=== PATIENT | female | born 1970 | race Caucasian/White ===

== ENCOUNTER 2024-01-09 01:47 | Inpatient (IN) | payer BC, OTHER ==
[~2024-01-09] VITALS: Ht 167.6 cm; Wt 87.0 kg
[2024-01-09] VITALS (16 sets, daily range): BP systolic 128–177; BP diastolic 70–118
[~2024-01-09 01:47] MED LIST: ALEVE220 M1 PO; ALTACE5 MG OR; BUPROPION150 MG PO; BUSPIRONE10 MG PO; BUSPIRONE15 MG PO; BUSPIRONE30 MG PO; EFFEXOR100 MG OR; GLIPIZIDE5 M2 PO; GOLYTELY4000 ML OR; HYDROCHLOROT12.5 MG PO; KADIAN60 MG OR; LISINOP/HCTZ1 TA2 PO; LISINOP/HCTZ1 TAB PO; LISINOPRIL10 MG PO; LORTAB 7.5 OR; MELOXICAM7.5 MG OR; METFORMIN1000 MG PO; METHADONE10 M1 OR; NEURONTIN300 MG PO; NEURONTIN800 MG PO; ROPINIROLE0.25 MG PO; ROPINIROLE1 MG PO; ROPINIROLE2 MG PO; TRAZODONE HCL100 MG PO; TRAZODONE HCL50 MG PO; TRIAMCINOLON0.11 EX; ULTRAM50 MG OR; ZOFRAN4 MG/TAB PO; allo PO
--- NOTE | 2024-01-09 01:55 | NUR ---
PT AMBULATED TO RM 1 W/ STEADY GAIT.
[2024-01-09] MEDS ORDERED: SODIUM CHLORIDE 0.9% 1,000 ML IV STA (02:10)
[2024-01-09] MEDS ORDERED: VANCOMYCIN HCL 1 GM in SODIUM CHLORIDE 0.9% 250 ML IV ONE (02:15)
[2024-01-09] MEDS ORDERED: KETOROLAC TROMETHAMINE 30 MG/ML SDV IV ONE (02:15)
[2024-01-09] MEDS ORDERED: ACETAMINOPHEN 500 MG TAB PO ONE (02:15)
[2024-01-09] MEDS ORDERED: PIPERACILLIN Sodium-Tazobactam 3.375 GM in SODIUM CHLORIDE 0.9% 100 ML IV ONE (02:15)
[2024-01-09] MEDS ORDERED: GABAPENTIN 300 MG/CAP PO ONE (02:15)
[2024-01-09 02:51] LABS: BASO% 0.3 % (0-3); EOS% 3.7 % (0-8); HEMATOCRIT 39.3 % (37.0-47.0); HEMOGLOBIN 12.2 g/dl (12.0-16.0); IMMATURE GRANULOCYTES 0.5 % (0.0-5.0); LYMPH% 17.9 % (15-41); MEAN CORPUSCULAR HGB 31.4 pG CALC (26.0-32.0); MONO% 4.8 % (2-13); NEUT# 6.75 thou/uL (2.00-7.15); NEUT% 72.8 % (42-76); RED BLOOD COUNT 3.89 mill/uL (4.20-5.60); RED CELL DISTRI WIDTH 14.4 % (11.5-15.5)
[2024-01-09 02:55] LABS: ALBUMIN 4.1 g/dL (3.2-5.0); BILIRUBIN, TOTAL 0.7 mg/dL (0.02-1.3); CREATININE 0.8 mg/dL (0.5-1.0); POTASSIUM 3.4 mmol/l (3.5-5.1); TOTAL PROTEIN 8.3 g/dL (6.3-8.2)
[2024-01-09 03:15] LABS: C-REACTIVE PROTEIN 4.1 mg/dL (0-0.9)
--- NOTE | 2024-01-09 03:15 | NUR ---
PATIENT RESTING IN BED, SLEEPING, RISE AND FALL OF CHEST NOTED.
--- NOTE | 2024-01-09 04:50 | NUR ---
PATIENT RESTING IN BED, NO APPARENT DISTRESS NOTED. PATIENT ADVISED ON PLAN TO ADMIT PATIENT FOR FURTHER MANAGEMENT.
[2024-01-09] MEDS ORDERED: GABAPENTIN 300 MG/CAP PO SCH (06:24)
[2024-01-09] MEDS ORDERED: ONDANSETRON 4 MG/TAB ODT PO PRN (06:25)
[2024-01-09] MEDS ORDERED: NICOTINE TRANSDERMAL 21 MG/PATCH TD PRN (06:25)
[2024-01-09] MEDS ORDERED: ALUM & MAG HYDROX-SIMETHICONE 30 ML PO PRN (06:25)
[2024-01-09] MEDS ORDERED: ACETAMINOPHEN 325 MG/TAB PO PRN ×2 (06:25→06:30)
[2024-01-09] MEDS ORDERED: FAMOTIDINE 10MG/ML 2ML SDV IV PRN (06:25)
[2024-01-09] MEDS ORDERED: ONDANSETRON HCl 4 MG/2 ML SDV IV PRN (06:25)
[2024-01-09] MEDS ORDERED: MAGNESIUM HYDROXIDE 30 ML UDC PO PRN ×2 (06:25→06:30)
[2024-01-09] MEDS ORDERED: ENOXAPARIN SODIUM 40 MG/0.4 ML SYR SC ONE (06:25)
[2024-01-09] MEDS ORDERED: IBUPROFEN 800 MG/TAB PO PRN (06:25)
[2024-01-09] MEDS ORDERED: SODIUM CHLORIDE 0.9% 1,000 ML IV PRN ×2 (06:25→06:30)
--- NOTE | 2024-01-09 06:28 | NUR ---
REPORT GIVEN TO Masha FULLER RN
[2024-01-09] MEDS ORDERED: DEXTROSE 250 ML IV PRN ×2 (06:30→09:30)
[2024-01-09] MEDS ORDERED: KETOROLAC TROMETHAMINE 30 MG/ML SDV IV PRN (06:35)
--- NOTE | 2024-01-09 06:52 | NUR ---
REPORT GIVEN TO Kimberly MARTINEZ RN. PATIENT TO GO UP TO [facility] ON DAYHSIFT.
[2024-01-09] MEDS ORDERED: chlordiazePOXIDE HCL 25 MG CAP PO PRN (06:55)
[2024-01-09] MEDS ORDERED: LORazepam 2 MG/ML IV PRN (06:55)
[2024-01-09] MEDS ORDERED: INSULIN LISPRO 100 UNITS/ML ML SC SCH ×2 (07:00→11:00)
--- NOTE | 2024-01-09 07:22 | NUR ---
PT TRANSPORTED TO [facility] BED 272, PT TOLEREATED WELL
--- NOTE | 2024-01-09 08:15 | NUR ---
aSSESSMENT COMPLETED ON PT. pT FALLS ASLEEP while completing assessment, wakes easily. No complaints, no distress.
--- NOTE | 2024-01-09 08:44 | NUR ---
Pt denies alcohol or recreational drug use. Claims room mates do "those things' not her.
[2024-01-09] MEDS ORDERED: MULTIPLE VITAMIN 10 ML,THIAMINE HCL 100 MG in DEXTROSE 5% / 0.9% NACL 1,000 ML IV SCH (09:00)
[2024-01-09] MEDS ORDERED: PANTOPRAZOLE SODIUM Sesquihydr 40 MG/TAB PO SCH (09:00)
[2024-01-09] MEDS ORDERED: VANCOMYCIN HCL 1 GM in SODIUM CHLORIDE 0.9% 250 ML IV SCH (11:00)
--- NOTE | 2024-01-09 11:00 | NUR ---
S: SHARON YAP is a 53 F who presents with diabetic fult ucers with possible cellulitis/osteomyelitis. W 87 kg, HT 66 in, Scr= 0.8,CrCl= 92.5 ml/min A: Blood culture is pending P: Patient is on Zosyn 3,375g iv q6h. Vancomycin ordered for pharmacy to dose. Start Vancomycin 1 g IV Q8H. Vancomycin trough is drawn before the 4th dose on 01-10-24 @0230. Vancomycin goal trough is between 10-20 mcg/ml. Pharmacy will follow and or advise on antibiotics use as needed.
[2024-01-09] MEDS ORDERED: PIPERACILLIN Sodium-Tazobactam 3.375 GM in SODIUM CHLORIDE 0.9% 100 ML IV SCH (12:00)
--- NOTE | 2024-01-09 12:00 | NUR ---
pT RESTING IN BED EATING LUNCH. fINISHES LUNCH, ROLLS ON SIDE AND PROMTLY GOES TO SLEEP, SNORING SOFTLY. nO DISTRESS, NO COMPLAINTS.
--- NOTE | 2024-01-09 16:00 | NUR ---
Pt still sleeping, snoring softly. Pt wakes easily, knows where she is, oriented X 4. Pt now sitting up, completing ADLs. No distress, no complaints.
--- NOTE | 2024-01-09 19:34 | NUR ---
bedside report completed. patient laying in bed awake and alert. able to make needs known. assessment done. edema observed on both legs, +2 pitting, cool to touch. slight weaping to right lower extremity. patient denies any pain at this time. bed remains in low position. call lemus and belongings in reach.
--- NOTE | 2024-01-09 20:08 | NUR ---
01/09/2024 @1999 pt glucose was 160
[2024-01-09] MEDS ORDERED: ENOXAPARIN SODIUM 40 MG/0.4 ML SYR SC SCH (21:00)
--- NOTE | 2024-01-09 23:44 | NUR ---
patient in bed asleep, snoring noted. wakes to verbal stimuli. can make needs known. denies any needs at this moment. bed at lowest position, personal items and call light within reach.
[2024-01-10 04:00] VITALS: BP 140/98
--- NOTE | 2024-01-10 04:15 | NUR ---
patient in bed asleep on left side. wakes up to verbal stimuli. makes needs known, none needed at this time. bed at lowest position. call light within reach.
[2024-01-10 04:42] VITALS: BP 140/98
[2024-01-10 05:20] LABS: BASO% 0.3 % (0-3); EOS% 7.1 % (0-8); HEMATOCRIT 40.3 % (37.0-47.0); HEMOGLOBIN 12.5 g/dl (12.0-16.0); IMMATURE GRANULOCYTES 0.2 % (0.0-5.0); LYMPH% 25.6 % (15-41); MEAN CELL VOLUME 103.1 fL CALC (80.0-100.0); MONO% 7.6 % (2-13); NEUT# 5.3 thou/uL (2.00-7.15); NEUT% 59.2 % (42-76); RED BLOOD COUNT 3.91 mill/uL (4.20-5.60); RED CELL DISTRI WIDTH 14.5 % (11.5-15.5)
[2024-01-10 05:35] LABS: ALBUMIN 3.4 g/dL (3.2-5.0); BILIRUBIN, TOTAL 0.5 mg/dL (0.02-1.3); C-REACTIVE PROTEIN 3.9 mg/dL (0-0.9); CHOLESTEROL HDL RATIO 2.9 (<4.4 (CALC)); CREATININE 0.7 mg/dL (0.5-1.0); POTASSIUM 3.6 mmol/l (3.5-5.1); TOTAL PROTEIN 7.2 g/dL (6.3-8.2)
[2024-01-10 06:53] VITALS: BP 136/80
--- NOTE | 2024-01-10 07:00 | NUR ---
PT LAYING IN BED RESTING WITH EYES CLOSED, AROUSES EASILY TO VERBAL STIMULI, PUPILS PERRL, ABD DISTENDED AND SOFT, ACTIVE BOWEL SOUNDS, STRONG RADIAL PULSES, WEAK PEDAL PULSES, 2+ EDEMA BILAT LE, 20G RFA IV WITH FLUIDS INFUSING AT PRESCRIBED RATE, SAFETY MEASURES REINFORCED, CALL CARDONA WITHIN REACH
--- NOTE | 2024-01-10 07:35 | NUR ---
PT ASSISTED TO WC AND TAKEN TO RADIOLOGY BY NURSE
--- NOTE | 2024-01-10 08:15 | NUR ---
PT RETURNED FROM RADIOLOGY VIA WC WITH NURSE, STAND BY ASSISTANCE PROVIDED TO PT TO AMBULATE TO BED, SAFETY MEASURES REINFORCED CALL CARDONA WITHIN REACH
[2024-01-10] MEDS ORDERED: MULTIPLE VITAMIN TABLET PO SCH (09:00)
[2024-01-10] MEDS ORDERED: THIAMINE HCL 100 MG TAB PO SCH (09:00)
[2024-01-10] MEDS ORDERED: FOLIC ACID 1 MG/TAB PO SCH (09:00)
--- NOTE | 2024-01-10 09:04 | NUR ---
PT TO RADIOLOGY FOR MRI VIA
[2024-01-10 10:41] VITALS: BP 141/99
--- NOTE | 2024-01-10 11:28 | NUR ---
S: SHARON YAP is a 53 F who presents with diabetic fult ucers with possible cellulitis/osteomyelitis. W 87 kg, HT 66 in, Scr= 0.7,CrCl= 105.7 ml/min Vancomycin trough 01/10/24: 12 A: Blood culture is pending P: Patient is on Zosyn 3,375g iv q6h. Vancomycin ordered for pharmacy to dose. Continue vancomycin 1 g IV Q8H. Vancomycin trough is drawn before the dose on 01-11-24 @0230. Vancomycin goal trough is between 10-15 mcg/ml. Pharmacy will follow and or advise on antibiotics use as needed.
[2024-01-10] MEDS ORDERED: ALPRAZolam 0.5 MG/TAB PO SCH (11:30)
--- NOTE | 2024-01-10 11:45 | NUR ---
PT ASSISTED WITH GETTING SETUP FOR LUNCH, PT DENIES ANY OTHER NEEDS AT THIS TIME, CALL CARDONA WITHIN REACH
[2024-01-10] MEDS ORDERED: LEVOFLOXACIN750 MG PO (12:30)
[2024-01-10] MEDS ORDERED: XANAX0.25 MG PO (12:48)
--- NOTE | 2024-01-10 14:08 | NUR ---
PT LAYING IN BED RESTING WITH EYES CLOSED, AROUSES EASILY TO VERBAL STIMULI, CALL CARDONA WITHIN REACH
--- NOTE | 2024-01-10 15:09 | NUR ---
FAX DEMO SHEET TO [phone] RIOS WednesdayJANUARY 12 @ 11:15 DR RIOS'S OFFICE NUMBER [phone]
[2024-01-10 15:37] VITALS: BP 159/92
--- NOTE | 2024-01-10 16:00 | NUR ---
PT ATTEMPTING TO CONTACT SOMEONE TO COME PICK HER UP TO TAKE HER HOME, PT DENIES ANY NEEDS AT THIS TIME, CALL CARDONA WITHIN REACH
--- NOTE | 2024-01-10 17:00 | NUR ---
Discharge instructions given. Patient verbalizes understanding of same. Discharged in stable condition via Wheelchair to Home with family. All belongings sent with pt.
== END 2024-01-10 17:00 | disposition home or self-care (01) | DRG 638 ==
LOC: ED 01:47 → ED-I 05:09 → ED 06:27 → MS2 06:28
PROVIDERS: Family Medicine; ADMIT Student in an Organized Health Care Education/Training Program; ATTEND Student in an Organized Health Care Education/Training Program
DX: E11.69 Type 2 diabetes mellitus with other specified complication (principal); L97.516 Non-pressure chronic ulcer of other part of right foot with bone involvement without evidence of necrosis; M86.8X7 Other osteomyelitis, ankle and foot; L97.526 Non-pressure chronic ulcer of other part of left foot with bone involvement without evidence of necrosis; E11.621 Type 2 diabetes mellitus with foot ulcer; E11.65 Type 2 diabetes mellitus with hyperglycemia; L84 Corns and callosities; I10 Essential (primary) hypertension; F15.10 Other stimulant abuse, uncomplicated; F16.10 Hallucinogen abuse, uncomplicated; K74.60 Unspecified cirrhosis of liver; M10.9 Gout, unspecified; E66.9 Obesity, unspecified; F17.290 Nicotine dependence, other tobacco product, uncomplicated; T38.3X6A Underdosing of insulin and oral hypoglycemic [antidiabetic] drugs, initial encounter; Z91.128 Patient's intentional underdosing of medication regimen for other reason; Z68.30 Body mass index [BMI] 30.0-30.9, adult; Z98.84 Bariatric surgery status
CPT/HCPCS: J1650

== ENCOUNTER 2024-01-26 12:07 | Inpatient (IN) | payer BC, OTHER ==
[~2024-01-26] VITALS: Ht 167.6 cm; Wt 71.6 kg
[~2024-01-26 12:07] MED LIST changes: +LEVOFLOXACIN750 MG PO; +XANAX0.25 MG PO
--- NOTE | 2024-01-26 12:20 | NUR ---
PT ARRIVED ON UNIT @ 1220 DIRECT ADMIT TRANSPORTED VIA W/C AND SETTLED IN ROOM. ALER AND ORIENTED X 4, DENIES PAIN BUT STATED SHE IS VERY HUNGRY SHE HASNT EATEN SINCE THIS AM. FLOOR NURSE KEANU PLACED IV CATHETER, ORDERED LABS DRAWN. ORIENTED TO ROOM AND CALL CARDONA, EDUCATED ON FALL PREVENTIONS/PRECAUTIONS, HUNGER NEEDS ADDRESSED, WILL CONTINUE TO MONITOR.
[2024-01-26 12:23] VITALS: BP 161/104
[2024-01-26 13:30] LABS: BASO% 0.4 % (0-3); EOS% 6.8 % (0-8); HEMATOCRIT 38.5 % (37.0-47.0); HEMOGLOBIN 12.1 g/dl (12.0-16.0); IMMATURE GRANULOCYTES 0.1 % (0.0-5.0); LYMPH% 19.5 % (15-41); MEAN CELL VOLUME 99.2 fL CALC (80.0-100.0); MEAN CORPUSCULAR HGB 31.2 pG CALC (26.0-32.0); MEAN CORPUSCULAR HGB CONC 31.4 g/dL CAL (32.0-36.0); MONO% 5.4 % (2-13); NEUT# 4.8 thou/uL (2.00-7.15); NEUT% 67.8 % (42-76); RED BLOOD COUNT 3.88 mill/uL (4.20-5.60); RED CELL DISTRI WIDTH 14.3 % (11.5-15.5)
[2024-01-26 13:46] LABS: ALBUMIN 3.6 g/dL (3.2-5.0); BILIRUBIN, TOTAL 0.5 mg/dL (0.02-1.3); CREATININE 0.7 mg/dL (0.5-1.0); POTASSIUM 4.2 mmol/l (3.5-5.1); TOTAL PROTEIN 6.9 g/dL (6.3-8.2)
--- NOTE | 2024-01-26 13:56 | NUR ---
TRANSPORTED OF UNIT VIA W/C BY VOLUNTEER AT THIS TIME TO RADIOLOGY FOR PROCEDURE.
[2024-01-26] MEDS ORDERED: ALUM & MAG HYDROX-SIMETHICONE 30 ML PO PRN (14:10)
[2024-01-26] MEDS ORDERED: Polyethylene Glycol 3350 17 GM/PKT PO PRN (14:10)
[2024-01-26] MEDS ORDERED: LORazepam 0.5 MG/TAB PO PRN (14:10)
[2024-01-26] MEDS ORDERED: SODIUM CHLORIDE 0.9% 10 ML SYR IV PRN (14:10)
[2024-01-26] MEDS ORDERED: ACETAMINOPHEN 325 MG/TAB PO PRN (14:10)
[2024-01-26 15:24] VITALS: BP 142/95
[2024-01-26] MEDS ORDERED: CEFEPIME HYDROCHLORIDE 2 GM in SODIUM CHLORIDE 0.9% 100 ML IV SCH (15:30)
[2024-01-26] MEDS ORDERED: LISINOPRIL 20 MG/TAB PO SCH (15:30)
[2024-01-26 15:39] VITALS: BP 116/71
[2024-01-26] MEDS ORDERED: VANCOMYCIN HCL 1 GM in SODIUM CHLORIDE 0.9% 250 ML IV SCH (16:00)
[2024-01-26 18:30] VITALS: BP 141/93
[2024-01-26 19:23] VITALS: BP 141/93
--- NOTE | 2024-01-26 21:00 | NUR ---
PT RESTING NO DISTRESS NOTED ON ASSESSMENT. PT HAS BLE TOE WOUNDS PIC IN CHART. PT REPORTS NO PAIN AT THIS TIME. VS WNL ON RA. IV SITE FLUSHED WORKING PROPERLY. LUNGS CLEAR. PROVIDED PT WITH ATIVAN A SLEEPING AID SINCE PT STATED HAVING TROUBLE SLEEPING PRIOR NIGHT. SNACKS PROVIDED. CALL LIGHT WITHIN REACH.
[2024-01-26 23:54] VITALS: BP 109/67
[2024-01-27] VITALS (12 sets, daily range): BP systolic 109–149; BP diastolic 67–97
[2024-01-27 00:25] LABS: URINE BILIRUBIN - DIPSTICK Negative (NEGATIVE); URINE BLOOD DIPSTICK Negative (NEGATIVE); URINE GLUCOSE - DIPSTICK Negative (NEGATIVE); URINE KETONE Negative (NEGATIVE); URINE LEUK ESTERASE Negative (NEGATIVE); URINE NITRITE - DIPSTICK Negative (Negative); URINE PH 6.5 (4.5-8.0); URINE PROTEIN - DIPSTICK Negative (NEG-TRACE); URINE SPECIFIC GRAVITY 1.015; URINE UROBILINOGEN - DIPSTICK 0.2 E.U./dL (0.2)
--- NOTE | 2024-01-27 00:30 | NUR ---
PT RESTING NO DISTRESS NOTED. IV SITE FLUSHED WORKING PROPERLY. MRSA SWAB COLLECTED SINCE PT HAS A HISTORY OF MRSA. PT PLACED ON CONTACT PRECAUTIONS. CALL LIGHT WITHIN REACH. PLAN OF CARE ONGOING.
[2024-01-27 00:38] LABS: URINE COLOR Yellow
--- NOTE | 2024-01-27 04:09 | NUR ---
PT RESTING NO DISTRESS NOTED ON EXAM. IV SITE WORKING PROPERLY FLUSHED SL. CALL LIGHT WITHIN REACH. PLAN OF CARE ONGOING.
[2024-01-27 04:54] LABS: BASO% 0.4 % (0-3); EOS% 10.2 % (0-8); HEMATOCRIT 40.1 % (37.0-47.0); HEMOGLOBIN 12.5 g/dl (12.0-16.0); IMMATURE GRANULOCYTES 0.1 % (0.0-5.0); LYMPH% 31.7 % (15-41); MEAN CELL VOLUME 100.8 fL CALC (80.0-100.0); MEAN CORPUSCULAR HGB 31.4 pG CALC (26.0-32.0); MEAN CORPUSCULAR HGB CONC 31.2 g/dL CAL (32.0-36.0); MONO% 8.9 % (2-13); NEUT# 3.66 thou/uL (2.00-7.15); NEUT% 48.7 % (42-76); RED BLOOD COUNT 3.98 mill/uL (4.20-5.60); RED CELL DISTRI WIDTH 14.4 % (11.5-15.5)
[2024-01-27 05:17] LABS: ALBUMIN 3.5 g/dL (3.2-5.0); BILIRUBIN, TOTAL 0.6 mg/dL (0.02-1.3); CREATININE 0.8 mg/dL (0.5-1.0); MAGNESIUM 2.2 mg/dL (1.6-2.3); POTASSIUM 4.5 mmol/l (3.5-5.1); TOTAL PROTEIN 6.8 g/dL (6.3-8.2)
--- NOTE | 2024-01-27 09:07 | NUR ---
S: SHARON YAP is a 53 F who presents with acute osteomyelitis. She has a history of diabetes, hypertension, gout, neuropathy, gastritis, and cirrhosis of liver. All medications in patient's chart were reviewed. O: VS: BP= 127/79mmHg, P= 80 bpm, RR= 18 bpm,T= 96.7F W= 71.6 kg, HT= 167.64 cm, Scr=0.7mg/dL,CrCl= 96.0 ml/min A: MRSA Surveullance Culture is pending. P: Patient is on Cefepime 2GM IV Q12H. Vancomycin ordered for pharmacy to dose. Start Vancomycin 1GM IV Q8H. Vancomycin trough is drawn before the dose on 01/27/2024 at 15:30 Vancomycin goal trough is between 15-20 mcg/ml. Pharmacy will follow and or advise on antibiotics use as needed.
[2024-01-27] MEDS ORDERED: SODIUM CHLORIDE 0.9% 1,000 ML IV PRN (10:05)
--- NOTE | 2024-01-27 15:52 | NUR ---
S: SHARON YAP is a 53 F who presents with DM foot ulcers and osteomyelitis. She has a history of DM, HTN, gout, and cirrhosis. All medications in patient's chart were reviewed. O: VS: BP 134/81, P 86, RR 18, T 97 W 71.6 kg, HT 66 in, Scr=0.8, CrCl= 84.3 ml/min Vancomycin trough 01/26@1505 = 14; Predicted AUC = 479 A: MRSA nasal swab is pending. Vancomycin trough slightly below goal of 15-20, however AUC at goal between 400 - 600. No change in dose warranted. P: Patient is on cefepime 2 g IV q12h and vancomycin 1 g IV q8h Vancomycin ordered for pharmacy to dose. Continue Vancomycin 1 g IV Q8H. Vancomycin trough is drawn before the dose on 01/28/24@1530. Vancomycin goal trough is between 15-20 mcg/ml. Goal AUC 400-600. Pharmacy will follow and or advise on antibiotics use as needed.
--- NOTE | 2024-01-27 16:11 | NUR ---
RESTING IN BED AT THIS TIME AFTER SHOWERING, STABLE CONDITION, NO COMPLAINS
--- NOTE | 2024-01-27 20:00 | NUR ---
PT RESTING NO DISTRESS NOTED DURING ASSESSMENT. PT REMINDED OF PROCEDURE TOMORROW AND NPO STATUS STARTING AT MIDNIGHT. PT STATED UNDERSTANDING. IV SITE FLUSHED WORKING PROPERLY NS INFUSION @ 100ML/HR ONGOING. VS WNL ON RA NO PAIN REPORTED AT THIS TIME. CALL LIGHT WITHIN REACH. PLAN OF CARE ONGOING.
[2024-01-28] VITALS (13 sets, daily range): BP systolic 123–150; BP diastolic 84–107
--- NOTE | 2024-01-28 05:03 | NUR ---
PT RESTING NO DISTRESS NOTED DURING EXAM. IV SITE CHECKED WORKING PROPERLY. CALL LIGHT WITHIN REACH. PLAN OF CARE ONGOING.
[2024-01-28 05:19] LABS: BASO% 0.5 % (0-3); EOS% 10.7 % (0-8); HEMATOCRIT 37.3 % (37.0-47.0); HEMOGLOBIN 11.9 g/dl (12.0-16.0); IMMATURE GRANULOCYTES 0.2 % (0.0-5.0); LYMPH% 28.9 % (15-41); MEAN CELL VOLUME 100.3 fL CALC (80.0-100.0); MEAN CORPUSCULAR HGB CONC 31.9 g/dL CAL (32.0-36.0); MONO% 8.3 % (2-13); NEUT# 3.27 thou/uL (2.00-7.15); NEUT% 51.4 % (42-76); RED BLOOD COUNT 3.72 mill/uL (4.20-5.60); RED CELL DISTRI WIDTH 14.4 % (11.5-15.5)
[2024-01-28 05:29] LABS: ALBUMIN 3.4 g/dL (3.2-5.0); BILIRUBIN, TOTAL 0.4 mg/dL (0.02-1.3); CREATININE 0.6 mg/dL (0.5-1.0); MAGNESIUM 2.1 mg/dL (1.6-2.3); POTASSIUM 4.3 mmol/l (3.5-5.1); TOTAL PROTEIN 6.7 g/dL (6.3-8.2)
--- NOTE | 2024-01-28 07:05 | NUR ---
PATIENT LEFT TO OR.
[2024-01-28] MEDS ORDERED: STERILE WATER FOR IRRIGATION 1,000 ML BTL IR ONE (07:06)
[2024-01-28] MEDS ORDERED: SODIUM CHLORIDE 1,000 ML BTL IR ONE (07:06)
[2024-01-28] MEDS ORDERED: BUPIVACAINE HCL PF 0.5% 30 ML VIAL ONE (07:06)
[2024-01-28] MEDS ORDERED: SODIUM CHLORIDE 0.9% 1,000 ML IV ONE (07:15)
[2024-01-28] MEDS ORDERED: SODIUM CHLORIDE 0.9% 10 ML SYR ONE (07:17)
[2024-01-28] MEDS ORDERED: KETOROLAC TROMETHAMINE 30 MG/ML SDV ONE (08:46)
--- NOTE | 2024-01-28 09:48 | NUR ---
PT RETURNED FROM OR, ASSISTED PT TO BSC WITH NO WEIGHT ON RIGHT FOOT. RIGHT FOOT HAS DRESSING WITH SOME SHADOWING PRESENT ON END OF TOE AREA. RESPIRATIONS ARE EVEN AND UNLABORED, LUNGS ARE CLEAR, BOWEL SOUNDS ARE ACTIVE, PEDAL PULSES PALPABLE ON LEFT FOOT, LEFT GREAT TOE AND 2ND TOE TIP APPEAR TO HAVE AN OLD WOUND IN STAGES OF HEALING, RIGHT LOWER LEG WITH SOME REDNESS NOTED. PT DENIES PAIN AT THIS TIME BUT COMPLAINS OF BEING HUNGRY. ICE CHIPS PROVIDED, WILL ADVANCE DIET PER ORDER TOLERATED, RIGHT FOOT ELEVATED ON 2 PILLOWS AT THIS TIME.
--- NOTE | 2024-01-28 10:17 | NUR ---
VANCO WAS STARTED IN OR AT 0815 AND RESUMED IMMEDIATELY UPON ARRIVAL TO ROOM.
[2024-01-28] MEDS ORDERED: LIDOCAINE HCL 2% 2ML SDV IV ONE (12:06)
[2024-01-28] MEDS ORDERED: PROPOFOL 200 MG/20 ML VIAL IV ONE (12:06)
[2024-01-28] MEDS ORDERED: SUGAMMADEX SODIUM 200 MG/2 ML SDV IV ONE (12:06)
--- NOTE | 2024-01-28 12:07 | NUR ---
PT RESTING COMFORTABLY AT THIS TIME, PT SLEEPING.
--- NOTE | 2024-01-28 15:58 | NUR ---
PT IS SLEEPING COMFORTABLY IN BED AT THIS TIME. RIGHT FOOT IS ELEVATED ON 2 PILLOWS.
--- NOTE | 2024-01-28 16:20 | NUR ---
S: SHARON YAP is a 53 F who presents with OSTEOMYELITIS. All medications in patient's chart were reviewed. O: VS: BP 123/84, P 85, RR 18,T 96.4 W <71kg>, HT<66in>, Scr=<0.6>,CrCl= <99ml/min> TROUGH=21 A: WOUND CULTURE IS PENDING P: Patient is on CEFEPIME 2GM IV Q12H AND VANCOMYCIN 1GM IV Q8H. Vancomycin ordered for pharmacy to dose. CONTINUE Vancomycin 1 GM IV Q8H. Vancomycin trough is drawn before the 3RD dose on 01/29/24 @0730. CONTINUE SAME DOSEAGE DESPITE TROUGH OF 21 DUE TO ABX GIVEN LATER THAN NORMAL DUE TO SURGERY, PREVIOUS TROUGH =14 WITH SAME DOSAGE, AND PT KIDNEY FUNCTION IMPROVING. REASSESS ON 3RD DOSE TO DETERMINE THERAPY MODIFICATION. Vancomycin goal trough is between 15-20 mcg/ml. Pharmacy will follow and or advise on antibiotics use as needed.
--- NOTE | 2024-01-28 19:50 | NUR ---
PT RESTING NO DISTRESS NOTED ON EXAM. IV SITE FLUSHED WORKING PROPERLY. NO PAIN REPORTED AT THIS TIME VS WNL ON RA. DRESSING ON RIGHT FOOT INTACT DRAINAGE FROM THE BETADINE WITH BOOT ON. BLE REDNESS WITH +1 EDEMA GREATER ON THE RIGHT LEG. BSC SETUP. CALL LIGHT WITHIN REACH. PLAN OF CARE ONGOING.
--- NOTE | 2024-01-29 | NUR ---
PT RESTING NO DISTRESS NOTED ON EXAM. RIGHT LEG ELEVATED. IV SITE FLUSHED WORKING PROPERLY ABX GIVEN. CALL LIGHT WITHIN REACH. PLAN OF CARE ONGOING.
[2024-01-29 03:53] VITALS: BP 138/97
--- NOTE | 2024-01-29 04:00 | NUR ---
PT RESTING NO DISTRESS NOTED ON EXAM. WHEN PT AWAKEN SHE STATED THAT SHE WAS HAVING PAIN ON HER RIGHT FOOT. ABX IV GIVEN AND IV FLUIDS ONGOING. NURSE INFORMED PT THAT SHE WOULD CHECK COMPUTER TO SEE WHAT SHE HAD AVAILABLE TO GIVE HER. WHEN NURSE RETURNED TO TELL HER THAT SHE ONLY HAS TYLENOL AVAILABLE SHE WAS ASLEEP. CALL LIGHT WITHIN REACH. PLAN OF CARE ONGOING.
[2024-01-29 06:00] LABS: BASO% 0.4 % (0-3); EOS% 7.4 % (0-8); HEMATOCRIT 37.8 % (37.0-47.0); HEMOGLOBIN 11.8 g/dl (12.0-16.0); IMMATURE GRANULOCYTES 0.1 % (0.0-5.0); LYMPH% 26.1 % (15-41); MEAN CELL VOLUME 99.5 fL CALC (80.0-100.0); MEAN CORPUSCULAR HGB 31.1 pG CALC (26.0-32.0); MEAN CORPUSCULAR HGB CONC 31.2 g/dL CAL (32.0-36.0); MONO% 7.4 % (2-13); NEUT# 3.96 thou/uL (2.00-7.15); NEUT% 58.6 % (42-76); RED BLOOD COUNT 3.8 mill/uL (4.20-5.60); RED CELL DISTRI WIDTH 14.4 % (11.5-15.5)
[2024-01-29 06:25] VITALS: BP 150/102
[2024-01-29 06:35] LABS: ALBUMIN 3.5 g/dL (3.2-5.0); CREATININE 0.7 mg/dL (0.5-1.0); MAGNESIUM 2.1 mg/dL (1.6-2.3); POTASSIUM 4.6 mmol/l (3.5-5.1)
--- NOTE | 2024-01-29 06:37 | NUR ---
PT STATED SHE IS HAVING PAIN ON HER RIGHT FOOT 02/04. NURSE CONTACTED GAS APPLIANCE REPAIRER PROVIDER AND RECEIVED AN ORDER FOR LORTAB 5MG Q4H PRN. AT THIS TIME NURSE IS WAITING ON PHARMACY.
[2024-01-29 06:41] LABS: BILIRUBIN, TOTAL 0.7 mg/dL (0.02-1.3)
[2024-01-29] MEDS ORDERED: HYDROcodone 5 MG/Acetaminophen 325 MG/COMBO PO PRN (06:45)
--- NOTE | 2024-01-29 08:00 | NUR ---
RECEIVED REPORT FROM NIGHTSHIFT NURSE SELWYN NICOLE. PT NOTED SITTING UP SEMI FOWLERS IN BED, EATING BREAKFAST AT THIS TIME. RT FOOT ELEVATED WITH PILLOWS, BOOT NOTED AND DSG TO RT FOOT NOTED. BETADINE PRESENT ON DSG. PT IS A/OX3, RM AIR. DENIES ANY PAIN AT THIS TIME. ASSESSMENT COMPLETED (SEE NURSING INTERVENTIONS) AND IV SITE APPEARS HEALTHY AND INTACT WITH FLUIDS RUNNING PER EMAR. EDUCATED PT ON PLAN OF CARE, POST OP CARE, AND MED SCHEDULE. CALL LIGHT WITHIN REACH AND SAFETY PRECAUTIONS IN PLACE.
[2024-01-29] MEDS ORDERED: oxyCODONE 10MG/APAP 325 MG 1 COMBO TAB PO PRN (10:00)
[2024-01-29] MEDS ORDERED: MORPHINE SULFATE 4 MG/ML VIAL IV PRN (10:00)
[2024-01-29 11:29] VITALS: BP 138/91
--- NOTE | 2024-01-29 11:50 | NUR ---
ADMINSITERED MEDICATION PER EMAR FOR PAIN. PT NOTED LAYING IN BED SEMI FOWLERS, RT FOOT ELEVATED. LIGHTS TURNED OFF AND COMFORT MEASURES IN PLACE, ENCOURAGED RELAXTION TECHNIQUES. NO S/S OF DISTRESS. CALL LIGHT WITHIN REACH AND SAFETY PRECAUTIONS IN PLACE.
[2024-01-29] MEDS ORDERED: VANCOMYCIN HCL 1 GM in SODIUM CHLORIDE 0.9% 250 ML IV SCH (12:00)
--- NOTE | 2024-01-29 12:32 | NUR ---
S: SHARON YAP is a 53 F who presents with OSTEOMYELITIS. All medications in patient's chart were reviewed. O: VS: BP 138/91, P 96, RR 20,T 97f W 71kg, HT 66 in, Scr= 0.7,CrCl= 96ml/min TROUGH=25 INCREASE FROM 21 KIDNEY FUNCTION STABLE A: WOUND CULTURE IS PENDING P: Patient is on CEFEPIME 2GM IV Q12H AND VANCOMYCIN 1GM IV Q8H Vancomycin ordered for pharmacy to dose. DECREASE TO Vancomycin 1GM IV Q12H. Vancomycin trough is drawn before the 3RD dose on 01/30/24 @1130. Vancomycin goal trough is between 15-20 mcg/ml. CHNAGE TO Q12H PREDICTED TROUGH =13.8 AND AUC 1 =509. WILL DRAW ON THE 3RD DOSE TO MORE CLOSELY MONITOR THERAPY Pharmacy will follow and or advise on antibiotics use as needed.
[2024-01-29 15:18] VITALS: BP 146/96
--- NOTE | 2024-01-29 16:00 | NUR ---
PT RECEIVED MEDICATION PER EMAR FOR PAIN, TOLERATED WELL. PT LAYING IN BED SEMI FOWLERS, EYES CLOSED RESTING AT THIS TIME. NO S.S OF DISTRESS. RT FOOT REMAINS ELEVATED ON PILLOWS. CALL LIGHT WITHIN REACH AND SAFETY PRECAUTIONS IN PLACE.
[2024-01-29 18:24] VITALS: BP 146/98
--- NOTE | 2024-01-29 20:00 | NUR ---
PT ON BSC STATING SHE IS IN PAIN 7/10 ON HER RIGHT FOOT. NURSE PROVIDED IV PAIN MEDICATION. DRESSING INTACT WITH BETADINE STAIN AND BOOT ON. ASSESSMENT DONE VS WNL ON RA LUNGS CLEAR. CALL LIGHT WITHIN REACH. PLAN OF CARE ONGOING.
[2024-01-29 23:48] VITALS: BP 140/91
--- NOTE | 2024-01-30 | NUR ---
PT RESTING NO DISTRESS NOTED ON EXAM. BSC SETUP FOR PT. IV SITE CHECKED WORKING PROPERLY. CALL LIGHT WITHIN REACH. PLAN OF CARE ONGOING.
--- NOTE | 2024-01-30 04:00 | NUR ---
PT RESTING NO DISTRESS NOTED ON EXAM. RIGHT LEG ELEVATED WITH BOOT ON. IV SITE CHECKED WORKING PROPERLY. CALL LIGHT WITHIN REACH. PLAN OF CARE ONGOING.
[2024-01-30 05:07] VITALS: BP 142/90
[2024-01-30 05:29] LABS: HEMATOCRIT 38.2 % (37.0-47.0); HEMOGLOBIN 11.7 g/dl (12.0-16.0); MEAN CELL VOLUME 101.3 fL CALC (80.0-100.0); MEAN CORPUSCULAR HGB CONC 30.6 g/dL CAL (32.0-36.0); RED BLOOD COUNT 3.77 mill/uL (4.20-5.60); RED CELL DISTRI WIDTH 14.3 % (11.5-15.5)
[2024-01-30 05:41] LABS: ALBUMIN 3.4 g/dL (3.2-5.0); BILIRUBIN, TOTAL 0.5 mg/dL (0.02-1.3); CREATININE 0.7 mg/dL (0.5-1.0); POTASSIUM 4.2 mmol/l (3.5-5.1); TOTAL PROTEIN 6.9 g/dL (6.3-8.2)
[2024-01-30 07:22] VITALS: BP 156/102
--- NOTE | 2024-01-30 08:17 | NUR ---
RECEIVED REPORT FROM NIGHTSHIFT NURSE SELWYN NICOLE. PT NOTED LAYING IN BED SMEI FOWLERS, FINISHED BREAKFAST. PT A/OX3, PRESENTS DROWSY AND C/O PAIN IN RT FOOT 6 OUT OF 10. PT ADMINISTERED PAIN MEDICAITON PER EMAR. PT BOOT REAPPLIED TO RT FOOT, DSG CDI. RT FOOT ELEVATED WITH PILLOWS. NURSING ASSESSMENT COMPELTED, IV SITE APPEARS HEALTHY AND INTACT WITH FLUIDS RUNNING PER EMAR. EDUCATED PT ON PLAN OF CARE AND MED SCHEDULE. NO S/S OF DISTRESS. CALL LIGHT WITHIN REACH AND SAFETY PRECAUTIONS IN PLACE.
--- NOTE | 2024-01-30 12:36 | NUR ---
S: SHARON YAP is a 53 F who presents with osteomyelitis. All medications in patient's chart were reviewed. O: VS: BP 156/102, P 83, RR 18,T 96.6 f W 71kg, HT 66in, Scr=0.7,CrCl= 96ml/min trough =18 A: WOUND CULTURE SHOWS NO GROWTH P: Patient is on CEFEPIME 2GM IV Q12H AND VANCOMYCIN 1GM IV Q12H Vancomycin ordered for pharmacy to dose. Continue Vancomycin 1G IV Q12H. Vancomycin trough is drawn before the 4th dose on 01/31/24 @2330. Vancomycin goal trough is between 15-20 mcg/ml. Pharmacy will follow and or advise on antibiotics use as needed.
--- NOTE | 2024-01-30 12:36 | NUR ---
PT WAS C/O PAIN TO RT FOOT, SEVERE 9 OUT OF 10. PAIN MEDICATION ADMINSITERED PER EMAR. PT LAYING IN BED SUPINE WITH RT FOOT ELEVATED. ENCOURAGED PT TO REST AT THIS TIME. NO S/S OF DISTRESS. CALL LIGHT WITHIN REACH AND SAFETY PRECAUTIONS IN PLACE.
[2024-01-30 13:33] VITALS: BP 153/113
--- NOTE | 2024-01-30 17:02 | NUR ---
PT SITTING UP FOWLERS IN BED WITH RT FOOT ELEVATED, EATING DINNER. NO S/S OF DISTRESS AT THIS TIME. CALL LIGHT WITHIN REACH AND SAFETY PRECAUTIONS PLACE.
[2024-01-30 18:32] VITALS: BP 148/96
[2024-01-30] MEDS ORDERED: ENOXAPARIN SODIUM 40 MG/0.4 ML SYR SC SCH (21:00)
[2024-01-30 23:07] VITALS: BP 124/64
[2024-01-31 03:59] VITALS: BP 140/91
--- NOTE | 2024-01-31 04:02 | NUR ---
PT IN BED REPORTS PAIN TO R TOES. PT MEDICATED PER MAR. NO S/S OF DISTRESS NOTED. BREATHIG IS EVEN ADN UNLABORED. NO OTHER NEEDS OR CONCERNS VOICED, CALL LIGHT IN REACH AND BED IN LOWEST POSITION.
[2024-01-31 04:54] LABS: HEMATOCRIT 40.9 % (37.0-47.0); HEMOGLOBIN 12.5 g/dl (12.0-16.0); MEAN CELL VOLUME 100.5 fL CALC (80.0-100.0); MEAN CORPUSCULAR HGB 30.7 pG CALC (26.0-32.0); MEAN CORPUSCULAR HGB CONC 30.6 g/dL CAL (32.0-36.0); RED BLOOD COUNT 4.07 mill/uL (4.20-5.60)
[2024-01-31 05:17] LABS: ALBUMIN 3.4 g/dL (3.2-5.0); BILIRUBIN, TOTAL 0.5 mg/dL (0.02-1.3); CREATININE 0.6 mg/dL (0.5-1.0); POTASSIUM 4.2 mmol/l (3.5-5.1); TOTAL PROTEIN 6.7 g/dL (6.3-8.2)
[2024-01-31 07:07] VITALS: BP 108/75
--- NOTE | 2024-01-31 07:55 | NUR ---
PATIENT SITTING UP IN BED EATING BREAKFAST. PATIENT A&OX3. BREATHING EVEN AND UNLABORED ON ROOM AIR. LUNG SOUNDS CLEAR. BOWELS ACTIVE IN ALL 4 QUADS. IV IN RFA INFUSING 20 MLS TO KVO. IV SITE CLEAN AND INTACT. TELE INTACT. PT DENIES ANY N/D/V AT THIS TIME. STATES PAIN IS A 5 OUT OF 10. MEDICATION REVEIWED. BED IN LOWEST POSITION. CALL LIGHT WITHIN REACH; PT VERBALIZED UNDERSTANDING OF USE.
[2024-01-31 10:40] VITALS: BP 141/86
[2024-01-31] MEDS ORDERED: SODIUM CHLORIDE 0.9% 0 ML IV ONE (11:16)
--- NOTE | 2024-01-31 12:24 | NUR ---
PATIENT LYING SEMI-FOWLERS IN BED WATCHING TV. BREATHING EVEN AND UNLABORED ON ROOM AIR. IV IN RFA INFUSING VANCOMYCIN @125MLS PER EMAR; SITE CLEAN AND INTACT. DENIES ANY N/D/V. DENIES ANY PAIN. TELE INTACT. BC NEAR BED AND WITHIN REACH. BED IN LOWEST POSITION. CALL LIGHT WITHIN REACH; VERBALIZED UNDERSTANDING OF USE. NO NEEDS AT THIS TIME.
[2024-01-31 15:35] VITALS: BP 133/86
--- NOTE | 2024-01-31 16:00 | NUR ---
PATIENT LYING SEMI-FOWLERS IN BED WITH RIGHT FOOT ELEVATED, WATCHING TV. IV IN RFM INFUSING NS @20MLS. IV SITE CLEAN AND INTACT. TELE INTACT. PT DENIES ANY N/D/V AT THIS TIME. RATES PAIN A 3 OUT OF 10;POST ADMIN OF PAIN MED. BC NEAR BED AND WITHIN REACH, WELL PERSONAL ITEMS. BED IN LOWEST POSITION. CALL LIGHT WITHIN REACH. NO NEEDS AT THIS TIME.
--- NOTE | 2024-01-31 19:20 | NUR ---
awakens easily. no c/o pain voiced. monitor worker shows sinus rhythm ivcd. ivf infusing per rfa site. po fluids taken fair. voids per bsc. fall precautions cont.
[2024-01-31 19:48] VITALS: BP 132/84
--- NOTE | 2024-01-31 23:29 | NUR ---
lab here. blood drawn.
--- NOTE | 2024-02-01 00:01 | NUR ---
conveyor monitor shows sinus rhythm ivcd hr 97.
[2024-02-01 00:15] VITALS: BP 161/112
--- NOTE | 2024-02-01 00:15 | NUR ---
ativan 0.5mg po given per request for sleep.
[2024-02-01 00:41] VITALS: BP 151/99
--- NOTE | 2024-02-01 04:00 | NUR ---
eyes closed. no distress. ivf cont.
[2024-02-01 06:52] VITALS: BP 148/96
--- NOTE | 2024-02-01 07:48 | NUR ---
Patient resting in bed with eyes closed. Breathing even and unlabored on room air. Tele intact. IV in RFA infusing NS @20mls; site clean and intact. BC within reach. Rt foot elevated on 2 pillows. States pain is a 5 out of 10; medication reviewed. Denies any N/D/V at this time. Personal items within reach. Call light in reach; verbalized understanding of use.
[2024-02-01] MEDS ORDERED: CIPROFLOXACN500 MG PO (10:28)
[2024-02-01 10:29] VITALS: BP 139/91
[2024-02-01] MEDS ORDERED: PERCOCET 10/31 COMBO PO (10:29)
[2024-02-01] MEDS ORDERED: VIBRAMYCIN100 M2 PO (10:29)
[2024-02-01] MEDS ORDERED: LORAZEPAM0.5 MG PO (10:30)
--- NOTE | 2024-02-01 11:20 | NUR ---
S: SHARON YAP is a 53 F who presents with osteomyelitis, cellulitis. She has a history of diabetes, hypertension, gout, substance abuse. All medications in patient's chart were reviewed. O: VS: BP 139/91 mmHg, P 90bpm, RR 18 breaths/min, T 96.9 F W 71.6kg, HT 167.64cm, Scr=0.6mg/dL, CrCl= 125.4 ml/min A: Wound culture shows no growth after 48 hours. Nasal culture shows no growth. P: Patient is on Cefepime 2gm IV Q12H. Vancomycin ordered for pharmacy to dose. Current trough rakesh 01/31/24 is 15, within goal. Continue Vancomycin 1gm IV Q12H. Vancomycin trough is drawn before the dose on 02/02/2024 at 11:30. Vancomycin goal trough is between 15-20 mcg/ml. Pharmacy will follow and or advise on antibiotics use as needed.
[2024-02-01 11:26] VITALS: BP 139/91
--- NOTE | 2024-02-01 12:00 | NUR ---
Patient lying in bed watching tv. Breathing even and unlabored on room air. IV in RFA infusing NS @20mls. Rt foot elevated with 2 pillows. Denies any N/D/V at this time. Tele intact. BSC near bed. States she would like something for pain; medication reviewed with pt. Bed in lowest position. Personal items within reach. Call light within reach; verbalized understanding of use.
--- NOTE | 2024-02-01 13:30 | NUR ---
completed wound care on right foot and toe;patient tolerated woudn care with some pain;medicated patient prior to wound care
--- NOTE | 2024-02-01 13:54 | NUR ---
IV site discontinued, cath intact. No edema , no redness, voices no discomfort. Discharge instructions given. Patient verbalizes understanding of same. Discharged in stable condition via Wheelchair to Home with family. All belongings sent with pt.
== END 2024-02-01 13:56 | DRG 617 ==
LOC: MS2 12:07
PROVIDERS: Nurse Practitioner Family; ADMIT Internal Medicine; ATTEND Internal Medicine
PROC: 0Y6T0Z0 Detachment at Right 3rd Toe, Complete, Open Approach (ICD-10-PCS; principal; 2024-01-28)
PROC: 0Y6R0Z3 Detachment at Right 2nd Toe, Low, Open Approach (ICD-10-PCS; 2024-01-28)
PROC: 0QBQ0ZX Excision of Right Toe Phalanx, Open Approach, Diagnostic (ICD-10-PCS; 2024-01-28)
DX: E11.69 Type 2 diabetes mellitus with other specified complication (principal); L03.115 Cellulitis of right lower limb; M86.171 Other acute osteomyelitis, right ankle and foot; L03.116 Cellulitis of left lower limb; L97.518 Non-pressure chronic ulcer of other part of right foot with other specified severity; E11.628 Type 2 diabetes mellitus with other skin complications; E11.621 Type 2 diabetes mellitus with foot ulcer; I10 Essential (primary) hypertension; E11.40 Type 2 diabetes mellitus with diabetic neuropathy, unspecified; M10.9 Gout, unspecified; K75.81 Nonalcoholic steatohepatitis (NASH); K74.60 Unspecified cirrhosis of liver; E66.9 Obesity, unspecified; F41.9 Anxiety disorder, unspecified; R45.1 Restlessness and agitation; F17.290 Nicotine dependence, other tobacco product, uncomplicated; Z98.84 Bariatric surgery status; Z68.25 Body mass index [BMI] 25.0-25.9, adult; Z20.822 Contact with and (suspected) exposure to COVID-19
CPT/HCPCS: J0692; J1650

== ENCOUNTER 2024-02-09 02:38 | Emergency (ER) | payer BC, OTHER ==
[~2024-02-09] VITALS: Ht 167.6 cm; Wt 95.0 kg
[~2024-02-09 02:38] MED LIST changes: +CIPROFLOXACN500 MG PO; +LORAZEPAM0.5 MG PO; +PERCOCET 10/31 COMBO PO; +VIBRAMYCIN100 M2 PO
[2024-02-09] MEDS ORDERED: GABAPENTIN 300 MG/CAP PO ONE (03:10)
[2024-02-09] MEDS ORDERED: GABAPENTIN400 MG PO (03:11)
[2024-02-09 03:22] VITALS: BP 139/93
[2024-02-10] MEDS ORDERED: CLINDAMYCIN HY300 MG PO (18:19)
== END 2024-02-09 03:28 | disposition home or self-care (01) | DRG 74 ==
LOC: ED 02:38
DX: E11.42 Type 2 diabetes mellitus with diabetic polyneuropathy (principal); I10 Essential (primary) hypertension; K74.60 Unspecified cirrhosis of liver; M10.9 Gout, unspecified; Z98.84 Bariatric surgery status

== ENCOUNTER 2024-02-10 15:54 | Emergency (ER) | payer BC, OTHER ==
[~2024-02-10] VITALS: Ht 167.6 cm; Wt 97.5 kg
[2024-02-10] VITALS (11 sets, daily range): BP systolic 106–152; BP diastolic 53–122
[~2024-02-10 15:54] MED LIST changes: +GABAPENTIN400 MG PO
[2024-02-10] MEDS ORDERED: CLINDAMYCIN PHOSPHATE 50 ML IV ONE (16:30)
[2024-02-10 17:01] LABS: BASO% 0.7 % (0-3); EOS% 6.8 % (0-8); HEMATOCRIT 38.5 % (37.0-47.0); IMMATURE GRANULOCYTES 0.1 % (0.0-5.0); LYMPH% 17.1 % (15-41); MEAN CELL VOLUME 97.5 fL CALC (80.0-100.0); MEAN CORPUSCULAR HGB 30.4 pG CALC (26.0-32.0); MEAN CORPUSCULAR HGB CONC 31.2 g/dL CAL (32.0-36.0); MONO% 7.5 % (2-13); NEUT# 5.89 thou/uL (2.00-7.15); NEUT% 67.8 % (42-76); RED BLOOD COUNT 3.95 mill/uL (4.20-5.60); RED CELL DISTRI WIDTH 13.8 % (11.5-15.5)
[2024-02-10 17:13] LABS: CREATININE 0.7 mg/dL (0.5-1.0)
[2024-02-10 17:20] LABS: ALBUMIN 4.4 g/dL (3.2-5.0); POTASSIUM 3.2 mmol/l (3.5-5.1); TOTAL PROTEIN 8.5 g/dL (6.3-8.2)
[2024-02-10] MEDS ORDERED: CLINDAMYCIN HY300 MG PO (18:19)
== END 2024-02-10 18:57 | disposition home or self-care (01) | DRG 638 ==
LOC: ED 15:54
PROVIDERS: Family Medicine
DX: E11.621 Type 2 diabetes mellitus with foot ulcer (principal); Z59.02 Unsheltered homelessness; L97.529 Non-pressure chronic ulcer of other part of left foot with unspecified severity; L03.032 Cellulitis of left toe; L03.031 Cellulitis of right toe; I10 Essential (primary) hypertension; E11.40 Type 2 diabetes mellitus with diabetic neuropathy, unspecified; K74.60 Unspecified cirrhosis of liver; M10.9 Gout, unspecified; Z72.0 Tobacco use; Z89.422 Acquired absence of other left toe(s); T38.3X6A Underdosing of insulin and oral hypoglycemic [antidiabetic] drugs, initial encounter; Z91.120 Patient's intentional underdosing of medication regimen due to financial hardship; Z89.421 Acquired absence of other right toe(s)
CPT/HCPCS: J0736

== ENCOUNTER 2024-02-22 19:34 | Emergency (ER) | payer OTHER ==
[~2024-02-22] VITALS: Ht 167.6 cm; Wt 102.0 kg
[~2024-02-22 19:34] MED LIST changes: +CLINDAMYCIN HY300 MG PO
[2024-02-22] MEDS ORDERED: LORazepam 2 MG/ML IV ONE (19:45)
[2024-02-22 20:26] LABS: BASO% 1.4 % (0-3); EOS% 4.5 % (0-8); HEMATOCRIT 37.2 % (37.0-47.0); HEMOGLOBIN 11.9 g/dl (12.0-16.0); IMMATURE GRANULOCYTES 0.1 % (0.0-5.0); LYMPH% 29.8 % (15-41); MEAN CELL VOLUME 95.1 fL CALC (80.0-100.0); MEAN CORPUSCULAR HGB 30.4 pG CALC (26.0-32.0); MONO% 7.8 % (2-13); NEUT# 5.82 thou/uL (2.00-7.15); NEUT% 56.4 % (42-76); RED BLOOD COUNT 3.91 mill/uL (4.20-5.60); RED CELL DISTRI WIDTH 14.3 % (11.5-15.5)
[2024-02-22 20:45] LABS: ALBUMIN 4.6 g/dL (3.2-5.0); ALKALINE PHOSPHATASE 85 u/l (38-126); ANION GAP 16 (6-22 (CALC)); BILIRUBIN, TOTAL 1.4 mg/dL (0.02-1.3); BUN 17 mg/dL (7-17); BUN/CREATININE RATIO 22 (12-20 (CALC)); CARBON DIOXIDE 18 mmol/l (22-30); CHLORIDE 110 mmol/l (95-108); CREATININE 0.8 mg/dL (0.5-1.0); ESTIMATED GFR 89 ML/MIN (>=90 (CALC)); LIPASE 170 u/l (23-300); SGOT/AST 37 u/l (14-36); SODIUM 140 mmol/l (137-146); TOTAL PROTEIN 9.1 g/dL (6.3-8.2)
[2024-02-22 20:52] LABS: INTERNATIONAL NORMALIZED RATIO 1.6 RATIO (0.7-1.3)
[2024-02-22 21:00] LABS: D-DIMER 3.91 mg/L (0.19-0.60)
[2024-02-22 23:00] VITALS: BP 151/108
[2024-02-22 23:16] VITALS: BP 154/103
[2024-02-23 07:04] VITALS: BP 154/103
== END 2024-02-23 06:45 | disposition home or self-care (01) ==
LOC: ED 19:34
PROVIDERS: Family Medicine
DX: F10.10 Alcohol abuse, uncomplicated (principal); F41.9 Anxiety disorder, unspecified; K74.60 Unspecified cirrhosis of liver; R18.8 Other ascites; I10 Essential (primary) hypertension; E11.40 Type 2 diabetes mellitus with diabetic neuropathy, unspecified; I45.2 Bifascicular block; M10.9 Gout, unspecified; Z72.0 Tobacco use
CPT/HCPCS: J2060; Q9967

== ENCOUNTER 2024-03-01 03:25 | Emergency (ER) | payer BC, OTHER ==
[~2024-03-01] VITALS: Ht 167.6 cm; Wt 95.0 kg
[2024-03-01] VITALS (8 sets, daily range): BP systolic 115–156; BP diastolic 94–123
[2024-03-01] MEDS ORDERED: ACETAMINOPHEN 500 MG TAB PO ONE (03:35)
[2024-03-01] MEDS ORDERED: KETOROLAC TROMETHAMINE 30 MG/ML SDV IV ONE (03:35)
[2024-03-01] MEDS ORDERED: ASPIRIN 81 MG/TAB PO ONE (03:35)
[2024-03-01] MEDS ORDERED: NITROGLYCERIN 2% OINT UD 1 GM/PAK TD ONE (03:35)
[2024-03-01 03:44] LABS: BASO% 0.6 % (0-3); EOS% 6.9 % (0-8); HEMOGLOBIN 12.2 g/dl (12.0-16.0); IMMATURE GRANULOCYTES 0.1 % (0.0-5.0); LYMPH% 22.7 % (15-41); MEAN CELL VOLUME 98.3 fL CALC (80.0-100.0); MEAN CORPUSCULAR HGB CONC 30.5 g/dL CAL (32.0-36.0); MONO% 6.6 % (2-13); NEUT# 5.38 thou/uL (2.00-7.15); NEUT% 63.1 % (42-76); RED BLOOD COUNT 4.07 mill/uL (4.20-5.60)
[2024-03-01 03:54] LABS: ALBUMIN 4.2 g/dL (3.2-5.0); BILIRUBIN, TOTAL 1.3 mg/dL (0.02-1.3); BUN 18 mg/dL (7-17); BUN/CREATININE RATIO 24 (12-20 (CALC)); CHLORIDE 111 mmol/l (95-108); CREATININE 0.8 mg/dL (0.5-1.0); ESTIMATED GFR 89 ML/MIN (>=90 (CALC)); ETHYL ALCOHOL 0 mg/dl (0-30); LIPASE 200 u/l (23-300); MAGNESIUM 1.8 mg/dL (1.6-2.3); POTASSIUM 3.3 mmol/l (3.5-5.1); SGOT/AST 57 u/l (14-36); SODIUM 141 mmol/l (137-146); TOTAL PROTEIN 8.4 g/dL (6.3-8.2)
[2024-03-01] MEDS ORDERED: GABAPENTIN 300 MG/CAP PO ONE (03:55)
[2024-03-01 03:57] LABS: INTERNATIONAL NORMALIZED RATIO 1.4 RATIO (0.7-1.3)
[2024-03-01 03:58] LABS: ALKALINE PHOSPHATASE 129 u/l (38-126); ANION GAP 11 (6-22 (CALC)); CARBON DIOXIDE 22 mmol/l (22-30); PROTHROMBIN TIME 13.2 SECONDS (9.0-12.5)
[2024-03-01 04:06] LABS: D-DIMER 4.26 mg/L (0.19-0.60)
[2024-03-01 04:58] LABS: URINE BILIRUBIN - DIPSTICK Negative (NEGATIVE); URINE BLOOD DIPSTICK Negative (NEGATIVE); URINE COLOR Yellow; URINE GLUCOSE - DIPSTICK Negative (NEGATIVE); URINE KETONE Negative (NEGATIVE); URINE LEUK ESTERASE Negative (NEGATIVE); URINE NITRITE - DIPSTICK Negative (Negative); URINE PH 5.5 (4.5-8.0); URINE PROTEIN - DIPSTICK 100 mg/dL (NEG-TRACE); URINE SPECIFIC GRAVITY >=1.030
[2024-03-01 05:05] LABS: URINE BACTERIA FEW hpf; URINE EPITHELIAL CELLS FEW EPI/hpf (0-FEW); URINE FINE GRAN CAST FEW lpf; URINE HYALINE CAST FEW lpf (NONE-RARE); URINE MUCUS FEW hpf (NONE-FEW); URINE RBC 0-2 RBC/hpf (0-5)
[2024-03-01] MEDS ORDERED: rOPINIRole Hydrochloride 0.5 MG/TAB PO ONE (05:35)
[2024-03-01] MEDS ORDERED: NEOMYCIN-BACITRACIN-POLYMYXIN 0.5 GM/PAK PAK TOP ONE (05:35)
[2024-03-01] MEDS ORDERED: GABAPENTIN800 MG PO (05:36)
== END 2024-03-01 05:50 | disposition home or self-care (01) | DRG 313 ==
LOC: ED 03:25
PROVIDERS: Family Medicine
DX: R07.89 Other chest pain (principal); E11.42 Type 2 diabetes mellitus with diabetic polyneuropathy; F15.10 Other stimulant abuse, uncomplicated; F19.10 Other psychoactive substance abuse, uncomplicated; F41.9 Anxiety disorder, unspecified; I10 Essential (primary) hypertension; K74.60 Unspecified cirrhosis of liver; K75.81 Nonalcoholic steatohepatitis (NASH)

== ENCOUNTER 2024-03-05 09:19 | Inpatient (IN) | payer BC, OTHER ==
[~2024-03-05] VITALS: Ht 167.6 cm; Wt 100.1 kg
[2024-03-05] VITALS (12 sets, daily range): BP systolic 123–177; BP diastolic 82–122
[~2024-03-05 09:19] MED LIST changes: +GABAPENTIN800 MG PO
--- NOTE | 2024-03-05 09:22 | NUR ---
PT BROUGHT BACK TO ER ROOM 2 VIA WHEELCHAIR
[2024-03-05 10:05] LABS: BASO% 0.7 % (0-3); EOS% 6.8 % (0-8); HEMATOCRIT 42.7 % (37.0-47.0); HEMOGLOBIN 13.1 g/dl (12.0-16.0); IMMATURE GRANULOCYTES 0.5 % (0.0-5.0); LYMPH% 21.9 % (15-41); MEAN CELL VOLUME 96.8 fL CALC (80.0-100.0); MEAN CORPUSCULAR HGB 29.7 pG CALC (26.0-32.0); MEAN CORPUSCULAR HGB CONC 30.7 g/dL CAL (32.0-36.0); MONO% 7.4 % (2-13); NEUT# 5.75 thou/uL (2.00-7.15); NEUT% 62.7 % (42-76); RED BLOOD COUNT 4.41 mill/uL (4.20-5.60); RED CELL DISTRI WIDTH 15.1 % (11.5-15.5)
[2024-03-05 10:25] LABS: ALBUMIN 4.4 g/dL (3.2-5.0); ALKALINE PHOSPHATASE 136 u/l (38-126); ANION GAP 12 (6-22 (CALC)); BILIRUBIN, TOTAL 1.7 mg/dL (0.02-1.3); BUN 15 mg/dL (7-17); BUN/CREATININE RATIO 21 (12-20 (CALC)); CARBON DIOXIDE 21 mmol/l (22-30); CHLORIDE 107 mmol/l (95-108); CREATININE 0.7 mg/dL (0.5-1.0); ESTIMATED GFR 105 ML/MIN (>=90 (CALC)); SGOT/AST 40 u/l (14-36); SODIUM 136 mmol/l (137-146); TOTAL PROTEIN 8.8 g/dL (6.3-8.2)
[2024-03-05] MEDS ORDERED: ONDANSETRON HCl 4 MG/2 ML SDV IV ONE (10:35)
[2024-03-05 10:44] LABS: POTASSIUM 4.1 mmol/l (3.5-5.1)
[2024-03-05 10:56] LABS: MAGNESIUM 1.9 mg/dL (1.6-2.3); TSH, 3RD GENERATION 9.19 uIU/mL (0.47 - 4.68)
[2024-03-05 11:52] LABS: URINE BILIRUBIN - DIPSTICK Negative (NEGATIVE); URINE BLOOD DIPSTICK Negative (NEGATIVE); URINE GLUCOSE - DIPSTICK Negative (NEGATIVE); URINE KETONE Negative (NEGATIVE); URINE LEUK ESTERASE Negative (NEGATIVE); URINE NITRITE - DIPSTICK Negative (Negative); URINE PH 5.5 (4.5-8.0); URINE PROTEIN - DIPSTICK 100 mg/dL (NEG-TRACE); URINE SPECIFIC GRAVITY >=1.030
[2024-03-05 11:56] LABS: URINE COLOR Yellow
[2024-03-05 11:57] LABS: URINE EPITHELIAL CELLS MODERATE EPI/hpf (0-FEW)
[2024-03-05] MEDS ORDERED: PIPERACILLIN Sodium-Tazobactam 3.375 GM in SODIUM CHLORIDE 0.9% 100 ML IV ONE (12:15)
[2024-03-05] MEDS ORDERED: VANCOMYCIN HCL 1 GM in SODIUM CHLORIDE 0.9% 250 ML IV ONE (12:15)
[2024-03-05] MEDS ORDERED: hydrALAZINE HCL 20 MG/ML VIAL(1 ML) IV ONE (12:20)
[2024-03-05] MEDS ORDERED: ACETAMINOPHEN 325 MG/TAB PO PRN (12:20)
[2024-03-05] MEDS ORDERED: MAGNESIUM HYDROXIDE 30 ML UDC PO PRN (12:20)
[2024-03-05] MEDS ORDERED: VANCOMYCIN HCL 1 GM/VIAL IV ONE (12:22)
[2024-03-05] MEDS ORDERED: hydrALAZINE HCL 20 MG/ML VIAL(1 ML) IV PRN (12:25)
[2024-03-05] MEDS ORDERED: ONDANSETRON HCl 4 MG/2 ML SDV IV PRN (12:25)
[2024-03-05] MEDS ORDERED: FUROSEMIDE 40 MG/4 ML SDV IV ONE ×2 (12:35)
--- NOTE | 2024-03-05 13:28 | NUR ---
S: SHARON YAP is a 53 F who presents with cellulitis. All medications in patient's chart were reviewed. O: VS: BP 164/89 mmhg, P 88 bpm, RR 19 bpm,T 98.9 F W 117 kg, HT 66 in, Scr= 0.7 mg/dL, CrCl= 117 ml/min> A: Blood culture is pending. P: Patient is on ceftriaxone 2gm IV Q24H. Vancomycin ordered for pharmacy to dose. Start Vancomycin 1,000mg IV Q12H. Vancomycin trough is drawn before the 4th dose on 03/07/24 @0030. Vancomycin goal trough is between 10-15 mcg/ml. Pharmacy will follow and or advise on antibiotics use as needed.
--- NOTE | 2024-03-05 13:31 | NUR ---
PT WALKED TO THE BATHROOM, PT BACK IN BED, CALL LIGHT WITHIN REACH, PT DENIES ANY NEEDS
--- NOTE | 2024-03-05 13:51 | NUR ---
report given by er nurse
[2024-03-05] MEDS ORDERED: LOSARTAN Potassium 50 MG/TAB PO SCH (14:00)
--- NOTE | 2024-03-05 14:05 | NUR ---
PATIENT ARRIVED AT 1405. ORIENTED TO ROOM, CALL LIGHT, AND BED. FALL AND SAFTEY PRECAUTIONS IN PLACE. PLAN OF CARE DISCUSSED. PATIENT INFORMED TO CALL WITH ANY QUESTIONS OR CONCERNS
--- NOTE | 2024-03-05 14:10 | NUR ---
PT REPORT TO BONNIE MOORE. PT TRANSPORTED VIA WC TO ROOM 277. VSS. TRANSFERRED CARE OF PT.
[2024-03-05] MEDS ORDERED: LORazepam 0.5 MG/TAB PO PRN (14:55)
[2024-03-05] MEDS ORDERED: FUROSEMIDE 40 MG/4 ML SDV IV SCH (17:00)
[2024-03-05] MEDS ORDERED: cefTRIAXone SODIUM 2 GM in SODIUM CHLORIDE 0.9% 100 ML IV SCH (18:00)
[2024-03-05] MEDS ORDERED: GABAPENTIN 300 MG/CAP PO SCH (19:00)
[2024-03-05] MEDS ORDERED: GABAPENTIN 100 MG/CAP PO SCH (19:00)
--- NOTE | 2024-03-05 19:15 | NUR ---
PATIENT IN ROON RESTING IN BED WATCHING TV. PATIENT IS A&O. BED SIDE ASSESSMENT COMPLETE. PATIENT OBSERVED TO BE ANXIOUS AND HYPERVENTILATING . PATIENT IS COMPLAINING OF RESTLESS LEG SYNDROME. PATIENT HAS CLEAR LUNG SOUNDS. ABDOMEN IS SOFT AND DISTENDED. PATIENT OBSERVED TO HAVE BILATERAL LOWER LEG EDEMA. ULCER TO LEFT GREAT TOE, RIGHT FOOT HAS AMPUTATED 3RD AND 4TH TOE WITH SOME SUTURES IN PLACE. BED AT LOWEST POSITION. CALL LIGHT WITH IN REACH.
[2024-03-05] MEDS ORDERED: ENOXAPARIN SODIUM 40 MG/0.4 ML SYR SC SCH (21:00)
--- NOTE | 2024-03-05 21:46 | NUR ---
CLINICAL FIELD SPECIALIST PREOVIDER NOTIFIED. UPDATED ON PATIENT STATUS. PATIENT OBSERVED TO HAVE ANXIETY AND MENTIONED SHE HAS RESTLESS LEG SYNDROME AND TAKES ROPINIROLE WHEN FLARE UPS OCCUR. SEE EMAR FOR NEW ORDERS.
[2024-03-05] MEDS ORDERED: LORazepam 2 MG/ML IV ONE (21:55)
[2024-03-05] MEDS ORDERED: LORazepam 2 MG/ML IV PRN (22:00)
[2024-03-05] MEDS ORDERED: rOPINIRole Hydrochloride 0.5 MG/TAB PO SCH (22:00)
[2024-03-06] VITALS (8 sets, daily range): BP systolic 123–157; BP diastolic 77–128
--- NOTE | 2024-03-06 00:26 | NUR ---
PATIENT IN BED RESTING WITH EYES CLOSED ON RIGHT SIDE. EQUAL UNLABORED BREATHING OBSERVED. NO VISUAL SIGNS OF DISTRESS. BED AT LOWEST POSITION. CALL LIGHT WITH IN REACH.
[2024-03-06] MEDS ORDERED: VANCOMYCIN HCL 1 GM in SODIUM CHLORIDE 0.9% 250 ML IV SCH (01:00)
--- NOTE | 2024-03-06 04:28 | NUR ---
PATIENT IN BED RESTING ON RIGHT SIDE WITH EYES CLOSED. PATIENT HAS EQUAL UNLABORD BREATHING. NO VISUAL SIGNS OF DISTRESS. BED AT LOWEST POSITION. CALL LIGHT WITH IN REACH.
[2024-03-06 05:13] LABS: BASO% 0.6 % (0-3); EOS% 9.1 % (0-8); HEMATOCRIT 43.4 % (37.0-47.0); HEMOGLOBIN 13.2 g/dl (12.0-16.0); IMMATURE GRANULOCYTES 0.1 % (0.0-5.0); LYMPH% 16.6 % (15-41); MEAN CELL VOLUME 99.3 fL CALC (80.0-100.0); MEAN CORPUSCULAR HGB 30.2 pG CALC (26.0-32.0); MEAN CORPUSCULAR HGB CONC 30.4 g/dL CAL (32.0-36.0); MONO% 9.6 % (2-13); NEUT# 6.22 thou/uL (2.00-7.15); RED BLOOD COUNT 4.37 mill/uL (4.20-5.60); RED CELL DISTRI WIDTH 15.1 % (11.5-15.5)
[2024-03-06 05:46] LABS: ALBUMIN 3.8 g/dL (3.2-5.0); BILIRUBIN, TOTAL 1.1 mg/dL (0.02-1.3); CHOLESTEROL HDL RATIO 3.9 (<4.4 (CALC)); CREATININE 0.7 mg/dL (0.5-1.0); MAGNESIUM 1.9 mg/dL (1.6-2.3); POTASSIUM 3.8 mmol/l (3.5-5.1); TOTAL PROTEIN 7.9 g/dL (6.3-8.2)
[2024-03-06] MEDS ORDERED: LEVOTHYROXINE SODIUM 50 MCG/TAB PO SCH (06:00)
[2024-03-06] MEDS ORDERED: ROPINIROLE2 MG PO (07:36)
--- NOTE | 2024-03-06 08:02 | NUR ---
NURSE TO NURSE REPORT. PT IS RESTING WITH EYES CLOSE. PLAN OF CARE IS ONGOING.
[2024-03-06] MEDS ORDERED: SPIRONOLACTONE 25 MG/TAB PO SCH (09:00)
[2024-03-06] MEDS ORDERED: DEXTROSE 250 ML IV PRN (10:40)
[2024-03-06] MEDS ORDERED: INSULIN LISPRO 100 UNITS/ML ML SC SCH (11:00)
[2024-03-06] MEDS ORDERED: CEFEPIME HYDROCHLORIDE 2 GM in SODIUM CHLORIDE 0.9% 100 ML IV SCH (12:00)
--- NOTE | 2024-03-06 16:00 | NUR ---
Pt is a&ox4 able to make her needs known. pt denies pain and show no sign of distress. meds was given per mar order. educated pt on the plan of care. call light and personal item with in reach. safety measure are in place. plan of care is ongoing.
--- NOTE | 2024-03-06 20:00 | NUR ---
RECEIVED REPORT FROM KOBE, PATIENT ALERT ORIENTED, ABLE TO MAKE NEEDS KNOWN, AMBULATORY, SALINE LOCK NOTED ON LAC PATENT FLUSHES WELL, ON TELEMETRY PATIENT DISTENDED ABDOMEN ACTIVE BOWEL SOUNDS, LBM 03/05, WOUND ON RT FOOT 2ND TOE AND 3RD TOE AMPUATION STILL WITH SUTURE, SCAB NOTED ON LEFT FOOT BIG TOE AND 2ND TOE, PATINET NOT IN DISTRESS, CALL LIGHT IN REACHED.
[2024-03-07] VITALS (9 sets, daily range): BP systolic 118–155; BP diastolic 70–106
--- NOTE | 2024-03-07 | NUR ---
PATIENT NOT IN DISTRESS, BREATHING UNLABORED, NO DISCOMFORTS NOTED AT THIS TIME. CALL LIGHT WITHIN REACHED.
--- NOTE | 2024-03-07 04:54 | NUR ---
PATIENT AWAKE, NOT IN DSITRESS, ASK CRACKERS, MARVIN CRACKERS PROVIDED, PATINET NOT IN DISTRESS, CALL LIGHT IN REACHED.
[2024-03-07 06:25] LABS: BASO% 0.5 % (0-3); EOS% 10.2 % (0-8); HEMATOCRIT 38.8 % (37.0-47.0); HEMOGLOBIN 11.9 g/dl (12.0-16.0); IMMATURE GRANULOCYTES 0.7 % (0.0-5.0); LYMPH% 24.3 % (15-41); MEAN CELL VOLUME 97.5 fL CALC (80.0-100.0); MEAN CORPUSCULAR HGB 29.9 pG CALC (26.0-32.0); MEAN CORPUSCULAR HGB CONC 30.7 g/dL CAL (32.0-36.0); MONO% 10.5 % (2-13); NEUT# 4.06 thou/uL (2.00-7.15); NEUT% 53.8 % (42-76); RED BLOOD COUNT 3.98 mill/uL (4.20-5.60); RED CELL DISTRI WIDTH 15.2 % (11.5-15.5)
[2024-03-07 06:44] LABS: ALBUMIN 3.5 g/dL (3.2-5.0); BILIRUBIN, TOTAL 0.9 mg/dL (0.02-1.3); CREATININE 0.7 mg/dL (0.5-1.0); MAGNESIUM 1.7 mg/dL (1.6-2.3); POTASSIUM 3.6 mmol/l (3.5-5.1); TOTAL PROTEIN 7.2 g/dL (6.3-8.2)
--- NOTE | 2024-03-07 08:40 | NUR ---
Patient resting in bed; iv site clean and intact saline locked; when talked to denied any pain; denied any n/d/v at this time; tele intact; no s/s of distress at this time; denied needing anything at this time; call light within reach,verablized understanding on how to use, glucose was 100, no coverage needed; personal items within reach,bed in lowest postion; no complaints
--- NOTE | 2024-03-07 10:52 | NUR ---
S: SHARON YAP is a 53 F who presents with cellulitis. She has a history of diabetes, hypertension, CAD, gout, neuropathy cirrhosis stage IV, substance abuse. All medications in patient's chart were reviewed. O: VS: BP134/84 mmHg , P 90 bpm, RR 19 breaths/min, T 97.3 F. W 116.6 kg HT 66in, SCr= 0.7 mg/dL, CrCl= 123.7 ml/min. Vancomycin trough 03/07@0030 = 8 A: Blood culture shows no growth within 48 hours. Body fluid culture is pending. Vancomycin trough level is subtherapeutic. Increase in dose is warranted. P: Patient is on Cefepime HCl 2gm IV q8h and vancomyin 1 g IV q12h. Vancomycin ordered for pharmacy to dose. Increase Vancomycin to 1,250mg IV Q12H. Vancomycin trough is drawn before the dose on 0030 on 03/09. Vancomycin goal trough is between 10-15 mcg/ml. Pharmacy will follow and or advise on antibiotics use as needed.
[2024-03-07] MEDS ORDERED: CEFEPIME HYDROCHLORIDE 2 GM in SODIUM CHLORIDE 0.9% 100 ML IV SCH (12:00)
--- NOTE | 2024-03-07 12:29 | NUR ---
patient resting in bed; room air; breathing unlabored and even; iv site clean and intact saline locked; no s/s of distress at this time; declined lunch at ths time; call light within reach,verbalized understanding on how to use, personal items within reach,bed in lowest postion,no complaints
[2024-03-07] MEDS ORDERED: VANCOMYCIN HCL 1,250 MG in SODIUM CHLORIDE 0.9% 225 ML IV SCH (13:00)
[2024-03-07] MEDS ORDERED: GABAPENTIN 300 MG/CAP PO SCH (15:00)
[2024-03-07] MEDS ORDERED: GABAPENTIN 100 MG/CAP PO SCH (15:00)
--- NOTE | 2024-03-07 16:45 | NUR ---
patient a/o x3; room air; watching tv semi goodwin in bed; denied any pain; denied any n/d/v at this time; iv site clean and intact salin elocked with no issues; denied needing anything; no s/s of distress at this time; no complaints; call light within reach,verbalized understanding on how to use, personal items within reach, glucose was 118, no coverage needed; personal items within reach, bed in lowest postion
[2024-03-07] MEDS ORDERED: metFORMIN HYDROCHLORIDE 500 MG/TAB PO SCH (17:30)
--- NOTE | 2024-03-07 20:00 | NUR ---
BEDSIDE SHIFT REPORT COMPLETED. RESP EVEN AND UNLABORED. DENIES CURRENT NEEDS. CALL LIGHT IN REACH. ABLE TO MAKE NEEDS KNOWN.
[2024-03-08] VITALS (8 sets, daily range): BP systolic 109–133; BP diastolic 61–92
--- NOTE | 2024-03-08 | NUR ---
STATED IV IN LEFT FOREARM WAS PAINFUL. BURNED WHEN FLUSHED. IV SITE REMOVED. NO S/S OF INFECTION NOTED. SITE SLIGHTLY RED. INSERTED 20G INTO RIGHT FOREARM WITH ONE ATTEMPT. GOOD RESULTS FROM ATIVAN GIVEN AT BEDTIME FOR ANXIETY. RESTING IN BED, RELAXED. CALL LIGHT IN REACH.
--- NOTE | 2024-03-08 04:00 | NUR ---
RESTING IN BED, REQUESTED SNACK. GAVE SHERBET AND CRACKERS REQUESTED. CALL LIGHT IN REACH. TOLERATED IV ABTS WELL. NO C/O PAIN OR DISCOMFORT AT NEW IV SITE.
[2024-03-08 05:44] LABS: BASO% 0.7 % (0-3); EOS% 8.9 % (0-8); HEMATOCRIT 38.4 % (37.0-47.0); HEMOGLOBIN 11.7 g/dl (12.0-16.0); IMMATURE GRANULOCYTES 0.3 % (0.0-5.0); LYMPH% 26.4 % (15-41); MEAN CELL VOLUME 98.2 fL CALC (80.0-100.0); MEAN CORPUSCULAR HGB 29.9 pG CALC (26.0-32.0); MEAN CORPUSCULAR HGB CONC 30.5 g/dL CAL (32.0-36.0); MONO% 9.7 % (2-13); NEUT# 3.96 thou/uL (2.00-7.15); RED BLOOD COUNT 3.91 mill/uL (4.20-5.60); RED CELL DISTRI WIDTH 15.4 % (11.5-15.5)
[2024-03-08 06:13] LABS: ALBUMIN 3.4 g/dL (3.2-5.0); BILIRUBIN, TOTAL 1.1 mg/dL (0.02-1.3); CREATININE 0.7 mg/dL (0.5-1.0); MAGNESIUM 1.6 mg/dL (1.6-2.3); POTASSIUM 3.6 mmol/l (3.5-5.1)
--- NOTE | 2024-03-08 07:57 | NUR ---
PT RESTING IN BED WATCHING TV. ASSESSMENT COMPLETED. ABD DISTENDED SOFT/ NON TENDER. RESPIRATIONS ARE EVEN AND UNLABORED. IV INTACT/FLUSHED. LEFT FOOT +1 EDEMA WITH WOUND TO THE LEFT BIG TOE. RIGHT TOE +1 EDEMA WARM TO TOUCH REDNESS. SUTURES IN PLACE FROM PRIOR AMPUATION 02/04/24 ON THIRD TOE. PT ABLE TO RAISE4 LEGS BILATERALLY. PEDAL PULSES PALPABLE BILATERALLY. TELE BOX #[address] CONTINOUS MONITORING PER ED. FEET ELEVATED ON PILLOW. FALL/SAFTEY PRECAUTION IN [PLACE. CALL LIGHT WITHIN REACH.
--- NOTE | 2024-03-08 11:13 | NUR ---
PT VERBALIZED NAUSEA, MEDICATED SEE EMAR.
--- NOTE | 2024-03-08 12:41 | NUR ---
PT VERBALIZED NAUSEA MEDICATION EFFECTIVE. LEGS ELEVATED. IV INTACT/FLUSHED. FALL/SAFTEY PRECAUTION IN PLACE. CALL LIGHT WITHIN REACH
[2024-03-08] MEDS ORDERED: HYDROcodone 5 MG/Acetaminophen 325 MG/COMBO PO PRN (13:40)
--- NOTE | 2024-03-08 17:50 | NUR ---
PICTURES OBTAINED OF FEET BILATERALLY. SEE CHART. PT VERBALIZED PAIN CONTROLLED WITH PAIN MED GIVEN PRIOR. IV INTACT/FLUSHED. PT VOICED NAUSEA MEDICATED SEE EMAR. FALL/SAFTEY PRECAUTION IN PLACE. CALL LIGHT WITHIN REACH
--- NOTE | 2024-03-08 19:40 | NUR ---
BEDSIDE SHIFT REPORT COMPLETED. LAYING IN BED. WATCHING TV. DENIES NEEDS AT CURRENT TIME.
[2024-03-08] MEDS ORDERED: SODIUM CHLORIDE 0.9% 500 ML IV ONE (20:32)
--- NOTE | 2024-03-08 22:00 | NUR ---
SPOKE WITH PATIENT ABOUT THE PLAN FORM SURGERY IN AM. PATIENT STATED SHE HAS NOT SPOKEN TO THE FOOT SURGEON SINCE SHE HAS BEEN ADMITTED AND SHE DOES NOT WANT TO SIGN ANY CONSENTS UNTIL SHE HAS SPOKEN WITH HIM. PATIENT BECAME VERY UPSET AND BEGAN TO CRY STATING SHE IS NERVOUS BECAUSE HE IS WANTING TO DO SURGERY WHEN HE HASNT EVEN BEEN IN TO SEE HER FEET. ATIVAN GIVEN PER REQUEST FOR ANXIETY. LORTAB GIVEN FOR C/O PAIN IN BOTH FEET AND TOES.
[2024-03-09] VITALS (10 sets, daily range): BP systolic 113–127; BP diastolic 63–80
--- NOTE | 2024-03-09 00:56 | NUR ---
VANCO TROUGH COMPLETED. WITHIN NORMAL LIMITS, VANCO GIVEN ORDERED. EDUCATED ON NPO FOR POSSIBLE SURGICAL PROCEDURE IN AM. VOICED UNDERSTANDING.
[2024-03-09 05:11] LABS: BASO% 0.8 % (0-3); EOS% 12.3 % (0-8); HEMATOCRIT 36.1 % (37.0-47.0); HEMOGLOBIN 11.3 g/dl (12.0-16.0); IMMATURE GRANULOCYTES 0.2 % (0.0-5.0); LYMPH% 32.1 % (15-41); MEAN CELL VOLUME 98.6 fL CALC (80.0-100.0); MEAN CORPUSCULAR HGB 30.9 pG CALC (26.0-32.0); MEAN CORPUSCULAR HGB CONC 31.3 g/dL CAL (32.0-36.0); MONO% 10.2 % (2-13); NEUT# 2.75 thou/uL (2.00-7.15); NEUT% 44.4 % (42-76); RED BLOOD COUNT 3.66 mill/uL (4.20-5.60); RED CELL DISTRI WIDTH 15.3 % (11.5-15.5)
[2024-03-09 05:14] LABS: ALBUMIN 3.4 g/dL (3.2-5.0); BILIRUBIN, TOTAL 0.9 mg/dL (0.02-1.3); CREATININE 0.6 mg/dL (0.5-1.0); MAGNESIUM 1.6 mg/dL (1.6-2.3); POTASSIUM 3.8 mmol/l (3.5-5.1); TOTAL PROTEIN 6.9 g/dL (6.3-8.2)
--- NOTE | 2024-03-09 07:00 | NUR ---
DR. RIOS IN AND SAW PATIENT. GAVE VERBAL ORDERS TO CANCEL SURGERY, AND GAVE DRESSING ORDERS FOR THE RIGHT FOOT. DIETARY NOTIFIED OF DIET CHANGE ORDERS. TOLERATING IV ABTS.
--- NOTE | 2024-03-09 08:00 | NUR ---
PT IS LAYING IN BED WITH EYES CLOSED. NO APPARENT DISTRESS NOTED. WHEEL LOCKED AND BED LOW. WILL CONTINUE TO MONITOR FOR SAFETY.
--- NOTE | 2024-03-09 08:51 | NUR ---
S: SHARON YAP is a 53 F who presents with Cellulitis. She has a history of Diabetes with neuropathy, hypertension, gout, cirrhosis of the liver stage IV realted to ALVARADO. All medications in patient's chart were reviewed. O: VS: BP:113/76 mmHg, P: 83 bpm, RR:20 breaths/min, T: 97F W: 109.8 kg, HT: 66 inches, Scr=0.6 mg/dL, CrCl= 139.2 ml/min Vancomycin trough 03/09@0030 = 16 A: Blood culture is pending. Pts trough level is above therapeutic goal. Decrease in vancomycin dose is warranted. P: Patient is on Cefepime IV 2gm Q8H and vancomycin 1250 mg IV q12h. Vancomycin ordered for pharmacy to dose. Decrease Vancomycin to 1g IV Q12H. Vancomycin trough is drawn before the 4th dose on 03/11 at 0130. Vancomycin goal trough is between 10-15 mcg/ml. Pharmacy will follow and or advise on antibiotics use as needed.
--- NOTE | 2024-03-09 12:10 | NUR ---
PT IS LAYING IN BED WATCHING TV AND EATING ICE. SHE HAS HER RIGHT FOOT ELEVATED ABOVE THE LEVEL OF HER HEART FOR COMFORT. PT HAS BILATERAL EDEMA IN LOWER EXTREMITIES WELL PALPABLE PEDAL PULSES. PT IS COMPLIANT WITH MEDICATION DURING SHIFT. NO PAIN AT THIS MOMENT
[2024-03-09] MEDS ORDERED: DAPTOMYCIN/SODI1 IN2 IV (13:32)
[2024-03-09] MEDS ORDERED: METRONIDAZOLE500 MG PO (13:32)
[2024-03-09] MEDS ORDERED: CEFEPIME2 GM IV (13:32)
[2024-03-09] MEDS ORDERED: VANCOMYCIN HCL 1 GM in SODIUM CHLORIDE 0.9% 250 ML IV SCH (14:00)
--- NOTE | 2024-03-09 18:17 | NUR ---
PT IS SITTING IN BED WATCHING TV. NO COMPLAINTS AT THIS TIME AND SAFETY PRIORITY WITH BED IN LOW POSITION AND CALL LIGHT IN REACH
--- NOTE | 2024-03-09 19:40 | NUR ---
awake. medicated for pain as requested. saline lock in place. po fluids taken well. voids per bathroom.
--- NOTE | 2024-03-10 00:01 | NUR ---
telemtry report rec'd per er us sr icvd hr 95
--- NOTE | 2024-03-10 04:00 | NUR ---
telemetry report shows sinus rhythm ivcd hr 92.
[2024-03-10 04:54] VITALS: BP 100/59
[2024-03-10 05:40] LABS: EOS% 11.6 % (0-8); HEMATOCRIT 37.3 % (37.0-47.0); HEMOGLOBIN 11.5 g/dl (12.0-16.0); IMMATURE GRANULOCYTES 0.2 % (0.0-5.0); LYMPH% 34.6 % (15-41); MEAN CELL VOLUME 98.4 fL CALC (80.0-100.0); MEAN CORPUSCULAR HGB 30.3 pG CALC (26.0-32.0); MEAN CORPUSCULAR HGB CONC 30.8 g/dL CAL (32.0-36.0); MONO% 10.3 % (2-13); NEUT# 2.55 thou/uL (2.00-7.15); NEUT% 42.3 % (42-76); RED BLOOD COUNT 3.79 mill/uL (4.20-5.60); RED CELL DISTRI WIDTH 15.5 % (11.5-15.5)
[2024-03-10 05:52] LABS: ALBUMIN 3.5 g/dL (3.2-5.0); BILIRUBIN, TOTAL 0.6 mg/dL (0.02-1.3); CREATININE 0.6 mg/dL (0.5-1.0); MAGNESIUM 1.6 mg/dL (1.6-2.3); POTASSIUM 4.3 mmol/l (3.5-5.1); TOTAL PROTEIN 7.2 g/dL (6.3-8.2)
[2024-03-10 07:26] VITALS: BP 116/86
--- NOTE | 2024-03-10 08:00 | NUR ---
PT IS SITTING IN BED WITH NO DISTRESS AT THIS TIME. CALL LIGHT IS LAYING ON BED BESIDE PT FOR SAFETY. PT DENIES PAIN AT THIS TIME. BANDAGE IS OFF HER RIGHT FOOT AND PT STATES " I REMOVED IT LAST NIGHT BECAUSE I JUST COULDNT TAKE IT ANYMORE, WITH MY NEUROPATHY IF WAS DRIVING ME CRAZY." PT UPDATED ON PLAN OF CARE FOR TODAY AND VERBALIZES UNDERSTANDING.
[2024-03-10] MEDS ORDERED: VANCOMYCIN HYDRO1 GM IV (09:04)
[2024-03-10] MEDS ORDERED: CIPROFLOXACN500 MG PO (09:04)
[2024-03-10 10:55] VITALS: BP 144/94
[2024-03-10] MEDS ORDERED: SILVER SULFADIAZINE 400 GM JAR TOP SCH (12:00)
--- NOTE | 2024-03-10 12:00 | NUR ---
PT IS LAYING IN BED WATCHING TV, STATES " WHEN ITS AVAILABLE AGAIN I WOULD LIKE MEDICATION FOR PAIN." REASSURED PT THAT I WOULD BRING IT IN WHEN AVAILABLE. PT IS HAVING CRYING EPISODES STATING SHE IS JUST " SAD BECAUSE OF WHERE MY LIFE HAS GONE." SAT AND HAD THERAPEUTIC CONVERSATION WITH THE PATIENT AND REASSURED HER WE WOULD HAVE CASE MANAGEMENT TALK TO HER ABOUT LIVING ASSISTANCE OR GOVERNMENT SUPPORT.
[2024-03-10 14:59] VITALS: BP 150/72
--- NOTE | 2024-03-10 18:00 | NUR ---
PT IS SITTING IN BED WATCHING TV, SILVADENE WAS APPLIED TO PTS FOOT THIS AM AND IS STILL IN PLACE TO RIGHT FOOT
[2024-03-10 18:49] VITALS: BP 112/67
[2024-03-10 19:12] VITALS: BP 112/67
--- NOTE | 2024-03-10 19:55 | NUR ---
BEDSIDE SHIFT REPORT COMPLETED. RESP EVEN AND UNLABORED. STATES FEELIONG DEPRESSED, HOPELESS. WILL NOTIFY MD TO GET PSYCH CONSULT. CALL LIGHT IN REACH.
--- NOTE | 2024-03-11 | NUR ---
RESTING IN BED, ALERT ORIENTED X4. VERY TEARFUL DURING NIGHT. STATES SHE FEELS WORTHLESS. UPSET THAT SHE HAS TO GO TO REHAB FOR CUSTODIAL ABT THERAPY.
[2024-03-11] MEDS ORDERED: SODIUM CHLORIDE 0.9% 500 ML IV ONE (03:14)
--- NOTE | 2024-03-11 04:00 | NUR ---
RESTING IN BED WITH EYES CLOSED. RESP EVEN AND UNLABORED. MEDICATED FOR PAIN WITH GOOD RESULTS. IV INFUSING VIA PICC LINE. NO S/S OF ADVERSE EFFECTS NOTED.
[2024-03-11 04:54] VITALS: BP 128/80
[2024-03-11 04:56] LABS: EOS% 10.6 % (0-8); HEMATOCRIT 38.6 % (37.0-47.0); HEMOGLOBIN 11.8 g/dl (12.0-16.0); IMMATURE GRANULOCYTES 0.3 % (0.0-5.0); LYMPH% 33.4 % (15-41); MEAN CELL VOLUME 98.2 fL CALC (80.0-100.0); MEAN CORPUSCULAR HGB CONC 30.6 g/dL CAL (32.0-36.0); MONO% 9.4 % (2-13); NEUT# 2.63 thou/uL (2.00-7.15); NEUT% 45.3 % (42-76); RED BLOOD COUNT 3.93 mill/uL (4.20-5.60); RED CELL DISTRI WIDTH 15.2 % (11.5-15.5)
[2024-03-11 05:08] LABS: ALBUMIN 3.6 g/dL (3.2-5.0); BILIRUBIN, TOTAL 0.6 mg/dL (0.02-1.3); CREATININE 0.5 mg/dL (0.5-1.0); MAGNESIUM 1.7 mg/dL (1.6-2.3); POTASSIUM 4.1 mmol/l (3.5-5.1); TOTAL PROTEIN 7.5 g/dL (6.3-8.2)
[2024-03-11 07:00] VITALS: BP 133/85
--- NOTE | 2024-03-11 07:26 | NUR ---
PATIENT LAYING IN BED WITH EYES CLOSED BUT EASILY AROUSED. PATIENT A&OX4 AND ABLE TO MAKE NEEDS KNOWN. PATIENT ABDOMEN SOFT AND NONTENDER, RESPIRATIONS EVEN AND UNLABORED. PATIENT DENIES ANY NEEDS AT THIS TIME. WILL CONTINUE TO MONITOR.
--- NOTE | 2024-03-11 09:31 | NUR ---
S: SHARON YAP is a 53 F who presents with CELLULITIS OF BOTH LOWER EXTREMITIES, DIABETES, RESTLESS LEG SYNDROME, HYPOTHYROIDISM, ASCITES OF LIVER, CIRRHOSIS OF LIVER, AND DM FOOT ULCERS. All medications in patient's chart were reviewed. O: VS: BP 133/85, P 91, RR 20,T 97.7 F W 106kg, HT 66IN, Scr=0.5,CrCl= 136ml/min TROUGH=14 A: Blood culture shows NO GROWTH P: Patient is on VANCOMYCIN 1GM IV Q12H AND CEFEPIME 2GM IV Q8H. Vancomycin ordered for pharmacy to dose. CONTINUE Vancomycin 1GM IV Q12H. Vancomycin trough is drawn before the 4th dose on 03/13/24 @0130. Vancomycin goal trough is between 10-15 mcg/ml. Pharmacy will follow and or advise on antibiotics use as needed.
[2024-03-11 11:18] VITALS: BP 117/78
--- NOTE | 2024-03-11 12:00 | NUR ---
PATIENT SITTING UP IN BED, HAVING LUNCH. PATIENT DENIES ANY NEEDS AT THIS TIME. WILL CONTINUE TO MONITOR.
[2024-03-11] MEDS ORDERED: SILVER SULFADIAZINE 50 GM/TUBE EA TOP SCH (14:00)
[2024-03-11 15:22] VITALS: BP 136/89
--- NOTE | 2024-03-11 15:46 | NUR ---
PATIENT SITTING UP IN BED, WATCHING TV. PATIENT DENIES ANY NEEDS AT THIS TIME. WILL CONTINUE TO MONITOR.
[2024-03-11 18:36] VITALS: BP 137/84
[2024-03-11 19:04] VITALS: BP 137/84
--- NOTE | 2024-03-11 19:58 | NUR ---
BEDSIDE SHIFT REPORT COMPLETED. RESP EVEN AND UNLABORED. C/O PAIN AND ANXIETY. LESS TEARFULL TODAY. PICC LINE FLUSHES WELL. CALL LIGHT IN REACH.
--- NOTE | 2024-03-12 | NUR ---
GOOD RESULTS FROM IV ATIVAN AND PO PAIN MEDICATION. RESTING IN BED WITH EYES CLOSED. ABT INFUSING VIA PICC LINE IN RIGHT UPPER ARM WITH OUT ANY S/S OF ADVERSE REACTIONS. VANCO TROUGH NOT DUE WITH THIS DOSE. CALL LIGHT IN REACH
[2024-03-12 00:15] VITALS: BP 130/81
[2024-03-12 04:48] VITALS: BP 140/79
--- NOTE | 2024-03-12 05:00 | NUR ---
SLEPT WELL DURING NIGHT. NO C/O NOTED. TOLERATING ABT WITHOUT ANY S/S OF ADVERSE REACTIONS. CALL LIGHT IN REACH. USES BSC FOR ELIMINATION. REFUSES DRESSING TO WOUNDS ON FEET. STATES IT CAUSES HER TO MUCH PAIN DUE TO THE NEUROPATHY.
--- NOTE | 2024-03-12 07:00 | NUR ---
PATIENT LAYING IN BED WAITINT ON BREAKFAST. PATIENT A&OX4 AND ABLE TO MAKE NEEDS KNOWN. PATIENT DENIES ANY NEEDS AT THIS TIME. WILL CONTINUE TO MONITOR.
[2024-03-12 08:44] VITALS: BP 148/56
[2024-03-12] MEDS ORDERED: FUROSEMIDE 40 MG/TAB PO SCH (09:00)
[2024-03-12 11:41] VITALS: BP 136/74
--- NOTE | 2024-03-12 12:00 | NUR ---
PATIENT SITTING UP IN BED, HAVING LUNCH. PATIENT DENIES ANY NEEDS AT THIS TIME. WILL CONTINUE TO MONITOR.
[2024-03-12 15:42] VITALS: BP 121/78
--- NOTE | 2024-03-12 16:00 | NUR ---
PATIENT SITTING UP IN BED. FAMILY AT BEDSIDE. PATIENT DENIES ANY NEEDS AT THIS TIME. WILL CONTINUE TO MONITOR.
[2024-03-12 18:18] VITALS: BP 108/56
[2024-03-12] MEDS ORDERED: HYDROcodone 5 MG/Acetaminophen 325 MG/COMBO PO PRN (23:15)
[2024-03-12] MEDS ORDERED: HYDROcodone 5 MG/Acetaminophen 325 MG/COMBO PO SCH (23:15)
--- NOTE | 2024-03-13 01:00 | NUR ---
VANCO TROUGH 12. VANCO GIVEN ORDERED. CALL LIGHT IN REACH. RESTING WELL, STATED SECOND PILL OF LORTAB FINALLY HELPED WITH HER PAIN. PICC LINE IN RIGHT UPPER ARM REMAINS INTACT FLUSHES WELL.
--- NOTE | 2024-03-13 02:30 | NUR ---
CRYING C/O PAIN IN BILAT LOWER EXTREMITIES. STATED MEDICATIONS GIVEN DID NOT HELP WITH PAIN. CALLED MALINDA LEAL AND RECEIVED NEW ORDER FOR PAIN MEDICATION. GIVEN ORDERED.
[2024-03-13 02:44] VITALS: BP 102/72
--- NOTE | 2024-03-13 05:00 | NUR ---
NO C/O NOTED. DENIES PAIN AT CURRENT TIME. CALL LIGHT IN REACH.
[2024-03-13 06:00] LABS: HEMATOCRIT 36.1 % (37.0-47.0); HEMOGLOBIN 10.9 g/dl (12.0-16.0); MEAN CELL VOLUME 99.2 fL CALC (80.0-100.0); MEAN CORPUSCULAR HGB 29.9 pG CALC (26.0-32.0); MEAN CORPUSCULAR HGB CONC 30.2 g/dL CAL (32.0-36.0); RED BLOOD COUNT 3.64 mill/uL (4.20-5.60); RED CELL DISTRI WIDTH 15.2 % (11.5-15.5)
[2024-03-13 06:06] LABS: ALBUMIN 3.6 g/dL (3.2-5.0); BILIRUBIN, TOTAL 0.6 mg/dL (0.02-1.3); CREATININE 0.5 mg/dL (0.5-1.0); MAGNESIUM 1.7 mg/dL (1.6-2.3); POTASSIUM 4.3 mmol/l (3.5-5.1); TOTAL PROTEIN 7.2 g/dL (6.3-8.2)
[2024-03-13 07:13] VITALS: BP 124/70
[2024-03-13 10:34] VITALS: BP 130/78
--- NOTE | 2024-03-13 15:55 | NUR ---
SHARON YAP is a 53 F who presents with CELLULITIS OF BOTH LOWER EXTREMITIES, DIABETES, RESTLESS LEG SYNDROME, HYPOTHYROIDISM, ASCITES OF LIVER, CIRRHOSIS OF LIVER, AND DM FOOT ULCERS. All medications in patient's chart were reviewed. O: VS: BP 133/85, P 91, RR 20,T 97.7 F W 106kg, HT 66IN, Scr=0.5,CrCl= 136ml/min TROUGH=12 A: Blood culture shows NO GROWTH P: Patient is on VANCOMYCIN 1GM IV Q12H AND CEFEPIME 2GM IV Q8H. Vancomycin ordered for pharmacy to dose. CONTINUE Vancomycin 1GM IV Q12H. Vancomycin trough is drawn before the dose on 03/16/24 @0130. Vancomycin goal trough is between 10-15 mcg/ml. Pharmacy will follow and or advise on antibiotics use as needed.
[2024-03-13 16:22] VITALS: BP 105/70
[2024-03-13 19:09] VITALS: BP 125/86
--- NOTE | 2024-03-13 21:30 | NUR ---
PATIENT RESTING IN BED AT THIS TIME-AWAKE ALERT AND ORIENTEDX3. BLOOD SUGAR TONIGHT WAS 130-NO COVERAGE REQUIRED. HS SNACK PROVIDED. TELE MONITOR IN PLACE READING SR-90'S. IVF NS PATENT AND INFUSING VIA RIGHT UPPER ARM PICC AT KVO RATE. BLE WOUNDS COMMISSION FOR THE BLIND DIRECTOR-PATIENT REFUSING DRESSINGS AND ANY FURTHER SURGERY. FEET ARE COLD TO TOUCH WITH POOR CIRCULATION. LUNGS ARE CLEAR. ABD SOFT WITH ACTIVE BS. STATES THAT SHE DID HAVE BM TODAY AND UP TO THE BSC TO VOID YELLOW URINE,HAS BEEN MEDICATED FOR FOOT PAIN WITH SOME RELIEF BUT NOW C/O SEVERE HEADACHE. FEET ARE ELEVATED ON PILLOWS. SAFETY PRECAUTIONS REINFORCED. CALL LIGHT IN REACH. WILL CONT TO MONITOR.
[2024-03-13 23:57] VITALS: BP 125/56; BP 141/86
[2024-03-14] VITALS (7 sets, daily range): BP systolic 99–132; BP diastolic 62–90
--- NOTE | 2024-03-14 01:00 | NUR ---
PATIENT RESTING IN BED AT THIS TIME-EYES CLOSED AND RESPS ARE EVEN. TELE MONITOR IN PLACE. PICC TO RIGHT UPPER ARM INTACT. CALL LIGHT IN REACH. WILL CONT TO MONITOR.
[2024-03-14] MEDS ORDERED: SODIUM CHLORIDE 0.9% 10 ML SYR IV SCH (04:50)
[2024-03-14] MEDS ORDERED: SODIUM CHLORIDE 0.9% 10 ML SYR IV PRN (04:50)
--- NOTE | 2024-03-14 05:00 | NUR ---
PATIENT RESTING IN BED AT THIS TIME-LAB WORK DRAWN FROM RIGHT UPPER ARM PICC WITHOUT ANY DIFFICULTY-GOOD BLOOD RETURN WHEN FLUSHED. CALL LIGHT IN REACH. WILL CONT TO MONITOR.
[2024-03-14 05:44] LABS: BASO% 0.7 % (0-3); EOS% 7.9 % (0-8); HEMATOCRIT 37.5 % (37.0-47.0); HEMOGLOBIN 11.4 g/dl (12.0-16.0); IMMATURE GRANULOCYTES 0.2 % (0.0-5.0); LYMPH% 31.8 % (15-41); MEAN CELL VOLUME 99.2 fL CALC (80.0-100.0); MEAN CORPUSCULAR HGB 30.2 pG CALC (26.0-32.0); MEAN CORPUSCULAR HGB CONC 30.4 g/dL CAL (32.0-36.0); MONO% 7.9 % (2-13); NEUT# 2.98 thou/uL (2.00-7.15); NEUT% 51.5 % (42-76); RED BLOOD COUNT 3.78 mill/uL (4.20-5.60); RED CELL DISTRI WIDTH 15.1 % (11.5-15.5)
[2024-03-14 05:49] LABS: ALBUMIN 3.7 g/dL (3.2-5.0); BILIRUBIN, TOTAL 0.7 mg/dL (0.02-1.3); CREATININE 0.5 mg/dL (0.5-1.0); MAGNESIUM 1.8 mg/dL (1.6-2.3); POTASSIUM 4.3 mmol/l (3.5-5.1); TOTAL PROTEIN 7.6 g/dL (6.3-8.2)
--- NOTE | 2024-03-14 07:20 | NUR ---
PT LAYING IN BED RESTING WITH EYES CLOSED, AROUSES EASILY TO VERBAL STIMULI, PT IS A&O X3, PUPILS PERRL, RESP. EVEN AND UNLABORED, LUNG SOUNDS CLEAR, ABD SOFT AND DISTENDED WITH ACTIVE BOWEL SOUNDS, STRONG RADIAL PULSES, WEAK PEDAL PULSES, R UPPER ARM PICC IN PLACE FLUSHES EASILY WITH A BRISK BLOOD RETURN, STRONG RADIAL PULSES, WEAK PEDAL PULSES, SAFETY MEASURES REINFORCED, CALL CARDONA WITHIN REACH
--- NOTE | 2024-03-14 12:00 | NUR ---
PT SITTING ON THE SIDE OF THE BED EATING HER LUNCH, A&O X 3, DENIES ANY NEEDS AT THIS TIME, CALL CARDONA WITHIN REACH
--- NOTE | 2024-03-14 16:20 | NUR ---
PT SITTING UP IN THE BED WATCHING TV, A&O X 3, VERBALIZES NO COMPLAINTS AT THIS TIME, REMINDED TO CALL FOR ASSISTANCE, CALL CARDONA WITHIN REACH
--- NOTE | 2024-03-14 20:00 | NUR ---
PATIENT RESTING IN BED WATCHING TV. AWAKE ALERT AND ORIENTEDX3. PATIENT WITH PICC TO RIGHT UPPER ARM INTACT. MAXIPIME HUNG ORDERED VIA PICC. SITE IS HEALTHY AT THIS TIME. TELE MONITOR IN PLACE. PATIENT FOUND WITH TOOTHBRUSH PICKING AT [employer]-STATES THAT SHE WANTS TO CLEAN THEM UP. PATIENT HAS RECENTLY REFUSED ANY FURTHER SURGERY AND OR WOUND CARE CARE TO THESE FEET. ONLY CURRENTLY RECEIVING ANTIBIOTICS TREATMENT. ENCOURAGED PATIENT TO LEAVE THE WOUNDS ALONE TO NOT MAKING THE WOUNDS ANY WORSE. 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 SAFETY PRECAUTIONS REINFORCED. CALL LIGHT IN REACH. WILL CONT TO MONITOR.
--- NOTE | 2024-03-14 21:37 | NUR ---
PATIENT RESTING IN BED AT THIS TIME-MAXIPIME INFUSED ORDERED VIA RIGHT UPPER ARM PICC. BLOOD SUGAR TONIGHT IS 157-COVERED WITH HUMALOG 1UNIT PER COVERAGE PROTOCOL. PROVIDED WITH HS SNACK. C/O FOOT PAIN AND HEADACHE-6/10 ON PAIN SCALE-MEDICATED WITH LORTAB 5/325MG 2 TABLETS ORDERED FOR PAIN. TELE MONITOR IN PLACE. SAFETY PRECAUTIONS REINFORCED CALL LIGHT IN REACH. WILL CONT TO MONITOR.
[2024-03-15] VITALS (9 sets, daily range): BP systolic 99–128; BP diastolic 62–81
--- NOTE | 2024-03-15 00:44 | NUR ---
PATIENT RESTING IN BED AT THIS TIME WITH EYES CLOSED. RESPS ARE EVEN AND UNLABORED. TELE MONITOR IN PLACE. PICC TO RIGHT UPPER ARM INTACT. CALL LIGHT IN REACH. WILL CONT TO MONITOR.
--- NOTE | 2024-03-15 02:00 | NUR ---
PATIENT RESTING IN BED-C/O NAUSEA AND MEDICATED WITH ZOFRAN 4MG IVP. VANCO HUNG ORDERED AND INFUSING VIA RIGHT UPPER ARM PICC. TELE MONITOR IN PLACE. CALL LIGHT IN REACH. WILL CONT TO MONITOR.
--- NOTE | 2024-03-15 04:29 | NUR ---
RESTING IN BED-LAB WORK DRAWN FROM RIGHT UPPER ARM PICC-GOOD BLOOD RETURN. MAXIPIME HUNG ORDERED. TELE MONITOR IN PLACE. PATIENT UP TO THE BSC TO VOID LORIE URINE. CALL LIGHT IN REACH. WILL CONT TO MONITOR.
[2024-03-15 04:56] LABS: BASO% 1.3 % (0-3); EOS% 8.8 % (0-8); HEMATOCRIT 38.5 % (37.0-47.0); HEMOGLOBIN 11.8 g/dl (12.0-16.0); IMMATURE GRANULOCYTES 0.2 % (0.0-5.0); LYMPH% 33.2 % (15-41); MEAN CELL VOLUME 98.5 fL CALC (80.0-100.0); MEAN CORPUSCULAR HGB 30.2 pG CALC (26.0-32.0); MEAN CORPUSCULAR HGB CONC 30.6 g/dL CAL (32.0-36.0); MONO% 9.3 % (2-13); NEUT# 2.85 thou/uL (2.00-7.15); NEUT% 47.2 % (42-76); RED BLOOD COUNT 3.91 mill/uL (4.20-5.60); RED CELL DISTRI WIDTH 15.1 % (11.5-15.5)
[2024-03-15 05:12] LABS: BILIRUBIN, TOTAL 0.6 mg/dL (0.02-1.3); CREATININE 0.6 mg/dL (0.5-1.0); MAGNESIUM 1.8 mg/dL (1.6-2.3); POTASSIUM 4.7 mmol/l (3.5-5.1); TOTAL PROTEIN 8.1 g/dL (6.3-8.2)
--- NOTE | 2024-03-15 07:30 | NUR ---
PATIENT SITTING UP ON SIDE OF BED, A&OX4. BREATHING UNLABORED AND EVEN ON ROOM AIR. TELE INTACT. ASSESSMENT COMPLETED. PT DENIES ANY N/D/V AT THIS TIME. PT STATES PAIN IS A 6 OUT OF 10;MEDICATION REVIEWED. PT STATES SHE WOULD LIKE A SHOWER; PHARMACOGNOSY TEACHER INFORMED. BED IN LOWEST POSITION. PERSONAL ITEMS WITHIN REACH WELL CALL LIGHT; PT VERBALIZED UNDERSTANDING OF USE. NO NEEDS AT THIS TIME.
[2024-03-15] MEDS ORDERED: IBUPROFEN 600 MG/TAB PO PRN (09:20)
--- NOTE | 2024-03-15 12:35 | NUR ---
PATIENT SITTING UP IN BED WATCHING TV. BREATHING EVEN AND UNLABORED ON ROOM AIR. TELE INTACT. PT DENIES ANY N/D/V AT THIS TIME. DENIES ANY PAIN. PERSONAL ITEMS WITHIN REACH WELL CALL LIGHT. NO NEEDS AT THIS TIME.
--- NOTE | 2024-03-15 16:12 | NUR ---
PATIENT LYING SUPINE IN BED RESTING WITH EYES CLOSED. BREATHING UNLABORED ON ROOM AIR. NO SIGNS OF DISTRESS NOTED. PERSONAL ITEMS WITHIN REACH WELL CALL LIGHT. BED IN LOWEST POSITION. NO NEEDS AT THIS TIME.
--- NOTE | 2024-03-15 20:00 | NUR ---
PATIENT REPORTS HEADACHE WITH IV ANTIBIOTIC INFUSION. PATIENT STATES SHE SPOKE WITH DR. VAZQUEZ ABOUT IT DURING THE DAY. PATIENT STATES SHE DOES NOT USUALLY GET HEADACHES. BED LOCKED IN LOWEST POSITION, CALL LIGHT WITHIN REACH.
[2024-03-16] VITALS (9 sets, daily range): BP systolic 105–139; BP diastolic 69–89
--- NOTE | 2024-03-16 | NUR ---
PATIENT SITTING UP IN BED. NO CHANGE IN ASSESSMENT.
--- NOTE | 2024-03-16 04:00 | NUR ---
PATIENT RESTING IN BED WITH VANCOMYCIN INFUSING. PATIENT WAS MEDICATED PRIOR TO VANCOMYCIN INFUSION FOR PAIN AND NAUSEA. PATIENT STATES MEDICATION HELPED HEADACHE AND NAUSEA HAS SUBSIDED.
[2024-03-16 05:17] LABS: ALBUMIN 3.8 g/dL (3.2-5.0); BILIRUBIN, TOTAL 0.6 mg/dL (0.02-1.3); CREATININE 0.5 mg/dL (0.5-1.0); MAGNESIUM 1.7 mg/dL (1.6-2.3); POTASSIUM 4.6 mmol/l (3.5-5.1); TOTAL PROTEIN 7.5 g/dL (6.3-8.2)
[2024-03-16 05:22] LABS: EOS% 6.7 % (0-8); HEMATOCRIT 36.1 % (37.0-47.0); HEMOGLOBIN 11.1 g/dl (12.0-16.0); IMMATURE GRANULOCYTES 0.2 % (0.0-5.0); LYMPH% 28.8 % (15-41); MEAN CELL VOLUME 99.2 fL CALC (80.0-100.0); MEAN CORPUSCULAR HGB 30.5 pG CALC (26.0-32.0); MEAN CORPUSCULAR HGB CONC 30.7 g/dL CAL (32.0-36.0); MONO% 10.4 % (2-13); NEUT# 3.14 thou/uL (2.00-7.15); NEUT% 52.9 % (42-76); RED BLOOD COUNT 3.64 mill/uL (4.20-5.60); RED CELL DISTRI WIDTH 14.8 % (11.5-15.5)
--- NOTE | 2024-03-16 07:15 | NUR ---
PT SITTING ON THE SIDE OF THE BED WATCHING TV, PT IS A&O X3, PT COMPLAINS OF A HEADACHE BUT DID NOT WANT ANY MEDICATION AT THIS TIME, RESP. EVEN AND UNLABORED, LUNG SOUNDS ARE CLEAR, NORMAL S1 S2 HEART SOUNDS, ABD DISTENDED AND SOFT WITH ACTIVE BOWEL SOUNDS, STRONG RADIAL PULSES, WEAK PEDAL PULSES, PT'S BLE ARE DISCOLORED AND COOL TO THE TOUCH, PICC LINE IN PLACE SL, SAFETY MEASURES REINFORCED, CALL CARDONA WITHIN REACH
[2024-03-16] MEDS ORDERED: LORazepam 0.5 MG/TAB PO PRN (11:40)
[2024-03-16] MEDS ORDERED: FLUTICASONE PROPIONATE (Nasal) 50MCG/SPRAY INH SCH (12:00)
--- NOTE | 2024-03-16 12:00 | NUR ---
PT SITTING ON THE EDGE OF THE BED WATCHING TV AND EATING LUNCH, NO S/S OF DISTRESS, PT REMINDED TO CALL FOR ASSISTANCE, CALL CARDONA WITHIN REACH
--- NOTE | 2024-03-16 13:27 | NUR ---
S: SHARON YAP is a 53 F who presents with cellulitis and diabetic foot infection. She has a history of diabetes, stage IV cirrhosis secondary to ALVARADO, hypertension and hyperlipidemia. All medications in patient's chart were reviewed. O: VS: BP: 120/86 mmHg , P: 88 bpm, RR:20 breaths/min, T:97.8 F. W: 100 kg, HT: 66 in, Scr=0.5 mg/dL, CrCl= 136 ml/min Vancomycin trough 03/16 = 13 A: Blood culture shows no growth after 5 days incubation. Vancomycin trough within goal range of 10-15. P: Patient is on cefepime 2 g IV Q8H. Vancomycin ordered for pharmacy to dose. Continue Vancomycin 1 g IV Q12H. Vancomycin trough is drawn before the dose on 03/18/24 at 1330. Vancomycin goal trough is between 10-15 mcg/ml. Pharmacy will follow and or advise on antibiotics use as needed.
--- NOTE | 2024-03-16 16:00 | NUR ---
PT IS SITTING UP IN THE BED WATCHING TV, VISITORS ARE AT BEDSIDE, NO S/S OF DISTRESS, PT DENIES ANY NEEDS AT THIS TIME, CALL CARDONA WITHIN REACH
--- NOTE | 2024-03-16 20:00 | NUR ---
PATIENT SITTING UP IN BED WATCHING TELEVISION. DISCUSSED PLAN OF CARE FOR THE SHIFT, MEDICATIONS AND ADMINISTRATION TIMES. PATIENT STATES ALL NEEDS MET AT THIS TIME.
[2024-03-17] VITALS (7 sets, daily range): BP systolic 100–160; BP diastolic 50–77
--- NOTE | 2024-03-17 | NUR ---
PATIENT RESTING IN BED. ASSESSMENT UNCHANGED.
--- NOTE | 2024-03-17 04:10 | NUR ---
PATIENT SLEEPING AND WAS WOKEN UP TO GET LABS OFF PICC LINE WITHOUT INCIDENT. PATIENT STATES ALL OTHER NEEDS MET AT THIS TIME.
[2024-03-17 05:28] LABS: BASO% 1.1 % (0-3); EOS% 6.4 % (0-8); HEMATOCRIT 35.8 % (37.0-47.0); HEMOGLOBIN 10.8 g/dl (12.0-16.0); IMMATURE GRANULOCYTES 0.2 % (0.0-5.0); MEAN CORPUSCULAR HGB 30.2 pG CALC (26.0-32.0); MEAN CORPUSCULAR HGB CONC 30.2 g/dL CAL (32.0-36.0); MONO% 9.8 % (2-13); NEUT# 3.39 thou/uL (2.00-7.15); NEUT% 54.5 % (42-76); RED BLOOD COUNT 3.58 mill/uL (4.20-5.60); RED CELL DISTRI WIDTH 14.7 % (11.5-15.5)
[2024-03-17 05:47] LABS: ALBUMIN 3.9 g/dL (3.2-5.0); BILIRUBIN, TOTAL 0.5 mg/dL (0.02-1.3); CREATININE 0.6 mg/dL (0.5-1.0); MAGNESIUM 1.6 mg/dL (1.6-2.3); POTASSIUM 4.3 mmol/l (3.5-5.1); TOTAL PROTEIN 7.7 g/dL (6.3-8.2)
--- NOTE | 2024-03-17 07:24 | NUR ---
PATIENT LYING SUPINE IN BED. BREATHING UNLABORED ON ROOM AIR. PICC INTACT. ASSESSMENT COMPLETED. TELE INTACT. PT DENIES ANY N/D/V AT THIS TIME. REPORTS PAIN IN RIGHT FOOT;MEDICATION REVIEWED. PERSONAL ITEMS WITHIN REACH. BED IN LOWEST POSITION. CALL LIGHT NEAR;PT VERBALIZED UNDERSTANDING OF USE.
--- NOTE | 2024-03-17 12:35 | NUR ---
PATIENT SITITNG UP IN BED WATCHING TV. BREATHING UNLABORED ON ROOM AIR. TELE INTACT. DENIES ANY PAIN AT THE MOMENT. DENIES ANY N/D/V AT THIS TIME. PT STATES SHE WOULD LIKE A SHOWER;PBX TEACHER INFORMED. BED IN LOWEST POSITION. CALL LIGHT WITHIN REACH. NO NEEDS AT THIS TIME.
--- NOTE | 2024-03-17 16:30 | NUR ---
PATIENT LYING IN BED WATCHING TV. BREATHING UNLABORED ON ROOM AIR. TELE INTACT. PT DENIES ANY PAIN AT THIS TIME. DENIES ANY N/D/V AT THIS TIME. BED IN LOWEST POSITION. CALL LIGHT WITHIN REACH WELL PERSONAL ITEMS. NO NEEDS AT THIS TIME.
--- NOTE | 2024-03-17 20:00 | NUR ---
BEDSIDE SHIFT REPORT COMPLETED, RESP EVEN AND UNLABORED. NO C/O NOTED.
[2024-03-18] VITALS (8 sets, daily range): BP systolic 93–132; BP diastolic 56–89
--- NOTE | 2024-03-18 01:00 | NUR ---
PAIN MEDICATION AND ATIVAN GIVEN FOR C/O PAIN AND ANXIETY. CALL LIGHT IN REACH. IV PICC PATENT FLUSHES WELL.
--- NOTE | 2024-03-18 05:00 | NUR ---
LABS DRAWN FROM PICC LINE. IV ABT INFUSED WITH NO S/S OF ADVERSE REACTIONS. CALL LIGHT IN REACH.
[2024-03-18 05:23] LABS: BASO% 1.3 % (0-3); EOS% 7.8 % (0-8); HEMATOCRIT 37.1 % (37.0-47.0); HEMOGLOBIN 11.1 g/dl (12.0-16.0); IMMATURE GRANULOCYTES 0.3 % (0.0-5.0); LYMPH% 32.3 % (15-41); MEAN CELL VOLUME 98.7 fL CALC (80.0-100.0); MEAN CORPUSCULAR HGB 29.5 pG CALC (26.0-32.0); MEAN CORPUSCULAR HGB CONC 29.9 g/dL CAL (32.0-36.0); MONO% 9.4 % (2-13); NEUT# 3.36 thou/uL (2.00-7.15); NEUT% 48.9 % (42-76); RED BLOOD COUNT 3.76 mill/uL (4.20-5.60); RED CELL DISTRI WIDTH 14.8 % (11.5-15.5)
[2024-03-18 05:46] LABS: BILIRUBIN, TOTAL 0.6 mg/dL (0.02-1.3); CREATININE 0.6 mg/dL (0.5-1.0); POTASSIUM 4.4 mmol/l (3.5-5.1)
--- NOTE | 2024-03-18 07:30 | NUR ---
PATIENT LAYING IN BED. PATIENT A&OX4 AND ABLE TO MAKE NEEDS KNOWN. PATIENT RESPIRSTIONS EVEN AND UNLABORED. PATIENT DENIES ANY NEEDS AT THIS TIME. WILL CONTINUE TO MONITOR.
--- NOTE | 2024-03-18 12:03 | NUR ---
PATIENT SITTING UP IN BED, HAVING LUNCH. PATIENT DENIES ANY NEEDS AT THIS TIME. WILL CONTINUE TO MONITOR.
--- NOTE | 2024-03-18 16:02 | NUR ---
PATIENT LAYING IN BED, WATCHING TV. PATIENT DENIES ANY NEEDS AT THIS TIME. WILL CONTINUE TO MONITOR.
[2024-03-18] MEDS ORDERED: SODIUM CHLORIDE 0.9% 500 ML IV ONE (20:59)
[2024-03-19 00:11] VITALS: BP 131/80
[2024-03-19 04:15] VITALS: BP 130/86
[2024-03-19 05:12] LABS: EOS% 8.2 % (0-8); HEMATOCRIT 35.6 % (37.0-47.0); HEMOGLOBIN 11.2 g/dl (12.0-16.0); IMMATURE GRANULOCYTES 0.6 % (0.0-5.0); LYMPH% 27.2 % (15-41); MEAN CELL VOLUME 96.7 fL CALC (80.0-100.0); MEAN CORPUSCULAR HGB 30.4 pG CALC (26.0-32.0); MEAN CORPUSCULAR HGB CONC 31.5 g/dL CAL (32.0-36.0); MONO% 8.7 % (2-13); NEUT# 3.85 thou/uL (2.00-7.15); NEUT% 54.3 % (42-76); RED BLOOD COUNT 3.68 mill/uL (4.20-5.60); RED CELL DISTRI WIDTH 14.7 % (11.5-15.5)
[2024-03-19 05:30] LABS: CREATININE 0.5 mg/dL (0.5-1.0); POTASSIUM 4.4 mmol/l (3.5-5.1)
[2024-03-19 07:23] VITALS: BP 94/62
--- NOTE | 2024-03-19 07:35 | NUR ---
PATIENT SITTING UP IN BED FOR BREAKFAST. ASSESSMENT COMPLETED. PATIENT ALERT AND ORIENTED X 4. C/O BEAR PAIN, MEDICATED ACCORDING TO EMAR. LUNGS CLEAR TO ASCULTATION. BREATHING EVEN AND UNLABORED ON ROOM AIR. DRESSING TO BILATERAL FEET CLEAN, DRY AND INTACT. PATIENT REFUSES TO ALLOW NURSING STAFF TO PERFORM DRESSING CHANGES, BUT WILL HERSELF. LAST BM 03/18. DENIES ADDITIONAL CONCERNS AT THIS TIME. SAFETY MEASURES IN PLACE INCLUDING BED IN LOW POSITION AND CALL LIGHT RESTING NEXT TO R LEG. NO APPARENT DISTRESS NOTED. WILL CONTINUE WITH PLAN OF CARE.
[2024-03-19 09:07] VITALS: BP 126/82
[2024-03-19] MEDS ORDERED: LEVOTHYROXIN50 MC1 PO (11:22)
[2024-03-19] MEDS ORDERED: ROPINIROLE0.5 MG PO (11:22)
[2024-03-19] MEDS ORDERED: LOSARTAN POTASS50 MG PO (11:22)
[2024-03-19] MEDS ORDERED: LASIX 40 MG TAB40 MG PO (11:22)
[2024-03-19] MEDS ORDERED: ALDACTONE25 MG PO (11:22)
[2024-03-19] MEDS ORDERED: GABAPENTIN800 MG PO (11:22)
[2024-03-19] MEDS ORDERED: LORTAB 7.57.5 MG PO (11:25)
[2024-03-19] MEDS ORDERED: ATIVAN1 M1 PO (11:25)
--- NOTE | 2024-03-19 12:00 | NUR ---
PATIENT SITTING UP IN BED. DENIES DISCOMFORT OR CONCERNS. PATIENT ADVISED THAT INSTRUCTOR BRIDGE CAN REMOVE PICC LINE, NO NEED FOR RADIOLOGY. VERBALIZED UNDERSTANDING. WILL CONTINUE TO MONITOR
--- NOTE | 2024-03-19 16:00 | NUR ---
PATIENT UPSET ABOUT NOT BEING ABLE TO FIND A FAMILY MEMBER/FRINED TO PICK HER UP FOLLOWING DISCHARGE. WILL SPEAK WITH GEOTECHNICIAL PROPERTIES TECHNICIAN ABOUT PATIENT'S OPTIONS. NO ADDITIONAL CONCERNS AT THIS TIME. WILL CONTINUE TO FOLLOW PLAN OF CARE.
--- NOTE | 2024-03-19 16:44 | NUR ---
pt refused accu check
--- NOTE | 2024-03-19 17:45 | NUR ---
Discharge instructions given. Patient verbalizes understanding of same. Discharged in stable condition via Wheelchair to *Other with staff. All belongings sent with pt. THIS MEDICAL REIMBURSEMENT MANAGER ATTEMPTED TO CONTACT PATIENT'S SISTER AT [phone]. PHONE WENT STRAIGHT TO , PATIENT MADE AWARE. PATIENT REFUSED TAXI RIDE TO [facility] IN [place] BECAUSE SHE NEEDS TO "GO TO THE SOCIAL SECURITY OFFICE AND TO THE OFFICE IN [place]" TO OBTAIN PAPERWORK FOR A PLACE TO RENT. PATIENT ACCOMPAINED BY THIS STAFF MEMBER TO THE BENCHES OUTSIDE OF THE ER.
--- NOTE | 2024-03-19 18:13 | NUR ---
pt remains sitting out on front of hospital on bench after being discharged, i went out and asked her if she had someplace to go, she told me she had no place to go, i advised her that she could not stay on the property , she needed to leave or i would have to call the police and have her trespassed, she said she would just leave and go sit at [facility] then.
== END 2024-03-19 17:45 | disposition home or self-care (01) | DRG 433 ==
LOC: ED 09:19 → ED-I 12:00 → MS2 12:41 → ED 12:41 → MS2 12:41
PROVIDERS: Family Medicine; Internal Medicine; Nurse Practitioner Family; ADMIT Student in an Organized Health Care Education/Training Program; ATTEND Student in an Organized Health Care Education/Training Program
PROC: 02HV33Z Insertion of Infusion Device into Superior Vena Cava, Percutaneous Approach (ICD-10-PCS; principal; 2024-03-10)
PROC: B518ZZA Fluoroscopy of Superior Vena Cava, Guidance (ICD-10-PCS; 2024-03-10)
DX: K74.69 Other cirrhosis of liver (principal); L03.115 Cellulitis of right lower limb; R18.8 Other ascites; L03.116 Cellulitis of left lower limb; M86.672 Other chronic osteomyelitis, left ankle and foot; E11.69 Type 2 diabetes mellitus with other specified complication; T87.81 Dehiscence of amputation stump; Y83.5 Amputation of limb(s) as the cause of abnormal reaction of the patient, or of later complication, without mention of misadventure at the time of the procedure; K75.81 Nonalcoholic steatohepatitis (NASH); E11.621 Type 2 diabetes mellitus with foot ulcer; L97.529 Non-pressure chronic ulcer of other part of left foot with unspecified severity; L97.519 Non-pressure chronic ulcer of other part of right foot with unspecified severity; E11.628 Type 2 diabetes mellitus with other skin complications; I10 Essential (primary) hypertension; E78.5 Hyperlipidemia, unspecified; M10.9 Gout, unspecified; E11.65 Type 2 diabetes mellitus with hyperglycemia; E11.42 Type 2 diabetes mellitus with diabetic polyneuropathy; G25.81 Restless legs syndrome; I25.10 Atherosclerotic heart disease of native coronary artery without angina pectoris; E03.9 Hypothyroidism, unspecified; F15.10 Other stimulant abuse, uncomplicated; D73.2 Chronic congestive splenomegaly; R51.9 Headache, unspecified; Z98.84 Bariatric surgery status; Z72.0 Tobacco use; Z89.421 Acquired absence of other right toe(s); Z91.198 Patient's noncompliance with other medical treatment and regimen for other reason; Z91.148 Patient's other noncompliance with medication regimen for other reason; Z20.822 Contact with and (suspected) exposure to COVID-19
CPT/HCPCS: J0692; J1650; J2060; J3370; Q9967

== ENCOUNTER 2024-03-26 12:44 | Emergency (ER) | payer BC, OTHER ==
[2024-03-26] VITALS (9 sets, daily range): BP systolic 126–142; BP diastolic 78–99
[~2024-03-26] VITALS: Ht 167.6 cm; Wt 91.0 kg
[~2024-03-26 12:44] MED LIST changes: +ALDACTONE25 MG PO; +ATIVAN1 M1 PO; +CEFEPIME2 GM IV; +DAPTOMYCIN/SODI1 IN2 IV; +LASIX 40 MG TAB40 MG PO; +LEVOTHYROXIN50 MC1 PO; +LORTAB 7.57.5 MG PO; +LOSARTAN POTASS50 MG PO; +METRONIDAZOLE500 MG PO; +ROPINIROLE0.5 MG PO; +VANCOMYCIN HYDRO1 GM IV
[2024-03-26] MEDS ORDERED: KETOROLAC TROMETHAMINE 15 MG/ML SDV IV ONE (13:05)
[2024-03-26] MEDS ORDERED: HYDROcodone 5 MG/Acetaminophen 325 MG/COMBO PO ONE (13:05)
[2024-03-26 13:34] LABS: BASO% 1.2 % (0-3); EOS% 6.7 % (0-8); HEMATOCRIT 37.5 % (37.0-47.0); HEMOGLOBIN 11.8 g/dl (12.0-16.0); IMMATURE GRANULOCYTES 0.3 % (0.0-5.0); LYMPH% 20.7 % (15-41); MEAN CORPUSCULAR HGB 29.6 pG CALC (26.0-32.0); MEAN CORPUSCULAR HGB CONC 31.5 g/dL CAL (32.0-36.0); MONO% 7.2 % (2-13); NEUT# 4.96 thou/uL (2.00-7.15); NEUT% 63.9 % (42-76); RED BLOOD COUNT 3.99 mill/uL (4.20-5.60); RED CELL DISTRI WIDTH 14.6 % (11.5-15.5)
[2024-03-26 13:36] LABS: ALBUMIN 4.6 g/dL (3.2-5.0); BILIRUBIN, TOTAL 1.3 mg/dL (0.02-1.3); CREATININE 0.6 mg/dL (0.5-1.0); POTASSIUM 3.5 mmol/l (3.5-5.1); TOTAL PROTEIN 9.1 g/dL (6.3-8.2)
[2024-03-26] MEDS ORDERED: SODIUM CHLORIDE 0.9% 1,000 ML IV ONE (14:50)
[2024-03-26] MEDS ORDERED: TRAMADOL HYDROC50 M1 PO (15:14)
[2024-03-26] MEDS ORDERED: KEFLEX500 MG PO (15:14)
== END 2024-03-26 17:01 | disposition home or self-care (01) | DRG 603 ==
LOC: ED 12:44
PROVIDERS: Nurse Practitioner Family
DX: L03.115 Cellulitis of right lower limb (principal); L03.116 Cellulitis of left lower limb; E11.9 Type 2 diabetes mellitus without complications; I10 Essential (primary) hypertension; K74.60 Unspecified cirrhosis of liver; Z98.84 Bariatric surgery status; Z72.0 Tobacco use

== ENCOUNTER 2024-05-27 18:32 | Emergency (ER) | payer BC ==
[~2024-05-27] VITALS: Ht 167.6 cm; Wt 114.0 kg
[2024-05-27] VITALS (7 sets, daily range): BP systolic 148–185; BP diastolic 101–148
[~2024-05-27 18:32] MED LIST changes: +KEFLEX500 MG PO; +TRAMADOL HYDROC50 M1 PO
[2024-05-27] MEDS ORDERED: LASIX 40 MG TAB40 MG PO (19:35)
[2024-05-27] MEDS ORDERED: NEURONTIN400 MG PO (19:35)
[2024-05-27] MEDS ORDERED: METFORMIN HCL1000 MG PO (19:36)
[2024-05-27] MEDS ORDERED: LEVOTHYROXIN25 MC1 PO (19:36)
[2024-05-27] MEDS ORDERED: ROPINIROLE4 MG PO (19:36)
[2024-05-27] MEDS ORDERED: LOSARTAN POTASS50 MG PO (19:36)
[2024-05-27] MEDS ORDERED: SPIRONOLACT25 MG PO (19:37)
[2024-05-27] MEDS ORDERED: LISINOPRIL 20 MG/TAB PO ONE (20:15)
[2024-05-27 20:44] LABS: URINE BILIRUBIN - DIPSTICK Negative (NEGATIVE); URINE BLOOD DIPSTICK Negative (NEGATIVE); URINE GLUCOSE - DIPSTICK Negative (NEGATIVE); URINE KETONE Negative (NEGATIVE); URINE LEUK ESTERASE Negative (NEGATIVE); URINE NITRITE - DIPSTICK Negative (Negative); URINE PH 5.5 (4.5-8.0); URINE PROTEIN - DIPSTICK 100 mg/dL (NEG-TRACE); URINE SPECIFIC GRAVITY >=1.030
[2024-05-27 20:46] LABS: URINE COLOR Yellow
[2024-05-27 20:49] LABS: URINE AMORPH SEDIMENT MANY hpf (NONE-FEW); URINE SQUAMOUS EPITHELIAL CELL FEW EPI/hpf (0-FEW)
[2024-05-27] MEDS ORDERED: GABAPENTIN 300 MG/CAP PO ONE (21:10)
== END 2024-05-27 21:44 | disposition home or self-care (01) | DRG 761 ==
LOC: ED 18:32
PROVIDERS: Emergency Medicine
DX: N89.8 Other specified noninflammatory disorders of vagina (principal); I10 Essential (primary) hypertension; E11.42 Type 2 diabetes mellitus with diabetic polyneuropathy; K74.60 Unspecified cirrhosis of liver; F17.290 Nicotine dependence, other tobacco product, uncomplicated; T42.6X6A Underdosing of other antiepileptic and sedative-hypnotic drugs, initial encounter; Z91.128 Patient's intentional underdosing of medication regimen for other reason; Z98.84 Bariatric surgery status; Z79.84 Long term (current) use of oral hypoglycemic drugs

== ENCOUNTER 2024-06-01 14:02 | Inpatient (IN) | payer BC ==
[2024-06-01] VITALS (7 sets, daily range): BP systolic 96–149; BP diastolic 65–111
[~2024-06-01] VITALS: Ht 167.6 cm; Wt 90.7 kg
[~2024-06-01 14:02] MED LIST changes: +LEVOTHYROXIN25 MC1 PO; +METFORMIN HCL1000 MG PO; +NEURONTIN400 MG PO; +ROPINIROLE4 MG PO; +SPIRONOLACT25 MG PO
--- NOTE | 2024-06-01 14:20 | NUR ---
PT WALKED BACK TO ER ROOM 9 WITH A STEADY GAIT
[2024-06-01] MEDS ORDERED: BUMETANIDE 1 MG/4 ML VIAL IV ONE (14:45)
--- NOTE | 2024-06-01 15:00 | NUR ---
PATIENT TO BATHROOM WITH STEADY GAIT.
[2024-06-01 15:02] LABS: EOS% 5.9 % (0-8); HEMATOCRIT 37.4 % (37.0-47.0); HEMOGLOBIN 11.5 g/dl (12.0-16.0); IMMATURE GRANULOCYTES 0.1 % (0.0-5.0); LYMPH% 19.6 % (15-41); MEAN CELL VOLUME 96.9 fL CALC (80.0-100.0); MEAN CORPUSCULAR HGB 29.8 pG CALC (26.0-32.0); MEAN CORPUSCULAR HGB CONC 30.7 g/dL CAL (32.0-36.0); MONO% 7.2 % (2-13); NEUT# 5.13 thou/uL (2.00-7.15); NEUT% 66.2 % (42-76); RED BLOOD COUNT 3.86 mill/uL (4.20-5.60); RED CELL DISTRI WIDTH 14.6 % (11.5-15.5)
[2024-06-01 15:20] LABS: ALBUMIN 4.2 g/dL (3.2-5.0); ALKALINE PHOSPHATASE 110 u/l (38-126); ANION GAP 16 (6-22 (CALC)); BILIRUBIN, TOTAL 1.7 mg/dL (0.02-1.3); BUN 15 mg/dL (7-17); BUN/CREATININE RATIO 21 (12-20 (CALC)); C-REACTIVE PROTEIN 3.9 mg/dL (0-0.9); CHLORIDE 103 mmol/l (95-108); CREATININE 0.7 mg/dL (0.5-1.0); ESTIMATED GFR 105 ML/MIN (>=90 (CALC)); POTASSIUM 3.7 mmol/l (3.5-5.1); SGOT/AST 37 u/l (14-36); SODIUM 138 mmol/l (137-146); TOTAL PROTEIN 8.6 g/dL (6.3-8.2)
[2024-06-01 15:22] LABS: CARBON DIOXIDE 23 mmol/l (22-30)
[2024-06-01] MEDS ORDERED: traMADol HCL 50 MG/TAB PO PRN (15:40)
[2024-06-01] MEDS ORDERED: MAGNESIUM HYDROXIDE 30 ML UDC PO PRN (15:40)
[2024-06-01] MEDS ORDERED: IPRATROPIUM-Albuterol 0.5MG-2.5MG/3 ML NEB ONE (15:45)
[2024-06-01] MEDS ORDERED: methylPREDNISolone SODIUM SUCC 125 MG/2 ML SDV IV ONE (15:45)
[2024-06-01] MEDS ORDERED: VANCOMYCIN HCL 1 GM in SODIUM CHLORIDE 0.9% 250 ML IV ONE (15:45)
[2024-06-01] MEDS ORDERED: CEFEPIME HCL 1 GM/VIAL IV ONE (15:45)
[2024-06-01 15:50] LABS: INTERNATIONAL NORMALIZED RATIO 1.4 RATIO (0.7-1.3)
[2024-06-01] MEDS ORDERED: MORPHINE SULFATE 4 MG/ML VIAL IV ONE (15:50)
[2024-06-01 15:52] LABS: PROTHROMBIN TIME 14.4 SECONDS (9.0-12.5)
[2024-06-01] MEDS ORDERED: CEFEPIME HYDROCHLORIDE 1 GM in SODIUM CHLORIDE 0.9% 50 ML IV ONE (16:00)
--- NOTE | 2024-06-01 16:00 | NUR ---
PATIENT LYING IN BED WITH HOB ELEVATED. NO ACUTE DISTRESS NOTED AT THIS TIME.
[2024-06-01] MEDS ORDERED: CEFEPIME HYDROCHLORIDE 2 GM in SODIUM CHLORIDE 0.9% 100 ML IV SCH (16:30)
--- NOTE | 2024-06-01 16:31 | NUR ---
S: SHARON YAP is a 53 F who presents with left second toe infection, possible osteomyelitis. O: VS: BP 96/65, P 102, RR 20,T 98.0 W 122 kg, HT 66 in, Scr= 0.7,CrCl= 126 ml/min A: Blood culture is pending. P: Patient is on Vancomycin and Cefepime. Vancomycin ordered for pharmacy to dose. Start Vancomycin 1500 mg IV Q8H. Vancomycin trough is drawn before the 4th dose on 06/02 1630. Vancomycin goal trough is between <15-20 mcg/ml>. Pharmacy will follow and or advise on antibiotics use as needed.
[2024-06-01] MEDS ORDERED: VANCOMYCIN HCL 1,500 MG in SODIUM CHLORIDE 0.9% 470 ML IV SCH (17:00)
[2024-06-01] MEDS ORDERED: INSULIN LISPRO 100 UNITS/ML ML SC SCH (17:00)
--- NOTE | 2024-06-01 17:06 | NUR ---
PATIENT ARRIVED TO CO FROM THE ED TO ROOM 275 VIA WC. PATIENT A&OX3. BREATHING UNLABORED ON ROOM AIR. TELE INTACT. IV IN LEFT WRIST SL;SITE CLEAN AND INTACT PT DENIES ANY PAIN OR N/D/V AT THIS TIME. PERSONAL BELONGINGS WITH PT.PT EDUCATED ON SAFETY PRECAUTIONS AND CALL LIGHT USE;PT VERBALIZED UNDERSTANDING. BED IN LOWEST POSITION. CALL LIGHT WITHIN REACH. ASSESSMENT COMPLETED. POC ONGOING.
--- NOTE | 2024-06-01 17:20 | NUR ---
PATIENT TAKEN TO [facility] ROOM 275 WITH TELE # 16 VIA WHEELCHAIR.
[2024-06-01 17:31] LABS: URINE BILIRUBIN - DIPSTICK Negative (NEGATIVE); URINE BLOOD DIPSTICK Negative (NEGATIVE); URINE GLUCOSE - DIPSTICK Negative (NEGATIVE); URINE KETONE Negative (NEGATIVE); URINE LEUK ESTERASE Negative (NEGATIVE); URINE NITRITE - DIPSTICK Negative (Negative); URINE PH 5.5 (4.5-8.0); URINE PROTEIN - DIPSTICK 100 mg/dL (NEG-TRACE); URINE SPECIFIC GRAVITY 1.015; URINE UROBILINOGEN - DIPSTICK 0.2 E.U./dL (0.2)
[2024-06-01 17:32] LABS: URINE COLOR Yellow
[2024-06-01 17:41] LABS: URINE BACTERIA FEW hpf; URINE SQUAMOUS EPITHELIAL CELL FEW EPI/hpf (0-FEW); URINE WBC 0-2 WBC/hpf (0-5)
--- NOTE | 2024-06-01 19:20 | NUR ---
Pt is alert and orient. Pt is resting in bed laying on her back with her head elevated. Pt is able to make needs known. Edema and redness to bilateral feet. Open toe wound to be consulted with foot surgeon. Pt able to ambulate in room without assistance. Pt showing no s/s of distress at this time. Bed in low position with call light within reach.
[2024-06-01] MEDS ORDERED: FUROSEMIDE 40 MG/4 ML SDV IV SCH (21:00)
[2024-06-01] MEDS ORDERED: ENOXAPARIN SODIUM 40 MG/0.4 ML SYR SC SCH (21:00)
--- NOTE | 2024-06-01 21:06 | NUR ---
FOOT SURGEON CALLED AND SPOKE ABOUT PATIENT NPO STATUS AT MIDNIGHT. NO NEW ORDERS AT THIS TIME.
--- NOTE | 2024-06-01 21:19 | NUR ---
INFORMED HELP DESK COORDINATOR PROVIDER OF PATIENT ASKING ABOUT PRN MEDICATION FOR ANXIETY AND EXTREME PAIN. SEE EMAR FOR NEW ORDERS.
[2024-06-01] MEDS ORDERED: MORPHINE SULFATE 4 MG/ML VIAL IV PRN (21:30)
[2024-06-01] MEDS ORDERED: LORazepam 0.5 MG/TAB PO PRN (21:30)
--- NOTE | 2024-06-01 23:35 | NUR ---
Pt up in the room ambulating without distress. Pain medication administered for left toe pain. Pt to begin NPO status at midnight. Pt states that she is ok and that there is nothing that she needs at this time.
[2024-06-02] VITALS (7 sets, daily range): BP systolic 111–151; BP diastolic 63–96
--- NOTE | 2024-06-02 04:00 | NUR ---
Pt is laying in bed on her side with her eyes closed. No distress noted. No complaint of pain or discomfort at this time. Bed in low position with call light within reach.
[2024-06-02 05:30] LABS: BASO% 0.2 % (0-3); EOS% 0.2 % (0-8); HEMATOCRIT 37.1 % (37.0-47.0); HEMOGLOBIN 11.5 g/dl (12.0-16.0); IMMATURE GRANULOCYTES 0.4 % (0.0-5.0); LYMPH% 12.9 % (15-41); MEAN CELL VOLUME 95.9 fL CALC (80.0-100.0); MEAN CORPUSCULAR HGB 29.7 pG CALC (26.0-32.0); MONO% 2.3 % (2-13); NEUT# 4.69 thou/uL (2.00-7.15); RED BLOOD COUNT 3.87 mill/uL (4.20-5.60); RED CELL DISTRI WIDTH 14.6 % (11.5-15.5)
[2024-06-02 05:43] LABS: INTERNATIONAL NORMALIZED RATIO 1.3 RATIO (0.7-1.3)
[2024-06-02 05:54] LABS: ALBUMIN 3.5 g/dL (3.2-5.0); BILIRUBIN, TOTAL 1.2 mg/dL (0.02-1.3); CREATININE 0.6 mg/dL (0.5-1.0); MAGNESIUM 1.8 mg/dL (1.6-2.3); TOTAL PROTEIN 7.4 g/dL (6.3-8.2)
[2024-06-02 06:11] LABS: PROTHROMBIN TIME 14.2 SECONDS (9.0-12.5)
--- NOTE | 2024-06-02 07:24 | NUR ---
PATIENT LYING ON LEFT SIDE IN BED WITH EYES CLOSED. BREATHING UNLABORED ON ROOM AIR. TELE INTACT. IV IN LEFT WRIST SL;SITE CLEAN AND INTACT. PT DENIES ANY PAIN OR N/D/V AT THIS TIME. PT DOES STATE SHE WOULD LIKE SOMETHING TO EAT;INFORMED PT OF HER NPO STATUS OF NOW. ICE CHIPS OFFERED. NO OTHER NEEDS AT THIS TIME. BED IN LOWEST POSITION. PERSONAL ITEMS WELL CALL LIGHT WITHIN REACH. POC ONGOING.
[2024-06-02] MEDS ORDERED: GABAPENTIN 300 MG/CAP PO SCH ×2 (08:00→15:00)
[2024-06-02] MEDS ORDERED: GABAPENTIN 100 MG/CAP PO SCH ×2 (08:00→15:00)
--- NOTE | 2024-06-02 10:39 | NUR ---
Preliminary blood culture ID PCR results of Streptococcus species in 1 of 2 sets called to Kiana Rivas APRN. No new orders at this time.
[2024-06-02] MEDS ORDERED: CEFEPIME HYDROCHLORIDE 2 GM in SODIUM CHLORIDE 0.9% 100 ML IV SCH (12:00)
[2024-06-02] MEDS ORDERED: LOSARTAN Potassium 50 MG/TAB PO SCH (12:00)
--- NOTE | 2024-06-02 12:18 | NUR ---
PATIENT OFF UNIT TO ULTRASOUND.
--- NOTE | 2024-06-02 16:24 | NUR ---
PATIENT LYING IN BED WATCHING TV. BREATHING UNLABORED ON ROOM AIR. TELE INTACT. IV SL;SITE CLEAN AND INTACT. PT DENIES ANY PAIN OR N/D/V AT THIS TIME. PERSONAL ITEMS AND CALL LIGHT WITHIN REACH. NO OTHER NEEDS AT THIS TIME. POC ONGOING.
--- NOTE | 2024-06-02 19:01 | NUR ---
RECEIVED PT IN BED AAOX4 AND PUENTE WITHOUT ANY DIFFICULTY. PT HAS SWELLING TO LEFT FOOT 2ND DIGIT. PT DENIES ANY PAIN AT THIS TIME. PT AMBULATING TO BATHROOM WITHOUT ANY DIFFICULTY.
--- NOTE | 2024-06-02 23:15 | NUR ---
NO CHANGE IN PT STATUS FROM PREVIOUS ASSESSMENT. CONTINUE TO MONITOR PT FOR ANY PAIN OR DISCOMFORT.
[2024-06-03] VITALS (7 sets, daily range): BP systolic 119–143; BP diastolic 65–92
--- NOTE | 2024-06-03 02:02 | NUR ---
PT C/O LEFT FOOT 2ND DIGIT TOE PAIN. PT STATES PAIN IS A 5/10 ON P[AIN SCALE. SWELLING NOTED TO AFFECTED AREA. TRAMADOL 50 MG PO GIVEN. SEE PT AUG. CONTINUE TO MONITOR PT FOR PAIN.
[2024-06-03 05:30] LABS: BASO% 0.1 % (0-3); EOS% 0.1 % (0-8); HEMATOCRIT 38.9 % (37.0-47.0); IMMATURE GRANULOCYTES 0.3 % (0.0-5.0); LYMPH% 9.7 % (15-41); MEAN CELL VOLUME 98.5 fL CALC (80.0-100.0); MEAN CORPUSCULAR HGB 30.4 pG CALC (26.0-32.0); MEAN CORPUSCULAR HGB CONC 30.8 g/dL CAL (32.0-36.0); MONO% 6.5 % (2-13); NEUT# 11.58 thou/uL (2.00-7.15); NEUT% 83.3 % (42-76); RED BLOOD COUNT 3.95 mill/uL (4.20-5.60); RED CELL DISTRI WIDTH 14.7 % (11.5-15.5)
[2024-06-03 05:37] LABS: ALBUMIN 3.9 g/dL (3.2-5.0); BILIRUBIN, TOTAL 1.2 mg/dL (0.02-1.3); CREATININE 0.7 mg/dL (0.5-1.0); POTASSIUM 3.4 mmol/l (3.5-5.1); TOTAL PROTEIN 8.2 g/dL (6.3-8.2)
[2024-06-03] MEDS ORDERED: LEVOTHYROXINE SODIUM 50 MCG/TAB PO SCH (06:00)
--- NOTE | 2024-06-03 06:00 | NUR ---
PT ASLEEP AND EASILY AROUSABLE. NO ACUTE DISTRESS NOTED ON ASSESSMENT. PT PENDING MRI THIS AM.
[2024-06-03] MEDS ORDERED: metFORMIN HYDROCHLORIDE 500 MG/TAB PO SCH (08:00)
--- NOTE | 2024-06-03 08:45 | NUR ---
PATIENT SITTING UP IN BED EATING BREAKFAST. BREATHING UNLABORED ON ROOM AIR. TELE INTACT. IV IN LEFT WRIST SL;SITE CLEAN AND INTACT. PT DENIES ANY PAIN OR N/D/V AT THIS TIME. ASSESSMENT COMPLETED. BED IN LOWEST POSITION. CALL LIGHT AND PERSONAL ITEMS WITHIN. NO OTHER NEEDS AT THIS TIME. POC ONGOING.
[2024-06-03] MEDS ORDERED: VANCOMYCIN HCL 1 GM in SODIUM CHLORIDE 0.9% 250 ML IV SCH (10:00)
--- NOTE | 2024-06-03 12:19 | NUR ---
S: SHARON YAP is a 53 F who presents with POSIPLE OSTERMYELITIS OF LEFT TOE All medications in patient's chart were reviewed. O: VS: BP 121/65, P 66, RR 20,T 96.8 F W 115 kg, HT 66IN , Scr= 0.7,CrCl= 122 ml/min TROUGH = 26 A: Blood culture PRELIMINARY SHOWS G+ COCCI IN 08/01 P: Patient is on VANCOMYCIN 1500MG IV Q8H AND [id number] IV Q8H. Vancomycin ordered for pharmacy to dose. CHANGE TO Vancomycin 1GM IV Q8H. Vancomycin trough is drawn before the 4th dose on 04/24/24 @0930. Vancomycin goal trough is between 15-20 mcg/ml. Pharmacy will follow and or advise on antibiotics use as needed.
--- NOTE | 2024-06-03 12:45 | NUR ---
PATIENT LYING IN BED WITH EYES CLOSED. BREATHING UNLABORED ON ROOM AIR. TELE INTACT. IV IN RIGHT WRIST INFUSING FLUIDS PER EMAR;SITE CLEAN AND INTACT. NO SIGNS OF PAIN OR DISTRESS NOTED. BED IN LOWEST POSITION. POC ONGOING.
--- NOTE | 2024-06-03 16:16 | NUR ---
PATIENT LYING IN BED WATCHING TV. PT DENEIS ANY PAIN OR N/D/V AT THIS TIME. PERSONAL ITEMS WELL CALL LIGHT WITHIN REACH. NO OTHER NEEDS AT THIS TIME. POC ONGOING.
--- NOTE | 2024-06-03 19:30 | NUR ---
PATIENT RECEIVED IN NURSE TO NURSE REPORT. PATIENT REMAINS STABLE WITH NO SIGNS OF DISTRESS, EDUCATED DENTAL OFFICE MANAGER LIGHT AND DEMONSTRATED UNDERSTANDING
[2024-06-04] VITALS (7 sets, daily range): BP systolic 99–141; BP diastolic 50–90
--- NOTE | 2024-06-04 02:30 | NUR ---
REVIEW OF LAB/TROUGH FOR 2AM DOSE SHOWED DISCREPENCY REQUIRING CLARIFICATION BETWEEN DOSE NEEDING TO BE HELD AND WHETHER IT WAS GIVEN AT 10AM. AT APPROX 0830, TROUGH RESULTED AT 26. PHARMACY NOTIFIED AND DOSE WAS READJUSTED FOR 1800 WITH REFLEX TO NEXT DOSE TIME, 0900AM. STAT TROUGH DRAWN TO ENSURE SAFETY - TROUGH RESULT 21, CALLED TO PHARMACY AND REVIEWED MAR WITH VENANCIO (PHARM) FOR GUIDANCE ON ADMINISTRATION OF 0200AM DOSE. PHARMACY OK TO ADMINISTER, WILL RETIME THE NEXT DOSE TO ENSURE THERAPEUTIC PARAMETERS ARE MAINTAINED AND REACHED.
--- NOTE | 2024-06-04 07:35 | NUR ---
PATIENT SITTING UP IN RECLINER WATCHING TV. BREATHING UNLABORED ON ROOM AIR. TELE INTACT. IV IN RIGHT WRIST SL;SITE CLEAN AND INTACT. PT DENIES ANY PAIN OR N/D/V AT THIS TIME. PT REQUESTED [employer] FOR A SHOWER WELL DRESSING EQUIPMENT FOR HER TOE. PT STATES SHE WILL BE DOING HER DRESSING CHANGE ON HER TOE ONCE SHE IS OUT OF THE SHOWER. NO OTHER NEEDS AT THIS TIME. CALL LIGHT WITHIN REACH. POC ONGOING.
[2024-06-04] MEDS ORDERED: VANCOMYCIN HCL 1 GM in SODIUM CHLORIDE 0.9% 250 ML IV SCH (11:30)
--- NOTE | 2024-06-04 12:08 | NUR ---
S: SHARON YAP is a 53 F who presents with OSTEOMYELITIS OF LEFT TOE. All medications in patient's chart were reviewed. O: VS: BP 133/80, P 93, RR 20,T 96.9 W 115 kg , HT 56 IN, Scr= 0.7,CrCl= 122 ml/min TROUGH=22 A: Blood culture show 2/4 STREPTOCOCCUS PYOGENES P: Patient is on VANCOMYCIN 1GM IV Q8H AND CEFEPIME 2GM IV Q8H. Vancomycin ordered for pharmacy to dose. HOLD VANCOMYCIN BY 2.5 HOURS THEN DECREASE Vancomycin TO 750MG IV Q8H. Vancomycin trough is drawn before the 4th dose on 06/05/24 @1330. Vancomycin goal trough is between 15-20 mcg/ml. Pharmacy will follow and or advise on antibiotics use as needed.
--- NOTE | 2024-06-04 12:36 | NUR ---
PATIENT SITTING UP IN RECLINER WATCHING TV. IV IN RIGHT WRIST INFUSING FLUIDS PER EMAR;SITE CLEAN AND INTACT. TELE INTACT. PT DENIES ANY PAIN OR N/D/V AT THIS TIME. PERSONAL ITEMS AND CALL LIGHT WITHIN REACH. POC ONGOING.
[2024-06-04] MEDS ORDERED: VANCOMYCIN HCL 750 MG in SODIUM CHLORIDE 0.9% 235 ML IV SCH (14:00)
[2024-06-04] MEDS ORDERED: ROPINIROLE HYDROCHLORIDE PO SCH (14:28)
[2024-06-04] MEDS ORDERED: traMADol HCL 50 MG/TAB PO PRN (14:40)
--- NOTE | 2024-06-04 16:35 | NUR ---
PATIENT SITTING UP IN RECLINER. BREATHING UNLABORED ON ROOM AIR. IV IN RIGHT WRIST SL;SITE CLEAN AND INTACT. PT DENIES ANY PAIN OR N/D/V AT THIS TIME. PT PROVIDED WITH DIET SODAS AND ICE WATER PER REQUEST. NO OTHER NEEDS AT THIS TIME. POC ONGOING. CALL LIGHT WITHIN REACH.
--- NOTE | 2024-06-04 19:10 | NUR ---
RECEIVED PT IN BED WATCHING TV. PT STABLE AND DENIES ANY PAIN OR DISCOMFORT AT THIS TIME. PT HAS BANDAGE ON LEFT FOOT. NO BLEEDING OR DRAINAGE NOTED. DSG CLEAN DRY AND INTACT. COMFORT MEASURES MAINTAINED.
--- NOTE | 2024-06-04 23:09 | NUR ---
PT C/O SEVERE PAIN TO LEFT FOOT. SWELLING NOTED TO LEFT FOOT 2ND TOE. PT STATES PAIN IS A 8/10 ON PAIN SCALE. PT MEDICATED AT THIS TIME. SEE PT EMAR.
[2024-06-05] VITALS (9 sets, daily range): BP systolic 107–129; BP diastolic 61–73
--- NOTE | 2024-06-05 01:45 | NUR ---
PT STABLE AT THIS TIME AND SLEPPING. NO ACUTE DISTRESS NOTED ON ASSESSMENT. CONTINUE TO [place] PT FOR ANY PAIN OR DISCOMFORT. COMFORT MEASURES MAINTAINED.
[2024-06-05 05:54] LABS: BASO% 0.6 % (0-3); EOS% 8.4 % (0-8); HEMATOCRIT 36.7 % (37.0-47.0); HEMOGLOBIN 11.6 g/dl (12.0-16.0); IMMATURE GRANULOCYTES 0.4 % (0.0-5.0); LYMPH% 24.1 % (15-41); MEAN CELL VOLUME 96.1 fL CALC (80.0-100.0); MEAN CORPUSCULAR HGB 30.4 pG CALC (26.0-32.0); MEAN CORPUSCULAR HGB CONC 31.6 g/dL CAL (32.0-36.0); MONO% 12.1 % (2-13); NEUT# 3.8 thou/uL (2.00-7.15); NEUT% 54.4 % (42-76); RED BLOOD COUNT 3.82 mill/uL (4.20-5.60); RED CELL DISTRI WIDTH 14.4 % (11.5-15.5)
[2024-06-05 06:01] LABS: ALBUMIN 3.5 g/dL (3.2-5.0); BILIRUBIN, TOTAL 0.9 mg/dL (0.02-1.3); CREATININE 0.6 mg/dL (0.5-1.0); MAGNESIUM 1.8 mg/dL (1.6-2.3); POTASSIUM 3.2 mmol/l (3.5-5.1); TOTAL PROTEIN 7.3 g/dL (6.3-8.2)
--- NOTE | 2024-06-05 11:36 | NUR ---
Patient lying in bed quietly. Patient drowsy and slow to arouse requesting Percocet and IV Morphine.
--- NOTE | 2024-06-05 13:06 | NUR ---
Patient requesting PICC line.
--- NOTE | 2024-06-05 14:19 | NUR ---
S: SHARON YAP is a 53 F who presents with LEFT 2ND TOE OSTEOMYELITIS. O: VS: BP 115/73, P 97, RR 18 ,T 97.5 W 115 kg, HT 66 IN, Scr= 0.6,CrCl= 120 ml/min A: Repeat blood culture is pending. P: Patient is on Vancomycin and Cefepime. Vancomycin ordered for pharmacy to dose. Vancomycin trough on 06/05 1330 resulted at 18 mcg/ml. Continue Vancomycin 750 mg IV Q8H. Vancomycin trough is drawn before the 4th dose on 06/06 1330. Vancomycin goal trough is between <15-20 mcg/ml>. Pharmacy will follow and or advise on antibiotics use as needed.
--- NOTE | 2024-06-05 18:45 | NUR ---
Patient lying in bed with no discomfort.
--- NOTE | 2024-06-05 19:55 | NUR ---
PT SITTING UP ON THE BED WATCHING TV AT THIS TIME. ALERT AND ORIENTED X3. CLEAR LUNG SOUNDS TO AUSCULTATION. RESPS ARE EVN AND UNLABORED. BILATERAL LEGS WITH EDEMA +1 AND REDDISH AT THIS TIME. DRESSING NOTED ON THE LEFT FOOT. ABDOEMEN IS SOFT AND ACTIVE BOWEL SOUNDS ON AUCULTATION. TELE MONITOR #15 WITH SR-93 SHOWING AT THIS TIME. 20 G IV ON L FOREARM FLUSHED WITH 5 CC- APPEARS CLEAN AND HELATHY WITHUT ANY ABNORMALITIES. ENCOURAGED TO CALL FOR ASSISTANCE. CALL LIGHT IN REACH AND SAFETY PRECAUTIONS ON PLACE.
[2024-06-05] MEDS ORDERED: SODIUM CHLORIDE 0.9% 250 ML IV ONE (21:44)
[2024-06-06] VITALS (17 sets, daily range): BP systolic 103–143; BP diastolic 46–97
--- NOTE | 2024-06-06 00:17 | NUR ---
PT LAYING ON BED IN SUPINE POSIITON WITH EYES CLOSED. VREATHING IS EVEN AND UNLABORED. NO SIGNS OF DISTRESS NOTED AT THIS TIME. CALL LIGHT IN REACH AND SAFETY PRECAUTIONS ON PLACE.
[2024-06-06 02:44] LABS: BASO% 0.6 % (0-3); EOS% 10.2 % (0-8); HEMATOCRIT 36.5 % (37.0-47.0); HEMOGLOBIN 11.3 g/dl (12.0-16.0); IMMATURE GRANULOCYTES 0.1 % (0.0-5.0); LYMPH% 32.2 % (15-41); MEAN CELL VOLUME 95.8 fL CALC (80.0-100.0); MEAN CORPUSCULAR HGB 29.7 pG CALC (26.0-32.0); MONO% 12.5 % (2-13); NEUT# 3.13 thou/uL (2.00-7.15); NEUT% 44.4 % (42-76); RED BLOOD COUNT 3.81 mill/uL (4.20-5.60); RED CELL DISTRI WIDTH 14.5 % (11.5-15.5)
[2024-06-06 02:53] LABS: ALBUMIN 3.5 g/dL (3.2-5.0); BILIRUBIN, TOTAL 0.8 mg/dL (0.02-1.3); CREATININE 0.7 mg/dL (0.5-1.0); MAGNESIUM 1.9 mg/dL (1.6-2.3); POTASSIUM 3.7 mmol/l (3.5-5.1); TOTAL PROTEIN 7.3 g/dL (6.3-8.2)
--- NOTE | 2024-06-06 04:40 | NUR ---
PT RESTING ON BED WITH EYES CLOSED AT THIS TIME. RESPS ARE EVEN AND UNLABORED. CEFEPINE ANTIOBITC INFUSING AT THIS TIME AT 200 VIA LEFT FOREARM. CALL LIGHT IN REACH AND SAFETY PRECAUTIONS ON PLACE.
--- NOTE | 2024-06-06 06:15 | NUR ---
PATIENT RESTING IN BED AT THIS TIME. PATIENT IS NPO FOR PROCEDURE TO LEFT FOOT ULCER BY DR. JASSO. PRE-OP CHECK LIST ON CHART. CALL LIGHT IN REACH. WILL CONT TO MONITOR.
--- NOTE | 2024-06-06 06:39 | NUR ---
PT IS AOX4, RESPIRATIONS ARE EVEN AND UNLABORED, LUNGS CLEAR. BOWEL SOUNDS ACTIVE, PEDAL PULSES IN RIGHT FOOT PALPABLE TO TOUCH, PT REPORT PAIN AT A 4 ON A 0-10 PAIN SCALE IN LEFT TOE.
--- NOTE | 2024-06-06 06:55 | NUR ---
PT LEFT THE FLOOR [facility] STAFF TRANSPORT FOR SX.
[2024-06-06] MEDS ORDERED: SODIUM CHLORIDE 0.9% 1,000 ML IV ONE (07:04)
[2024-06-06] MEDS ORDERED: FAMOTIDINE 10MG/ML 2ML SDV IV ONE (07:14)
[2024-06-06] MEDS ORDERED: BUPIVACAINE HCL PF 0.5% 30 ML VIAL ONE (08:23)
[2024-06-06] MEDS ORDERED: STERILE WATER FOR IRRIGATION 1,000 ML BTL IR ONE (08:23)
[2024-06-06] MEDS ORDERED: ACETAMINOPHEN 100 ML IV ONE (08:32)
--- NOTE | 2024-06-06 09:11 | NUR ---
PT RETURNED TO UNIT FROM SX, RESPIRATIONS ARE EVEN AND UNLABORED ON ROOM AIR, LEFT DRESSING WITH SOME SHADOWING NOTED, FOOT ELEVATED ON 2 PILLOWS, LEFT GREAT TOE IS BLANCHABLE, BOWEL SOPUNDS ARE HYPOACTIVE AT THIS TIME, DISCUSSED WAITING BOWELS TO BECOME MORE ACTIVE BEFORE RESTARTING DIET ORDER, PT DENIES PAIN AT THIS TIME.
[2024-06-06] MEDS ORDERED: KETAMINE HCL 50 MG/ML 10 ML VIAL IV ONE (09:56)
[2024-06-06] MEDS ORDERED: LIDOCAINE HCL 2% 2ML SDV IV ONE (09:56)
[2024-06-06] MEDS ORDERED: PROPOFOL 200 MG/20 ML VIAL IV ONE (09:56)
[2024-06-06] MEDS ORDERED: PHENYLEPHRINE HCL 10 MG/ML VIAL IV ONE (09:56)
--- NOTE | 2024-06-06 10:30 | NUR ---
pt yelling in room, when nurse entered room pt sitting up on commode with a pool of blood on floor under foot. assisted pt back to bed, removed wet boot, wet dressing to assess site, surtures intact, replaced dressing with 4x4, abd dresing, and kurlex. pt bp at 142/84, hr 89 o2 at 97%
--- NOTE | 2024-06-06 10:46 | NUR ---
elevated pts foot on 2 pillows and instructed pt not to get up out of bed.
--- NOTE | 2024-06-06 10:50 | NUR ---
call placed to dr marquez to notify of pts status.
--- NOTE | 2024-06-06 11:50 | NUR ---
PT DRESSING STILL CLEAN, DRY, INTACT, NO SHADOWING AT THIS TIME WITH FOOT ELEVATED ON 2 PILLOWS.
--- NOTE | 2024-06-06 14:54 | NUR ---
S: SHARON YAP is a 53 F who presents with osteomyelitis. O: VS: BP 117/73, P 98, RR 20,T 97.2 W 102.8 kg, HT 66 in, Scr= 0.7,CrCl= 120 ml/min> A: Blood and wound cultures are pending. P: Patient is on Vancomycin and Cefepime. Vancomycin ordered for pharmacy to dose. Vancomycin trough on 06/06 resulted at 20 mcg/ml. It was drawn 2 hours early at 1130 instead of 1330. Continue Vancomycin 750 mg IV Q8H. Vancomycin trough is drawn before the 4th dose on 06/07 1330. Vancomycin goal trough is between <15-20 mcg/ml>. Pharmacy will follow and or advise on antibiotics use as needed.
--- NOTE | 2024-06-06 15:41 | NUR ---
PT RESTING COMPFRTABLY AT THIS TIME WITH LEFT FOOT ELEVATED UP ON 2 PILLOWS, DRESSING REMAINS CLEAN, DRY, INTACT, NO SHADOWING NOTED AT THIS TIME.
--- NOTE | 2024-06-06 19:40 | NUR ---
PT SITTING UP ON THE BED. ALERT AND ORIENTED X3. RESPS ARE EVEN AND UNLABORED. NO SIGNS OF DISTRESS NOTED. TELE MONITOR #[address] SHOWING SR93 AT THIS TIME. PT WAS INTRUCTED TO HAVE HER LEFT FOOT ELEVATTED WITH 2 PILLOWS-DEMOSTRATES UNDERSTANDING. DRESSING NOTED ON HER LEEFT FOOT. LUNG SOUNDS CLEAR TO AUSCULTATION. INSTRUCTED TO CALL FOR ASSISTANCE IF NEEDED. CALL LIGHT IN REACH AND SAFETY PRECAUTIONS ON PLACE.
[2024-06-07] VITALS (11 sets, daily range): BP systolic 125–147; BP diastolic 62–93
--- NOTE | 2024-06-07 00:24 | NUR ---
PT ORDERED DOORDASH. SHE IS EATING THE FOOD SHE ORDERED AT THIS MOMENT. PT WAS INFORMED THAT SHE SHOULD NOT HAVE THAT KIND OF FOOD BECAUSE HER BLOOD SUGAR IS BEING CONTROLLED. WILL CONTINUE TO MONITOR. RESPS ARE EVEN AND UNLABORED AT THIS TIME. DRESSING ON HER LEFT FOOT APPEAR DRY, CLEAN AND INTACT WITH NO SIGNS OF DRAINAGE. VANCO INFUSING AT THIS TIME VIA LEFT FOREARM AT 125ML. CALL LIGHT IS IN REACH AND SAFETY PRECAUTIONS ON PLACE.-
--- NOTE | 2024-06-07 03:54 | NUR ---
PT RESTING ON BED. CEFEPINE ANTIBIOTIC INFUSING VIA LEFT FOREARM AT THIS TIME. RESPS ARE EVEN AND UNLABORED. LEFT TOE ELEVATED UO ON 2 PILLOWS. TELE MONITOR SHOWING SR-94 AT THIS TIME. CALL LIGHT IN REACH AND SAFETY PRECAUTIONS ON PLACE.
[2024-06-07 05:40] LABS: BASO% 0.5 % (0-3); EOS% 9.2 % (0-8); HEMATOCRIT 36.6 % (37.0-47.0); HEMOGLOBIN 11.1 g/dl (12.0-16.0); IMMATURE GRANULOCYTES 0.1 % (0.0-5.0); LYMPH% 19.4 % (15-41); MEAN CELL VOLUME 98.9 fL CALC (80.0-100.0); MEAN CORPUSCULAR HGB CONC 30.3 g/dL CAL (32.0-36.0); MONO% 11.2 % (2-13); NEUT# 4.47 thou/uL (2.00-7.15); NEUT% 59.6 % (42-76); RED BLOOD COUNT 3.7 mill/uL (4.20-5.60); RED CELL DISTRI WIDTH 14.5 % (11.5-15.5)
[2024-06-07 05:49] LABS: ALBUMIN 3.4 g/dL (3.2-5.0); BILIRUBIN, TOTAL 0.9 mg/dL (0.02-1.3); CREATININE 0.6 mg/dL (0.5-1.0); MAGNESIUM 1.8 mg/dL (1.6-2.3); POTASSIUM 3.9 mmol/l (3.5-5.1); TOTAL PROTEIN 7.1 g/dL (6.3-8.2)
--- NOTE | 2024-06-07 07:14 | NUR ---
PATIENT LYING IN BED WITH EYES CLOSED RESTING. BREATHING UNLABORED ON ROOM AIR. IV IN LFA INFUSING FLUIDS PER EMAR;SITE CLEAN AND INTACT. TELE INTACT. NO SIGNS OF DISTRESS OR PAIN NOTED. BED IN LOWEST POSIITON. PERSONAL ITEMS WELL CALL LIGHT WITHIN REACH. BCS AT BEDSIDE. NO NEEDS AT THIS TIME. POC ONGOING.
[2024-06-07] MEDS ORDERED: FUROSEMIDE 40 MG/TAB PO SCH (10:00)
--- NOTE | 2024-06-07 12:29 | NUR ---
PATIENT LYING IN BED WITH EYES CLOSED RESTING. BREATHING UNLABORED ON ROOM AIR. TELE INTACT. IV IN LFA INFUSING FLUIDS PER EMAR;SITE CLEAN AND INTACT. NO SIGNS OF DISTRESS OR PAIN NOTED. BED IN LOWEST POSITION. CALL LIGHT WITHIN REACH WELL PERSONAL ITEMS. NO OTHER NEEDS AT THIS TIME.POC ONGOING.
--- NOTE | 2024-06-07 14:19 | NUR ---
S: SHARON YAP is a 53 F who presents with left foot 2nd and 3rd digit osteomyelitis. O: VS: BP 128/82, P 93, RR 20, T 97.3 W 102.8 kg, HT 66 in, Scr=0.6, CrCl= 134.3 ml/min Vancomycin trough level 06/07@1314 = 14 A: Blood culture is growing Group A Streptococcus pyogenes in both sets. Wound culture is pending. Vancomycin trough level slightly subtherapeutic, AUC 405. Increase in dose is warranted. P: Patient is on cefepime 2 g IV q8h and vancomycin 750 mg IV q8h. Vancomycin ordered for pharmacy to dose. Increase Vancomycin to 1250 mg IV Q12H. Vancomycin trough is drawn before the 4th dose on 06/09@0930. Vancomycin goal trough is between 15-20 mcg/ml. Pharmacy will follow and or advise on antibiotics use as needed.
--- NOTE | 2024-06-07 16:18 | NUR ---
PATIENT LYING IN BED WITH EYES CLOSED RESTING. BREATHING UNLABORED ON ROOM AIR. TELE INTACT. IV IN LFA SL;SITE CLEAN AND INTACT. NO SIGNS OF DISTRESS OR PAIN NOTED. BED IN LOWEST POSITION. CALL LIGHT AND PERSONAL ITEMS WITHIN REACH. POC ONGOING.
--- NOTE | 2024-06-07 19:44 | NUR ---
Pt is alert and orient. Pt is ablet to make needs known. Assessment complete. Pt is laying on her back with her left foot eleveated on pillows. Pt is breathing even and non-labored on room air. Pt showing no s/s of pain or distress at this time. Bed remains in low position with call light within reach.
[2024-06-07] MEDS ORDERED: VANCOMYCIN HCL 1,250 MG in SODIUM CHLORIDE 0.9% 225 ML IV SCH (22:00)
--- NOTE | 2024-06-07 23:46 | NUR ---
Pt is laying in bed with her eyes closed. Pt has her left foot elevated on 2 pillows. Dressing remains clean dry and intact. Pt given PRN pain medication for Left foot pain. Breathing remains even and unlabored. Bed in low position with call light within reach.
[2024-06-08] VITALS (7 sets, daily range): BP systolic 115–149; BP diastolic 61–99
--- NOTE | 2024-06-08 03:55 | NUR ---
Pt is laying in bed with her eyes closed. No s/s of distress noted. No complaints of pain at this time. Pt left foot remains eleveated on 2 pillows. Dressing to left foot remains CDI. Left foot boot remains in place. Bed in low position with call light within reach.
--- NOTE | 2024-06-08 06:56 | NUR ---
PATIENT LYING IN BED WATCHING TV. BREATHING UNLABORED ON ROOM AIR. TELE INTACT. IV IN LFA SL;SITE CLEAN AND INTACT. PT STATES TO HAVE SOME PAIN;MEDICATION REVIEWED. DENIES ANY N/D/V AT THIS TIME. PT STATES SHE'S FEELING ANXIOUS AND WOULD LIKE SOMETHING FOR ANXIETY;MEDICATION ADMINISTERED PER EMAR. NO OTHER NEEDS AT THIS TIME. ASSESSMENT COMPLETED. DRESSING ON LEFT FOOT C/D/I AND ELEVATED ON 2 PILLOWS. BED IN LOWEST POSITION. CALL LIGHT WITHIN REACH. POC ONGOING.
[2024-06-08 10:59] LABS: BASO% 0.6 % (0-3); EOS% 8.6 % (0-8); HEMATOCRIT 37.1 % (37.0-47.0); HEMOGLOBIN 11.2 g/dl (12.0-16.0); IMMATURE GRANULOCYTES 0.1 % (0.0-5.0); LYMPH% 20.9 % (15-41); MEAN CELL VOLUME 98.1 fL CALC (80.0-100.0); MEAN CORPUSCULAR HGB 29.6 pG CALC (26.0-32.0); MEAN CORPUSCULAR HGB CONC 30.2 g/dL CAL (32.0-36.0); MONO% 10.1 % (2-13); NEUT# 4.59 thou/uL (2.00-7.15); NEUT% 59.7 % (42-76); RED BLOOD COUNT 3.78 mill/uL (4.20-5.60); RED CELL DISTRI WIDTH 14.6 % (11.5-15.5)
[2024-06-08 11:11] LABS: ALBUMIN 3.6 g/dL (3.2-5.0); CREATININE 0.5 mg/dL (0.5-1.0); POTASSIUM 4.6 mmol/l (3.5-5.1); TOTAL PROTEIN 7.2 g/dL (6.3-8.2)
--- NOTE | 2024-06-08 12:06 | NUR ---
PATIENT LYING IN BED WATCHING TV. BREATHING UNLABORED ON ROOM AIR. TELE INTACT. LIBRA PICC INFUSING ANTIBIOTIC PER EMAR;SITE CLEAN AND INTACT. PT STATES TO BE IN SOME PAIN;MEDICATION REVIEWED. DENIES ANY N/D/V AT THIS TIME. BED IN LOWEST POSITION. CALL LIGHT AND PERSONAL ITEMS WITHIN REACH. POC ONGOING.
--- NOTE | 2024-06-08 16:13 | NUR ---
PATIENT LYING IN BED WITH EYES CLOSED RESTING. BREATHING UNLABORED ON ROOM AIR. TELE INTACT. LIBRA PICC SL;SITE CLEAN AND INTACT. NO SIGNS OF DISTRESS OR PAIN NOTED. BED IN LOWEST POSITION. PERSONAL ITEMS WELL CALL LIGHT WITHIN REACH. POC ONGOING.
--- NOTE | 2024-06-08 19:35 | NUR ---
Pt is alert and orient and able to make needs known. Family is in the room at bedside. Left foot is elevated on pillows for comfort. Dressing remains clean dry and intact. No complaints of pain or discomfort at this time. No s/s of distress noted. Bed in low position with call light within reach.
--- NOTE | 2024-06-08 23:55 | NUR ---
Pt is laying on her back with her eyes closed. No distress noted. NO complaint of pain or discomfort. Left leg remains elevated on 2 pillows for comfort. Safety measures remain in place with call light within reach.
[2024-06-09 03:52] VITALS: BP 121/69
--- NOTE | 2024-06-09 04:30 | NUR ---
Pt is resting comfortably at this time. No complaints of pain or discomfort. No distress noted. Breathing remains even and non-labored. Bed in low position with call light within reach.
[2024-06-09 05:57] LABS: BASO% 0.8 % (0-3); EOS% 8.5 % (0-8); HEMATOCRIT 37.7 % (37.0-47.0); HEMOGLOBIN 11.4 g/dl (12.0-16.0); IMMATURE GRANULOCYTES 0.3 % (0.0-5.0); LYMPH% 21.1 % (15-41); MEAN CELL VOLUME 98.7 fL CALC (80.0-100.0); MEAN CORPUSCULAR HGB 29.8 pG CALC (26.0-32.0); MEAN CORPUSCULAR HGB CONC 30.2 g/dL CAL (32.0-36.0); MONO% 10.9 % (2-13); NEUT# 4.33 thou/uL (2.00-7.15); NEUT% 58.4 % (42-76); RED BLOOD COUNT 3.82 mill/uL (4.20-5.60); RED CELL DISTRI WIDTH 14.5 % (11.5-15.5)
[2024-06-09 06:31] LABS: ALBUMIN 3.6 g/dL (3.2-5.0); BILIRUBIN, TOTAL 0.8 mg/dL (0.02-1.3); CREATININE 0.5 mg/dL (0.5-1.0); MAGNESIUM 1.9 mg/dL (1.6-2.3); POTASSIUM 4.8 mmol/l (3.5-5.1); TOTAL PROTEIN 7.3 g/dL (6.3-8.2)
[2024-06-09 06:54] VITALS: BP 115/75
--- NOTE | 2024-06-09 07:40 | NUR ---
PT IS AOX4, RESPIRATIONS ARE EVEN AND UNLABORED ON ROOM AIR, LUNGS ARE CLEAR, RIGHT PEDAL PULSES IS PALPABLE TOUCH, LEFT FOOT DRESSING IS CLEAN, DRY, INTACE, LEFT GREAT TOE IS BLANCHABLE.
--- NOTE | 2024-06-09 09:30 | NUR ---
patient assisted to recliner.
--- NOTE | 2024-06-09 09:53 | NUR ---
NAILA ALVAREZ SENT TO LAB.
[2024-06-09] MEDS ORDERED: INSULIN GLARGINE 100 UNITS/ML SC SCH (10:00)
--- NOTE | 2024-06-09 10:00 | NUR ---
PT SITTING UP IN CHAIR AFTER GETTING CLEANED UP BY TECH, PT IS SMILING AND IN GOOD SPIRITS AT THIS TIME.
--- NOTE | 2024-06-09 10:17 | NUR ---
PT RETURNING TO BED, PROVIDED PRN PAIN MEDICATION FOR LEFT FOOT PAIN REPORTED BURNING AND SHARP PAIN AT A 7 ON A 0-10 PAIN SCALE.
[2024-06-09 10:41] VITALS: BP 128/74
[2024-06-09] MEDS ORDERED: CEFTRIAXONE2 GM IV (13:28)
[2024-06-09] MEDS ORDERED: VANCOMYCIN1250 MG/25 IV (13:28)
--- NOTE | 2024-06-09 14:22 | NUR ---
S: SHARON YAP is a 53 F who presents with OSTEOMYELITIS POST SURGERY. She has a history of CHF, RESTLESS LEG SYNDROME, HYPERTENSION, CIRRHOSIS, AND DIABETES . All medications in patient's chart were reviewed. O: VS: BP 128/74, P 81, RR 18,T 96.5 F W 102kg, HT 66 IN, Scr= 0.5,CrCl= 133ml/min TROUGH=13 A: Blood culture SHOWS STREPTOCOCCUS PYOGENES WOUND CULTURE SHOWS MRSA SUSCEPTABLE TO VANCOMYCIN P: Patient is on VANCOMYCIN 1250MG IV Q12H AND CEFTRIAXONE 2GM IV Q24H. Vancomycin ordered for pharmacy to dose. CONTINUE Vancomycin 1250MG IV Q12H. Vancomycin trough is drawn before the 4th dose on 06/10/24 @2130. Vancomycin goal trough is between 10-15 mcg/ml. Pharmacy will follow and or advise on antibiotics use as needed.
[2024-06-09 14:36] VITALS: BP 127/73
[2024-06-09] MEDS ORDERED: cefTRIAXone SODIUM 2 GM in SODIUM CHLORIDE 0.9% 100 ML IV SCH (15:00)
[2024-06-09 19:02] VITALS: BP 102/65
--- NOTE | 2024-06-09 19:55 | NUR ---
PT RESTING ON BED. ALERT AND ORIENTED X3. 4/10 ON PAIN SCALE ON HER LEFT FOOT. DRESSING ON HER LEFT FOOT APPEARS CLEAN, DRY AND INTACT WITHOUT ANY DRAINAGE NOTED AT THIS TIME. PALAPABLE WEAK PEDAL PULSES. TRACE EDEMA NOTED ON LOWER EXTREMITIES WITH REDDISH SKIN AT THIS MOMENT. DENIES ANY ADDITIONAL NEEDS. CALL LIGHT IN REACH AND SAFETY PRECAUTIONS ON PLACE.
[2024-06-09 21:59] VITALS: BP 97/46
--- NOTE | 2024-06-09 23:55 | NUR ---
PT RESTING ON BED. RESPS EVEN AND UNLABORED. LEFT FOOT REMAINS ELEVATED ON 2 PILLOWS. TELE MONITOR SHOWING SR-96 AT THIS TIME. CALL LIGHT ON REACH AND SAFETY PRECAUTIONS ON PLACE.
[2024-06-10 03:26] VITALS: BP 107/52
--- NOTE | 2024-06-10 04:00 | NUR ---
PT RESTING ON SUPINE POSITION. RESPS EVEN AND UNLABORED. LEFT FOOT REMAINS ELEVATED ON 2 PILLOS. DRESSING ON THE LEFT FOOT REMAINS CLEAN. DRY AND INTACT AT THIS TIME. NO SIGNS OF DISTRESS NOTED. TELE MONITOR ON PLACE RUNNING SR WITH RBBB-90 AT THIS TIME. CALL LIGHT ON REACH AND SAFETY PRECAUTIONS ON PLACE.
[2024-06-10 04:39] VITALS: BP 122/67
--- NOTE | 2024-06-10 05:17 | NUR ---
BLOOD DRWAN AT THIS MOMENT VIA RIGHT UPPER ARM PICC LINE WITH GOOD BLOOD RETURN AND FLUSHED WITH NS. SALINE LOCK LOCKED AT THIS TIME. CALL LIGHT IN REACH AND SAFETY PRECAUTIONS ON PLACE.
[2024-06-10 05:42] LABS: BASO% 0.8 % (0-3); EOS% 9.2 % (0-8); HEMATOCRIT 36.1 % (37.0-47.0); IMMATURE GRANULOCYTES 0.3 % (0.0-5.0); MEAN CELL VOLUME 98.9 fL CALC (80.0-100.0); MEAN CORPUSCULAR HGB 30.1 pG CALC (26.0-32.0); MEAN CORPUSCULAR HGB CONC 30.5 g/dL CAL (32.0-36.0); NEUT# 3.84 thou/uL (2.00-7.15); NEUT% 58.7 % (42-76); RED BLOOD COUNT 3.65 mill/uL (4.20-5.60); RED CELL DISTRI WIDTH 14.4 % (11.5-15.5)
[2024-06-10 06:01] LABS: ALBUMIN 3.3 g/dL (3.2-5.0); BILIRUBIN, TOTAL 0.6 mg/dL (0.02-1.3); CREATININE 0.5 mg/dL (0.5-1.0); MAGNESIUM 1.7 mg/dL (1.6-2.3); POTASSIUM 4.6 mmol/l (3.5-5.1); TOTAL PROTEIN 6.7 g/dL (6.3-8.2)
[2024-06-10 06:34] VITALS: BP 95/47
--- NOTE | 2024-06-10 07:15 | NUR ---
PT IS AOX4, RESPIRATIONS ARE EVEN AND UNLABORED ON ROOM AIR, LUNGS ARE CLEAR THROUGHT, BOWEL SOUNDS ARE ACTIVE, DRESSING ON LEFT FOOT OS CLEAN, DRY, INTACT, LEFT GREAT TOW IS BLANCHABLE, PEDAL PULSES IN RIGHT FOOT IS PALPABLE TO TOUCH. PT REPORTS PAIN "GOOD RIGHT NOW"
--- NOTE | 2024-06-10 11:56 | NUR ---
PT SITTING UP IN BED WITH LEFT FOOT ELEVATED ON 2 PILLOWS. PT MEDICATED WITH ORDERED PRN PAIN MEDICATION AFTER REPORTING A PAIN LEVEL OF 8 ON A 0-10 PAIN SCALE IN LEFT FOOT.
[2024-06-10 15:29] VITALS: BP 107/54
[2024-06-10 19:06] VITALS: BP 101/58
--- NOTE | 2024-06-10 19:40 | NUR ---
PT SITTING UP ON THE BED WATCHING TV AT THIS TIME. ALERT AND ORIENTED. BREATHING IS EVEN AND UNLABORED. NO SIGNS OF DITRESS NOTED. LEFT FOOT REMAINS ELEVATED ON 2 PILLOWS AT THIS MOMENT WITH DRY, INTACT AND CLEAN DRESSING. 6/10 ON PAIN SCALE-QUESTED SOME PAIN MED. PALPABLE WEAK PEDAL PULSES. TELE ON PLACE ORDERED. PICC LINE REMAINS INTACT WITHOUT ANY ABNORMALITIES. INSTRCUTED TO CALL FOR ASSISTANCE IF NEEDED. CALL LIGHT IN REACH AND SAFETY PRECAUTIONS ON PLACE.
[2024-06-10 20:29] VITALS: BP 112/70
--- NOTE | 2024-06-10 21:00 | NUR ---
BLOOD DRAWN AT THIS TIME FOR LAB-VANCO THROUGH VIA RIGHT UPPER ARM PICC LINE WITH GOOD BLOOD RETURN AND FLUSHED WITH NS AT THIS TIME. CALL LIGHT IN REACH AND SAFETY PRECAUTIONS ON PLACE.
[2024-06-11 00:02] VITALS: BP 109/69
--- NOTE | 2024-06-11 00:47 | NUR ---
PT RESTING ON SUPINE POSITION WITH THE LEFT FOOT ELEVATED AT THIS TIME. RESPS ARE EVEN AND UNLABORED. TELE MONITOR ON PLACE SHOWING SR WITH RBBB AT THIS TIME. LEFT FOOT DRESSING REMAINS INTAC. CALL LIGHT IN REACH AND SAFETY PRECAUTIONS ON PLACE.
[2024-06-11 04:37] VITALS: BP 121/82; BP 132/69
--- NOTE | 2024-06-11 04:41 | NUR ---
PT IS WATCHING TV AT THIS TIME WITH LEFT FOOT ELVATED ON 2 PILLOWS. RESPS ARE EVEN AND UNLABORED. BLOOD DRAWN AT THIS TIME VIA RIGHT UPPER ARM PICC LINE WITH GOOD BLOOD RETURN AND FLUSHED WITH NS AT THIS TIME. CALL LIGHT IN REACH AND SAFETY PRECAUTIONS ON PLACE
[2024-06-11 05:19] LABS: BASO% 0.8 % (0-3); EOS% 7.7 % (0-8); HEMATOCRIT 37.9 % (37.0-47.0); HEMOGLOBIN 11.5 g/dl (12.0-16.0); IMMATURE GRANULOCYTES 0.2 % (0.0-5.0); LYMPH% 21.2 % (15-41); MEAN CELL VOLUME 96.9 fL CALC (80.0-100.0); MEAN CORPUSCULAR HGB 29.4 pG CALC (26.0-32.0); MEAN CORPUSCULAR HGB CONC 30.3 g/dL CAL (32.0-36.0); MONO% 11.3 % (2-13); NEUT# 4.92 thou/uL (2.00-7.15); NEUT% 58.8 % (42-76); RED BLOOD COUNT 3.91 mill/uL (4.20-5.60); RED CELL DISTRI WIDTH 14.3 % (11.5-15.5)
[2024-06-11 05:32] LABS: ALBUMIN 3.7 g/dL (3.2-5.0); BILIRUBIN, TOTAL 0.8 mg/dL (0.02-1.3); POTASSIUM 4.7 mmol/l (3.5-5.1); TOTAL PROTEIN 7.3 g/dL (6.3-8.2)
[2024-06-11 05:37] LABS: CREATININE 0.5 mg/dL (0.5-1.0)
--- NOTE | 2024-06-11 07:00 | NUR ---
SHIFT CHANGE REPORT, PT AWAKE ALERT AND ORIENTED SITTING UP IN RECLINER, C/O LRFT FOOT PAIN @ 5/10 BUT REFUSED PAIN MED, LEFT FOOT DRESSING CDI WITH SURGICAL SHOE IN PLACE, CALL CARDONA IN REACH AND BED LOCKED IN LOWEST POSITION.
[2024-06-11 08:07] VITALS: BP 131/81
[2024-06-11] MEDS ORDERED: INSULIN GLARGINE 100 UNITS/ML SC SCH (09:00)
--- NOTE | 2024-06-11 10:59 | NUR ---
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 O: VS: BP 131/81, P 99, RR 21, T 97 W 102.3 kg, HT 66 in, Scr=0.5, CrCl= 134 ml/min Vancomycin trough 06/10@2102 = 12 A: Vancomcyin trough level within therapeutic goal range of 10-15. No change in dose warranted at this time. P: Patient is on ceftriaxone 2 g IV q24h and vancomycin 1250 mg IV q12h. Vancomycin ordered for pharmacy to dose. Continue Vancomycin 1250 mg IV Q12H. Vancomycin trough is drawn before the dose on 06/13/24@0930. Vancomycin goal trough is between 10-15 mcg/ml. Pharmacy will follow and or advise on antibiotics use as needed.
--- NOTE | 2024-06-11 12:00 | NUR ---
SITTING UP IN RECLINER, C/O PAIN TO LEFT FOOT BUT REFUSES ANALGESIC AT THIS TIME.
--- NOTE | 2024-06-11 16:00 | NUR ---
RESTING IN BED, PAIN CONCERN ADDRESSED.
[2024-06-11 18:24] VITALS: BP 118/72
[2024-06-11 18:47] VITALS: BP 118/72
--- NOTE | 2024-06-11 20:15 | NUR ---
PT RESTING IN BED NO DISTRESS NOTED ON ASSESSMENT. PT REPORTS FEELING COMFORTABLE AT THIS TIME. PICC LINE FLUSHED WORKING PROPERLY. LEFT FOOT DRESSING INTACT NO DRAINAGE NOTED. LEFT LEG ELEVATED WITH TWO PILLOWS. CALL LIGHT WITHIN REACH. PLAN OF CARE ONGOING.
[2024-06-11] MEDS ORDERED: ROPINIROLE HYDROCHLORIDE PO SCH (21:00)
[2024-06-12] VITALS (9 sets, daily range): BP systolic 97–136; BP diastolic 57–83
--- NOTE | 2024-06-12 | NUR ---
PT RESTING NO DISTRESS NOTED ON EXAM. PICC FLUSHE AND SL WORKING PROPERLY. CALL LIGHT WITHIN REACH. PLAN OF CARE ONGOING.
--- NOTE | 2024-06-12 04:45 | NUR ---
PT RESTING NO DISTRESS NOTED ON EXAM. CALL LIGHT WITHIN REACH. PLAN OF CARE ONGOING. LEFT FOOT DRESSING INTACT WITH TWO PILLOW UNDER HER LEG.
[2024-06-12 05:46] LABS: BASO% 1.2 % (0-3); EOS% 7.9 % (0-8); HEMATOCRIT 39.4 % (37.0-47.0); IMMATURE GRANULOCYTES 0.1 % (0.0-5.0); LYMPH% 25.9 % (15-41); MEAN CELL VOLUME 96.3 fL CALC (80.0-100.0); MEAN CORPUSCULAR HGB 29.3 pG CALC (26.0-32.0); MEAN CORPUSCULAR HGB CONC 30.5 g/dL CAL (32.0-36.0); NEUT# 3.95 thou/uL (2.00-7.15); NEUT% 54.9 % (42-76); RED BLOOD COUNT 4.09 mill/uL (4.20-5.60); RED CELL DISTRI WIDTH 14.2 % (11.5-15.5)
[2024-06-12 05:57] LABS: ALBUMIN 3.7 g/dL (3.2-5.0); BILIRUBIN, TOTAL 0.7 mg/dL (0.02-1.3); CREATININE 0.5 mg/dL (0.5-1.0); POTASSIUM 4.7 mmol/l (3.5-5.1); TOTAL PROTEIN 7.5 g/dL (6.3-8.2)
--- NOTE | 2024-06-12 07:40 | NUR ---
SHIFT CHANGE REPORT, PT AWAKE ALERT AND ORIENTED SITTING UP IN BED, NO C/O DISCOMFORT, DRESSING TO LEFT FOOT IN PLACE, CALL CARDONA IN REACH AND BED LOCKED IN LOWEST POSITION.
[2024-06-12] MEDS ORDERED: HYDROcodone 5 MG/Acetaminophen 325 MG/COMBO PO PRN ×2 (08:35→09:12)
--- NOTE | 2024-06-12 10:00 | NUR ---
PT HAS BEEN IN BR FOR LAST45 MINS, JUST CHECKED ON HER, SHE SAID SHE IS NOW FIXING TO GET IN THE SHOWER. NURSE STILL WAITING TO ADMINISTER MEDS.
--- NOTE | 2024-06-12 11:25 | NUR ---
JUST GOT OUT BR @ 1100, ADVISED SHE SHOULD AVOID STAYING IN BR THAT LENGTH OF TIME SHE HAS SCHEDULED MEDICATIONS TO BE GIVEN WHICH SHOULD BE DONE IN A TIMELY MANNER, HER RESPONSE WAS THAT HER FRIEND CALLED AND SHE COULD NOT GET HER OFF THE PHONE.
--- NOTE | 2024-06-12 16:00 | NUR ---
STABLE CONDITION, PAIN RELIEVED WITH ANALGESICC
--- NOTE | 2024-06-12 20:30 | NUR ---
PT RESTING IN BED NO DISTRESS NOTED FRIEND AT BEDSIDE. ASSESSMENT DONE. DRESSING ON LEFT FOOT INTACT NO DRAINAGE. PICC LINE FLUSHED WORKING PROPERLY. CALL LIGHT WITHIN REACH. PLAN OF CARE ONGOING.
[2024-06-13] VITALS (8 sets, daily range): BP systolic 113–138; BP diastolic 62–90
--- NOTE | 2024-06-13 | NUR ---
PT RESTING NO DISTRESS NOTED AWAKE. PICC LINE FLUSHED SL. NO PAIN REPORTED. DRESSING INTACT NO DRAINAGE. CALL LIGHT WITHIN REACH. PLAN OF CARE ONGOING.
--- NOTE | 2024-06-13 04:30 | NUR ---
PT AWAKE NO DISTRESS NOTED. BLOOD DRAW FROM PICC AND FLUSHED. DRESSING INTACT NO DRAINAGE. CALL LIGHT WITHIN REACH. PLAN OF CARE ONGOING.
[2024-06-13 05:12] LABS: ALBUMIN 3.9 g/dL (3.2-5.0); BILIRUBIN, TOTAL 0.6 mg/dL (0.02-1.3); CREATININE 0.6 mg/dL (0.5-1.0); MAGNESIUM 1.9 mg/dL (1.6-2.3); POTASSIUM 4.5 mmol/l (3.5-5.1); TOTAL PROTEIN 7.5 g/dL (6.3-8.2)
[2024-06-13 05:19] LABS: BASO% 1.1 % (0-3); EOS% 9.8 % (0-8); HEMATOCRIT 37.6 % (37.0-47.0); HEMOGLOBIN 11.6 g/dl (12.0-16.0); IMMATURE GRANULOCYTES 0.3 % (0.0-5.0); MEAN CELL VOLUME 96.9 fL CALC (80.0-100.0); MEAN CORPUSCULAR HGB 29.9 pG CALC (26.0-32.0); MEAN CORPUSCULAR HGB CONC 30.9 g/dL CAL (32.0-36.0); MONO% 10.7 % (2-13); NEUT# 3.17 thou/uL (2.00-7.15); NEUT% 50.1 % (42-76); RED BLOOD COUNT 3.88 mill/uL (4.20-5.60); RED CELL DISTRI WIDTH 14.2 % (11.5-15.5)
--- NOTE | 2024-06-13 07:51 | NUR ---
PT IS AOX4, RESPIRATIONS ARE EVEN AND UNLABORED ON ROOM AIR SITTING UP ON SIDE OF THE BED, LUNGS ARE CLEAR THROUGHOUT, BOWEL SOUNDS ARE ACTIVE, RIGHT PEDAL PULSE IS PALPABL E TO TOUCH, RIGHT FOOT IS COVERED WITH BANDAGE THAT IS CLEAN, DRY, INTACT. PT REPORTS A "BURNING" PAIN IN LEFT FOOT AT A 6-7 ON A 0-10 PAIN SCALE, WITH BRING PT PRN PAIN MEDICATION WITH MORNING MEDS.
--- NOTE | 2024-06-13 11:00 | NUR ---
S: SHARON YAP is a 53 F who presents with osteomyelitis, underwent successfull amputation on 06/07. O: VS: BP 125/81, P 88, RR 20, T 97.1 W 93.2 kg, HT 66 in, Scr= 0.6,CrCl= 134 ml/min A: Blood culture is negative. 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 P: Patient is on Vancomycin and Ceftriaxone. Vancomycin ordered for pharmacy to dose. Trough on 06/13 930 resulted at 13 mcg/ml. Continue Vancomycin 1250 mg IV Q12H. Vancomycin trough to be drawn on 06/15 930. Vancomycin goal trough is between <10-15 mcg/ml>. Pharmacy will follow and or advise on antibiotics use as needed.
[2024-06-13] MEDS ORDERED: KETOROLAC TROMETHAMINE 30 MG/ML SDV IV PRN (13:10)
[2024-06-13 15:29] LABS: URINE BILIRUBIN - DIPSTICK Negative (NEGATIVE); URINE BLOOD DIPSTICK Negative (NEGATIVE); URINE GLUCOSE - DIPSTICK Negative (NEGATIVE); URINE KETONE Negative (NEGATIVE); URINE LEUK ESTERASE Negative (NEGATIVE); URINE NITRITE - DIPSTICK Negative (Negative); URINE PROTEIN - DIPSTICK Negative (NEG-TRACE); URINE UROBILINOGEN - DIPSTICK 0.2 E.U./dL (0.2)
[2024-06-13 15:34] LABS: URINE COLOR Yellow
--- NOTE | 2024-06-13 20:05 | NUR ---
PT SITTING UP ON THE RECLINER AT THIS TIME. ALERT AND ORIENTED X3. AT THIS TIME REPORTS PAIN 5/10 ON HER LEFT FOOT BUT SHE STATED SHE WILL WAINT UNTIL SHE CAN GET [facility] AGAIN. TELE MONITOR ON PLACE ORDERED RUNNING SR95 AT THIS TIME. BILLATERALY LEGS WITH TRACE EDEMA AND REDDISH LOWER EXTREMITIES. RIGHT UPPER ARM PICC LINE FLUSHES WELL. CALL LIGHT IN REACH AND SAFETY PRECAUTIONS ON PLACE.
[2024-06-14] VITALS (9 sets, daily range): BP systolic 115–146; BP diastolic 74–94
--- NOTE | 2024-06-14 00:05 | NUR ---
PT SITTING UP ON THE RECINER AT THIS TIME. VANCO INFUSING VIA RIGHT UPPER ARM PICC LINE AT THIS TIME AT 125 MLS.HR. RESPS ARE EVEN AND UNLABORED. PT WAS REMINDED TO KEEP HIS LEFT FOOR ELEVATED. TELE MONITOR IN PLACE ORDERED. CALL LIGHT IN REACH AND SAFETY PRECAUTIONS ON PLACE.
--- NOTE | 2024-06-14 04:00 | NUR ---
PT RESTING ON BED IN SUPINE POSITION WITH THE LEFT FOOT ELEVATED ON ONE PILLOW. RESPS ARE EVEN AND UNLABORED. NO SIGNS OF DISTRESS NOTED AT THIS TIME. CALL LIGHT IN REACH AND SAFETY PRECAUTIONS ON PLACE
--- NOTE | 2024-06-14 07:40 | NUR ---
PT IS AOX4 RESPIRATIONS ARE EVEN AND UNLABORED, LUNGS ARE CLEAR, PT ABLE TO GET TO 2500 ON THE IS, BOWEL SOUNDS ARE ACTIVE, RIGHT PEDAL PULSES IS PALPABLE TO TOUCH, LEFT FOOT DRESSING IS CLEAN, DRY, INTACT, NO COMPLAINTS OF PAIN AT THIS TIME.
--- NOTE | 2024-06-14 09:00 | NUR ---
OK TO GIVE PT THE LANTUS PER DR RAY.
--- NOTE | 2024-06-14 13:51 | NUR ---
PT SITTING UP IN CHAIR AT WINDOW WITH NO COMPLAINTS AT THIS TIME.
--- NOTE | 2024-06-14 19:10 | NUR ---
PATIENT OBSERVED SITTING IN RECLINER BY WINDOW. ALERT AND ABLE TO MAKE NEEDS KNOWN. ASSESSMENT COMPLETE. NO DISTRESS NOTED. NO COMPLAINTS VOICED. DRESSING AND CHER WRAP INTACT TO LEFT FOOT. PATIENT DENIES NEEDING ANYTHING AT THIS TIME. PATIENT IS EATING DINNER. CALL CARDONA IN REACH.
--- NOTE | 2024-06-14 23:45 | NUR ---
PATIENT DENIES NEEDING ANYTHING AT THIS TIME. BED REMAINS IN LOW POSITION. CALL CARDONA AND BELONGINGS IN REACH.
[2024-06-15] VITALS (9 sets, daily range): BP systolic 108–139; BP diastolic 74–88
--- NOTE | 2024-06-15 04:00 | NUR ---
PATIENT OBSERVED RESTING IN BED ON HER LEFT SIDE ON HER PHONE. DENIES NEEDING ANYTHING AT THIS TIME. BED REMAINS IN LOW POSITION. CALL CARDONA AND BELONGINGS IN REACH.
[2024-06-15 05:37] LABS: BASO% 1.5 % (0-3); EOS% 10.1 % (0-8); HEMATOCRIT 36.3 % (37.0-47.0); HEMOGLOBIN 11.4 g/dl (12.0-16.0); IMMATURE GRANULOCYTES 0.2 % (0.0-5.0); LYMPH% 29.8 % (15-41); MEAN CELL VOLUME 96.3 fL CALC (80.0-100.0); MEAN CORPUSCULAR HGB 30.2 pG CALC (26.0-32.0); MEAN CORPUSCULAR HGB CONC 31.4 g/dL CAL (32.0-36.0); MONO% 10.4 % (2-13); NEUT# 2.91 thou/uL (2.00-7.15); RED BLOOD COUNT 3.77 mill/uL (4.20-5.60); RED CELL DISTRI WIDTH 14.2 % (11.5-15.5)
[2024-06-15 05:45] LABS: ALBUMIN 3.9 g/dL (3.2-5.0); BILIRUBIN, TOTAL 0.5 mg/dL (0.02-1.3); CREATININE 0.5 mg/dL (0.5-1.0); MAGNESIUM 1.8 mg/dL (1.6-2.3); POTASSIUM 4.4 mmol/l (3.5-5.1); TOTAL PROTEIN 7.5 g/dL (6.3-8.2)
--- NOTE | 2024-06-15 07:19 | NUR ---
PT IS AOX4, RESPIRATIONS ARE EVEN AND UNLABORED ON ROOM AIR, LUNGS ARE CLEAR THROUGHOUT, BOWEL SOUNDS ARE ACTIVE, RIGHT PEDAL PULSES IS PALPABLE TO TOUCH, LEFT FOOT DRESSING IS CLEAN, DRY, INTACT, PT REPORTS PAIN "MUCH BETTER" THIS MORNING. PT DOES REPORT HAVING "BLOOD IN THE TISSUE WHEN SHE BLOWS HER NOSE" LASTNIGHT AND THIS MORNING.
--- NOTE | 2024-06-15 09:44 | NUR ---
NAILA ALVAREZ COLLECTED AND SENT TO LAB.
--- NOTE | 2024-06-15 10:32 | NUR ---
PT LEFT THE FLOOR VIA STAFF WHEELCHAIR TRANSPORT FOR CT SCAN.
--- NOTE | 2024-06-15 12:24 | NUR ---
LEFT FOOT DRESSING CHANGED, ESCHAR NOTED TO 2ND DIGIT EDGES, 3RD DIGIT WND WITH ESCHAR. SUTURES IN PLACE. WOUND COVERED WITH BETADINE SOAKED 4X4, THEN COVERED WITH DRY 4X4, WRAPPED IN KURLEX THEN WRAPPED WITH CHER DRESSING. PT TOLERATED WITH NO COMPLAINTS.
--- NOTE | 2024-06-15 14:20 | NUR ---
S: SHARON YAP is a 53 F who presents with osteomyelitis of left (post amputation). O: VS: BP 139/88, P 102, RR 20, T 96.5 W 92.8 kg, HT 66 in, Scr=0.5, CrCl= 127.3 ml/min Vancomycin trough 06/15@0943 = 12 A: Vancomycin trough level within therapeutic goal range of 10-15. No change in dose warranted. P: Patient is on ceftriaxone 2 g IV q24h and vancomycin 1250 mg IV q12h. Vancomycin ordered for pharmacy to dose. Continue Vancomycin 1250 mg IV Q12H. Vancomycin trough is drawn before the dose on 06/18@0930. Vancomycin goal trough is between 10-15 mcg/ml. Pharmacy will follow and or advise on antibiotics use as needed.
--- NOTE | 2024-06-15 15:42 | NUR ---
PT SITTING UP IN CHAIR WITH NO COMPLAINTS AT THIS TIME.
--- NOTE | 2024-06-15 19:10 | NUR ---
PATIENT OBSERVED RESTING IN RECLINER IN ROOM. ASSESSMENT COMPLETE. NO DISTRESS NOTED. NO COMPLAINTS OF PAIN AT THIS TIME. DRESSING ON LEFT FOOT CDI. PATIENT DENIES NEEDING ANYTHING AT THIS TIME. CALL CARDONA AND BELONGINGS IN REACH.
--- NOTE | 2024-06-15 22:00 | NUR ---
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 ORDER FOR GI PCR.
--- NOTE | 2024-06-15 23:25 | NUR ---
PATIENT REMAINS RESTING. INFORMED WE NEED A STOOL SAMPLE. DENIES NEEDING ANYTHING AT THIS TIME. BED IN LOW POSITION. CALL CARDONA IN REACH.
[2024-06-16] VITALS (7 sets, daily range): BP systolic 111–158; BP diastolic 62–91
--- NOTE | 2024-06-16 04:10 | NUR ---
PATIENT REMAINS RESTING IN ROOM. NO DISTRESS NOTED. SHE TOOK A SHOWER. DENIES NEEDING ANYTHING AT THIS TIME. BED IN LOW POSITION. CALL CARDONA IN REACH.
--- NOTE | 2024-06-16 07:40 | NUR ---
PATIENT SITTING UP IN RECLINER BY WINDOW. BREATHING UNLABORED ON ROOM AIR. TELE INTACT. LIBRA PICC SL;SITE CLEAN AND INTACT. PT STATES TO HAVE SOME BACK PAIN BUT WAS ALREADY MEDICATED FOR IT. DENIES ANY N/D/V AT THIS TIME. STATES TO BE VERY BORED AND WOULD LIKE TO WALK;INFORMED PT TO WALK UP AND DOWN THE HALLS IF SHE'D LIKE. ASSESSMENT COMPLETED. PERSONAL ITEMS WELL CALL LIGHT WITHIN REACH. NO OTHER NEEDS AT THIS TIME. POC ONGOING.
[2024-06-16] MEDS ORDERED: YEAST (S. BOULARDII)(S. CEREVI 250 MG CAP PO SCH (09:00)
[2024-06-16] MEDS ORDERED: SALINE 45 ML INH SCH (11:00)
--- NOTE | 2024-06-16 12:17 | NUR ---
PATIENT SITTING UP IN RECLINE BESIDE WINDOW. BREATHING UNLABORED ON ROOM AIR. TELE INTACT. LIBRA PICC INFUSING FLUIDS PER EMAR;SITE CLEAN AND INTACT. PT DENIES ANY PAIN OR N/D/V AT THIS TIME. PERSONAL ITEMS WELL CALL LIGHT WITHIN REACH. NO NEEDS AT THIS TIME. POC ONGOING.
--- NOTE | 2024-06-16 16:16 | NUR ---
PATIENT SITTING UP IN RECLINER BY WINDOW. BREATHING UNLABORED ON ROOM AIR. TELE INTACT. LIBRA PICC INFUSING FLUIDS PER EMAR;SITE CLEAN AND INTACT. PT DENIES ANY PAIN OR N/D/V AT THIS TIME. PERSONAL ITEMS WELL CALL LIGHT WITHIN REACH. NO OTHER NEEDS AT THIS TIME. POC ONGOING.
--- NOTE | 2024-06-16 19:21 | NUR ---
PATIENT OBSERVED TO BE RESTING IN BED WATCHING TV. PATIENT IS A&O CAN MAKE NEEDS KNOWN, NONE NEEDED AT THIS TIME. LEFT FOOT CHER WRAPPED AND HAS BOOT. RIGHT PEDAL PULSE WEAK. BED AT LOWEST POSITION.CALL LIGHT WITH IN REACH.
[2024-06-17] VITALS (7 sets, daily range): BP systolic 108–130; BP diastolic 57–70
--- NOTE | 2024-06-17 00:33 | NUR ---
PATIENT OBSERVED TO BE RESTING IN BED ON LEFT SIDE WITH EYES CLOSED. EQUAL UNLABORED RESP, NO VISUAL SIGNS OF DISTRESS. BED AT LOWEST POSITION. CALL LIGHT WITH IN REACH.
--- NOTE | 2024-06-17 04:44 | NUR ---
PATIENT OBSERVED TO BE RESTING IN BED WITHEYES CLOSED. EQUAL UNLABORED RESP, NO VISUAL SIGNS OF DISTRESS. BED AT LOWEST POAITION. CALL LIGHT WITH IN REACH.
--- NOTE | 2024-06-17 07:17 | NUR ---
PATIENT UP SITTING IN RECLINER BESIDE WINDOW. BREATHING UNLABORED ON ROOM AIR. TELE INTACT. LIBRA PICC SL;SITE CLEAN AND INTACT. PT STATES TO WANT SOMETHING FOR PAIN. DENIES ANY N/D/V AT THIS TIME. PT INFORMED PAIN MEDS WILL BE BROUGHT WITH MORNING MEDICATION. NO OTHER NEEDS AT THIS TIME. PERSONAL ITEMS WELL CALL LIGHT WITHIN REACH;PT VERBALIZED UNDERSTANDING OF USE. POC ONGOING.
--- NOTE | 2024-06-17 10:30 | NUR ---
nurse notified of patient glucose level is 73. patient wanted diet soda, peanut butter, and bry crackers, along with her yogurt.
--- NOTE | 2024-06-17 12:16 | NUR ---
PATIENT SITTING UP IN RECLINER BESIDE WINDOW. BREATHING UNLABORED ON ROOM AIR. TELE INTACT. LEFT FOOT DRESSING C/D/I. LIBRA PICC INFUSING FLUIDS PER EMAR;SITE CLEAN AND INTACT. PT DENIES ANY PAIN OR N/D/V AT THIS TIME. PERSONAL ITEMS WELL CALL LIGHT WITHIN REACH. NO NEEDS AT THIS TIME. POC ONGOING.
--- NOTE | 2024-06-17 16:09 | NUR ---
PATIENT UP SITTING IN RECLINER BESIDE WINDOW. BREATHING UNLABORED ON ROOM AIR. TELE INTACT. LIBRA PICC SL;SITE CLEAN AND INTACT. PT STATES TO HAVE A HEADACHE BUT DOES NOT WANT HER PAIN PILL. DENIES ANY N/D/V AT THIS TIME. PERSONAL ITEMS WELL CALL LIGHT WITHIN REACH. NO OTHER NEEDS AT THIS TIME. POC ONGOING.
--- NOTE | 2024-06-17 19:00 | NUR ---
REPORT RECEIVED FROM Kimberly MARTIN LPN.
--- NOTE | 2024-06-17 20:00 | NUR ---
PATIENT RESTING SITTING BY WINDOW. PATIENT REPORTS DRESSING WAS CHANGED EARLIER TODAY. PATIENT DENIES ANY CURRENT NEEDS. PICC TO LIBRA FLUSHED AND PATENT. CALL LIGHT PLACED WITHIN PATIENT REACH.
[2024-06-18] VITALS (7 sets, daily range): BP systolic 111–139; BP diastolic 59–86
--- NOTE | 2024-06-18 | NUR ---
PATIENT RESTING IN BED, STATES PAIN WAS EFFECTIVE. CALL LIGHT WITHIN REACH.
--- NOTE | 2024-06-18 04:42 | NUR ---
ATTEMPTED TO DRAW FROM PICC LINE. UNABLE TO DRAW BLOOD, PICC FLUSHES WITHOUT INCCIDENT BUT NOT BLOOD RETURN NOTED.
[2024-06-18 04:55] LABS: HEMOGLOBIN 12.1 g/dl (12.0-16.0); MEAN CELL VOLUME 95.8 fL CALC (80.0-100.0); MEAN CORPUSCULAR HGB 29.7 pG CALC (26.0-32.0); RED BLOOD COUNT 4.07 mill/uL (4.20-5.60)
[2024-06-18 05:12] LABS: ALBUMIN 3.8 g/dL (3.2-5.0); BILIRUBIN, TOTAL 0.5 mg/dL (0.02-1.3); CREATININE 0.5 mg/dL (0.5-1.0); POTASSIUM 3.7 mmol/l (3.5-5.1); TOTAL PROTEIN 7.6 g/dL (6.3-8.2)
--- NOTE | 2024-06-18 06:50 | NUR ---
PATIENT UP SITTING IN RECLINER BESIDE WINDOW. BREATHING UNLABORED ON ROOM AIR. TELE INTACT. LIBRA PICC SL;SITE CLEAN AND INTACT. ASSESSMENT COMPLETED. PT DENIES ANY PAIN OR N/D/V AT THIS TIME. PERSONAL ITEMS WELL CALL LIGHT WITHIN REACH. NO NEEDS AT THIS TIME. POC ONGOING.
--- NOTE | 2024-06-18 10:47 | NUR ---
S: SHARON YAP is a 53 F who presents with OSTEOMYLELITIS POST SURGERY AND BACTEREMIA All medications in patient's chart were reviewed. O: VS: BP 131/83, P 91, RR 24,T 96.9 F W 92.8kg, HT 66IN, Scr= 0.5,CrCl= 127ml/min TROUGH=12 A: Blood culture SHOWS STREPTOCOCCUS PYOGENES WOUND CULTURE SHOWS MRSA SUSCEPTABLE TO VANCOMYCIN P: Patient is on VANCOMYCIN 1250MG IV Q12H AND CEFTRIAXONE 2GM IV Q24H Vancomycin ordered for pharmacy to dose. CONTINUE Vancomycin 1250MG IV Q12H. Vancomycin trough is drawn before the dose on 06/22/24 @0930 DUE TO TROUGH BEING STABLE Vancomycin goal trough is between 10-15 mcg/ml. Pharmacy will follow and or advise on antibiotics use as needed.
--- NOTE | 2024-06-18 11:16 | NUR ---
Pts glucose was 69 @1107. Notified Nurse Bhavna @1110. Gave pt yogurt and orange juice.
--- NOTE | 2024-06-18 12:29 | NUR ---
PATIENT SITTING UP IN RECLINER BESIDE WINDOW. BREATHING UNLABORED ON ROOM AIR. TELE INTACT. LIBRA PICC INFUSING FLUIDS PER EMAR;SITE CLEAN AND INTACT. PT DENIES ANY PAIN OR N/D/V AT THIS TIME. PERSONAL ITEMS WELL CALL LIGHT WITHIN REACH. NO OTHER NEEDS AT THIS TIME. POC ONGOING.
--- NOTE | 2024-06-18 16:40 | NUR ---
PATIENT UP SITIING UP IN RECLINER. FREINDS AT BEDSIDE. BREATHING UNLABORED ON ROOM AIR. TELE INTACT. LIBRA PICC SL;SITE CLEAN AND INTACT. PT DENIES ANY NEEDS AT THIS TIME. PERSONAL ITEMS WELL CALL LIGHT WITHIN REACH. POC ONGOING.
--- NOTE | 2024-06-18 20:00 | NUR ---
RECEIVED REPORT FROM NURSE NANY, PATIENT SITTING IN CHAIR, ALERT ORIENTED, DRESSING ON LEFT FOOT CDI, PICC LINE, PATENT FLUSHES WELL NO BLOOD RETURN, ON TELEMETRY. C/ O PAIN ON LEFT FOOT WILL MEDICATE, CALL LIGHT WITHIN REACHED.
--- NOTE | 2024-06-18 23:34 | NUR ---
PATIENT RESTING IN BED, ONGOING VANCOMCIN INFUSING, BREATHING EVEN UNLABORED CALL LIGHT WITHIN REACHED.
[2024-06-19] VITALS (9 sets, daily range): BP systolic 120–139; BP diastolic 56–92
--- NOTE | 2024-06-19 04:09 | NUR ---
PATIENT AWAKE, RESTING IN BED, EYES CLOSED, BREATHING EVEN UNLABORED CALL LIGHT WITHIN REACHED.
[2024-06-19 05:25] LABS: HEMATOCRIT 41.8 % (37.0-47.0); HEMOGLOBIN 12.7 g/dl (12.0-16.0); MEAN CELL VOLUME 96.3 fL CALC (80.0-100.0); MEAN CORPUSCULAR HGB 29.3 pG CALC (26.0-32.0); MEAN CORPUSCULAR HGB CONC 30.4 g/dL CAL (32.0-36.0); RED BLOOD COUNT 4.34 mill/uL (4.20-5.60); RED CELL DISTRI WIDTH 13.8 % (11.5-15.5)
--- NOTE | 2024-06-19 06:06 | NUR ---
DRESSING CHANGED DONE ORDERED,
[2024-06-19 06:20] LABS: ALBUMIN 4.5 g/dL (3.2-5.0); BILIRUBIN, TOTAL 0.5 mg/dL (0.02-1.3); POTASSIUM 3.8 mmol/l (3.5-5.1); TOTAL PROTEIN 8.8 g/dL (6.3-8.2)
[2024-06-19 06:25] LABS: CREATININE 0.6 mg/dL (0.5-1.0)
--- NOTE | 2024-06-19 07:38 | NUR ---
patient a/o x3; room air; breathing unlabored and even; patient sitting in chiar next to window on her phone; no s.s of distress at this time; denied any n/d/v at this time; stated some pain 08/07, wll check emar for medications; iv site clean and intact saline locked at this time; contact sign on door; call light within reach, verbalized understanding on how to use, personal items within reach; bed in lowest postion;safety meaures inplace
--- NOTE | 2024-06-19 11:54 | NUR ---
PATEINT A/O X3; ROOMAIR; BREATHING UNLABORED AND EVEN; DNEIED ANY N/D/V AT THIS TIME; NO COMPLAINTS; PICC SITE CLEAN AND INTACT RUNNING WITH ANTIBODICS WITH ARSLAN SSUES; NO S.S OF DISTRESS AT THIS TIME; NO COVERAGE WAS NEEDED ON GLUCOSE; CALL LIGHT WITHIN REACH,VERBALIZED UNDERSTANDING ON HOW TO USE, PERSONAL ITEMS WITHIN REACH; BED IN LOWEST POSTIOM;SAFETY MEASURES IN [place]
--- NOTE | 2024-06-19 19:10 | NUR ---
PATIENT OBSERVED RESTING IN RECLINER BY WINDOW. ASSESSMENT COMPLETE. NO DISTRESS NOTED. NO COMPLAINTS OF PAIN. DRESSING INTACT TO LEFT FOOT. DONE BY DAY SHIFT NURSE TODAY. DENIES NEEDING ANYTHING AT THIS TIME. CALL ACRDONA IN REACH.
[2024-06-20 00:38] VITALS: BP 121/53
--- NOTE | 2024-06-20 00:55 | NUR ---
PATIENT OBSERVED TO BE MORE DROWSY THEN BEGINNING OF SHIFT. WHEN I MENTIONED IT TO HER, SHE STATED, ''GAURAV ONLY TAKEN WHAT HAS BEEN GIVEN TO ME BY IZABELLA TODAY, I PROMISE''. PATIENT BECAME VERY ALERT AFTER. ANSWERS APPROPRIATELY. 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 WILL CONTINUE TO MONITOR.
--- NOTE | 2024-06-20 02:44 | NUR ---
PATIENT OBSERVED RESTING IN BED, WITH EYES CLOSED. ANSWERING QUESTIONS APPROPRIATELY WHEN SPOKEN TOO.
--- NOTE | 2024-06-20 04:29 | NUR ---
PATIENT APPEARS RESTING IN BED. NO DISTRESS NOTED. BED REMAINS IN LOW POSITION. CALL CARDONA IN REACH.
[2024-06-20 05:17] VITALS: BP 140/61
[2024-06-20 05:30] LABS: BASO% 1.3 % (0-3); EOS% 15.6 % (0-8); HEMATOCRIT 39.3 % (37.0-47.0); HEMOGLOBIN 12.1 g/dl (12.0-16.0); IMMATURE GRANULOCYTES 0.2 % (0.0-5.0); LYMPH% 31.7 % (15-41); MEAN CELL VOLUME 95.6 fL CALC (80.0-100.0); MEAN CORPUSCULAR HGB 29.4 pG CALC (26.0-32.0); MEAN CORPUSCULAR HGB CONC 30.8 g/dL CAL (32.0-36.0); MONO% 8.9 % (2-13); NEUT# 2.37 thou/uL (2.00-7.15); NEUT% 42.3 % (42-76); RED BLOOD COUNT 4.11 mill/uL (4.20-5.60)
[2024-06-20 05:58] LABS: ALBUMIN 3.7 g/dL (3.2-5.0); BILIRUBIN, TOTAL 0.4 mg/dL (0.02-1.3); CREATININE 0.5 mg/dL (0.5-1.0); MAGNESIUM 1.8 mg/dL (1.6-2.3); POTASSIUM 3.8 mmol/l (3.5-5.1); TOTAL PROTEIN 7.4 g/dL (6.3-8.2)
[2024-06-20 07:38] VITALS: BP 139/92
[2024-06-20] MEDS ORDERED: LASIX 40 MG TAB40 MG PO (08:16)
[2024-06-20] MEDS ORDERED: LOSARTAN POTASS50 MG PO (08:16)
[2024-06-20] MEDS ORDERED: ROPINIROLE4 MG PO (08:17)
[2024-06-20] MEDS ORDERED: FLORASTOR250 M1 PO (08:17)
[2024-06-20] MEDS ORDERED: METFORMIN HCL1000 MG PO (08:17)
[2024-06-20] MEDS ORDERED: LANTUS100 UNIT SC (08:18)
[2024-06-20] MEDS ORDERED: LEVOTHYROXIN50 MC1 PO (08:18)
[2024-06-20] MEDS ORDERED: AMOX/K CLAV875 M1 PO (08:19)
[2024-06-20] MEDS ORDERED: VIBRAMYCIN100 M2 PO (08:19)
[2024-06-20] MEDS ORDERED: GABAPENTIN800 MG PO (08:19)
[2024-06-20] MEDS ORDERED: LORTAB 5/3255 MG PO (08:20)
[2024-06-20 08:51] VITALS: BP 139/92
--- NOTE | 2024-06-20 09:00 | NUR ---
PT ALERT ANDORIENTED X 3. LUNGS CLEAR, RA, AMBULATORY INROOM. NO COMPLAINTSOF PAINOR EVDENCE OF DISTRESS.
[2024-06-20] MEDS ORDERED: HYDROCO/APAP1 TA9 PO (10:12)
--- NOTE | 2024-06-20 12:00 | NUR ---
PT DISCHARGED TO HOME. RIGHT UPPER ARM PICC LINE REMOVED PRIOR TO DISCHARGE WITHOUT DIFFICULTY.
--- NOTE | 2024-06-20 13:44 | NUR ---
PT VERBALIZES UNDERSTANDING OF DC INSTRUCTIONS, TAKEN BY WHEELCHAIR TO VEHICLE. SHE WAS ACCOMPANIED BY FRIENDS.
== END 2024-06-20 13:36 | disposition home or self-care (01) | DRG 617 ==
LOC: ED 14:02 → ED-I 15:01 → ED 15:08 → MS2 15:09
PROVIDERS: Internal Medicine; Nurse Practitioner; Nurse Practitioner Family; ADMIT Internal Medicine; ATTEND Internal Medicine
PROC: 0Y6S0Z0 Detachment at Left 2nd Toe, Complete, Open Approach (ICD-10-PCS; principal; 2024-06-06)
PROC: 0Y6U0Z3 Detachment at Left 3rd Toe, Low, Open Approach (ICD-10-PCS; 2024-06-06)
PROC: 0QBR0ZX Excision of Left Toe Phalanx, Open Approach, Diagnostic (ICD-10-PCS; 2024-06-06)
PROC: 02HV33Z Insertion of Infusion Device into Superior Vena Cava, Percutaneous Approach (ICD-10-PCS; 2024-06-08)
PROC: B518ZZA Fluoroscopy of Superior Vena Cava, Guidance (ICD-10-PCS; 2024-06-08)
DX: E11.69 Type 2 diabetes mellitus with other specified complication (principal); M86.8X7 Other osteomyelitis, ankle and foot; R78.81 Bacteremia; E11.628 Type 2 diabetes mellitus with other skin complications; L03.032 Cellulitis of left toe; E11.42 Type 2 diabetes mellitus with diabetic polyneuropathy; E11.65 Type 2 diabetes mellitus with hyperglycemia; E11.621 Type 2 diabetes mellitus with foot ulcer; L97.529 Non-pressure chronic ulcer of other part of left foot with unspecified severity; I11.0 Hypertensive heart disease with heart failure; I50.9 Heart failure, unspecified; E03.9 Hypothyroidism, unspecified; K75.81 Nonalcoholic steatohepatitis (NASH); K74.69 Other cirrhosis of liver; G25.81 Restless legs syndrome; M10.9 Gout, unspecified; R04.0 Epistaxis; B95.62 Methicillin resistant Staphylococcus aureus infection as the cause of diseases classified elsewhere; B95.0 Streptococcus, group A, as the cause of diseases classified elsewhere; T50.916A Underdosing of multiple unspecified drugs, medicaments and biological substances, initial encounter; Z91.128 Patient's intentional underdosing of medication regimen for other reason; Z98.84 Bariatric surgery status; Z89.421 Acquired absence of other right toe(s); Z79.84 Long term (current) use of oral hypoglycemic drugs
CPT/HCPCS: J0131; J0692; J0696; J1650; J1815; J1939; J1940; J3370

== ENCOUNTER 2024-09-13 13:07 | Inpatient (IN) | payer OTHER ==
[2024-09-13] VITALS (38 sets, daily range): BP systolic 119–158; BP diastolic 74–120
[~2024-09-13] VITALS: Ht 167.6 cm; Wt 105.5 kg
[~2024-09-13 13:07] MED LIST changes: +AMOX/K CLAV875 M1 PO; +CEFTRIAXONE2 GM IV; +FLORASTOR250 M1 PO; +HYDROCO/APAP1 TA9 PO; +LANTUS100 UNIT SC; +LORTAB 5/3255 MG PO; +VANCOMYCIN1250 MG/25 IV
[2024-09-13] MEDS ORDERED: ASPIRIN 81 MG/TAB PO ONE (13:30)
[2024-09-13 14:15] LABS: BASO% 0.7 % (0-3); EOS% 0.4 % (0-8); HEMATOCRIT 38.1 % (37.0-47.0); HEMOGLOBIN 12.1 g/dl (12.0-16.0); IMMATURE GRANULOCYTES 0.1 % (0.0-5.0); LYMPH% 11.5 % (15-41); MEAN CELL VOLUME 93.4 fL CALC (80.0-100.0); MEAN CORPUSCULAR HGB 29.7 pG CALC (26.0-32.0); MEAN CORPUSCULAR HGB CONC 31.8 g/dL CAL (32.0-36.0); MONO% 7.8 % (2-13); NEUT# 5.46 thou/uL (2.00-7.15); NEUT% 79.5 % (42-76); RED BLOOD COUNT 4.08 mill/uL (4.20-5.60); RED CELL DISTRI WIDTH 17.1 % (11.5-15.5)
[2024-09-13] MEDS ORDERED: AZITHROMYCIN 500 MG in SODIUM CHLORIDE 0.9% 500 ML IV ONE (14:25)
[2024-09-13 14:29] LABS: ALBUMIN 3.9 g/dL (3.2-5.0); C-REACTIVE PROTEIN 4.3 mg/dL (0-0.9); CREATININE 0.6 mg/dL (0.5-1.0); POTASSIUM 4.2 mmol/l (3.5-5.1)
[2024-09-13 14:30] LABS: TOTAL PROTEIN 9.4 g/dL (6.3-8.2)
[2024-09-13] MEDS ORDERED: VANCOMYCIN HCL 1 GM in SODIUM CHLORIDE 0.9% 500 ML IV ONE (14:30)
[2024-09-13] MEDS ORDERED: CEFEPIME HYDROCHLORIDE 1 GM in SODIUM CHLORIDE 0.9% 50 ML IV ONE (14:30)
[2024-09-13] MEDS ORDERED: SODIUM CHLORIDE 0.9% 500 ML IV ONE (14:55)
[2024-09-13] MEDS ORDERED: ONDANSETRON HCl 4 MG/2 ML SDV IV ONE (16:30)
[2024-09-13] MEDS ORDERED: OZEMPIC2 MG SC (16:53)
[2024-09-13] MEDS ORDERED: DEXTROSE 250 ML IV PRN (19:40)
[2024-09-13] MEDS ORDERED: Zaleplon 5 MG/CAP PO PRN (19:40)
[2024-09-13] MEDS ORDERED: MAGNESIUM HYDROXIDE 30 ML UDC PO PRN (19:40)
[2024-09-13] MEDS ORDERED: ACETAMINOPHEN 325 MG/TAB PO PRN (19:40)
[2024-09-13] MEDS ORDERED: INSULIN LISPRO 100 UNITS/ML ML SC SCH (21:00)
[2024-09-13] MEDS ORDERED: ENOXAPARIN SODIUM 40 MG/0.4 ML SYR SC SCH (21:00)
[2024-09-13] MEDS ORDERED: GABAPENTIN 300 MG/CAP PO SCH (21:06)
[2024-09-13] MEDS ORDERED: rOPINIRole Hydrochloride 0.5 MG/TAB PO SCH (21:08)
[2024-09-13] MEDS ORDERED: GABAPENTIN 100 MG/CAP PO SCH (21:10)
[2024-09-13] MEDS ORDERED: HYDROcodone 5 MG/Acetaminophen 325 MG/COMBO PO PRN (22:00)
[2024-09-14] VITALS (49 sets, daily range): BP systolic 114–158; BP diastolic 72–107
[2024-09-14] MEDS ORDERED: LEVOTHYROXINE SODIUM 50 MCG/TAB PO SCH (06:00)
[2024-09-14 07:06] LABS: HEMATOCRIT 38.8 % (37.0-47.0); MEAN CELL VOLUME 93.7 fL CALC (80.0-100.0); MEAN CORPUSCULAR HGB CONC 30.9 g/dL CAL (32.0-36.0); RED BLOOD COUNT 4.14 mill/uL (4.20-5.60); RED CELL DISTRI WIDTH 17.6 % (11.5-15.5)
[2024-09-14 07:17] LABS: ALBUMIN 3.3 g/dL (3.2-5.0); BILIRUBIN, TOTAL 3.3 mg/dL (0.02-1.3); CREATININE 0.5 mg/dL (0.5-1.0); MAGNESIUM 1.6 mg/dL (1.6-2.3); POTASSIUM 4.3 mmol/l (3.5-5.1); TOTAL PROTEIN 8.2 g/dL (6.3-8.2)
[2024-09-14] MEDS ORDERED: VANCOMYCIN HCL 1 GM in SODIUM CHLORIDE 0.9% 250 ML IV SCH (08:00)
[2024-09-14] MEDS ORDERED: FUROSEMIDE 40 MG/TAB PO SCH (09:00)
[2024-09-14] MEDS ORDERED: LOSARTAN Potassium 50 MG/TAB PO SCH (09:00)
[2024-09-14] MEDS ORDERED: CEFEPIME HYDROCHLORIDE 2 GM in SODIUM CHLORIDE 0.9% 100 ML IV SCH ×2 (10:00→11:00)
[2024-09-14] MEDS ORDERED: IODINE 0.9 % GEL TOP SCH (11:00)
[2024-09-15 00:31] LABS: URINE BLOOD DIPSTICK Negative (NEGATIVE); URINE COLOR Yellow; URINE GLUCOSE - DIPSTICK Negative (NEGATIVE); URINE KETONE Negative (NEGATIVE); URINE LEUK ESTERASE Negative (NEGATIVE); URINE NITRITE - DIPSTICK Negative (Negative); URINE PROTEIN - DIPSTICK Negative (NEG-TRACE)
[2024-09-15 05:33] LABS: BASO% 0.7 % (0-3); EOS% 7.5 % (0-8); HEMATOCRIT 39.3 % (37.0-47.0); HEMOGLOBIN 12.2 g/dl (12.0-16.0); IMMATURE GRANULOCYTES 0.1 % (0.0-5.0); LYMPH% 16.1 % (15-41); MEAN CELL VOLUME 95.6 fL CALC (80.0-100.0); MEAN CORPUSCULAR HGB 29.7 pG CALC (26.0-32.0); MONO% 9.9 % (2-13); NEUT# 4.4 thou/uL (2.00-7.15); NEUT% 65.7 % (42-76); RED BLOOD COUNT 4.11 mill/uL (4.20-5.60); RED CELL DISTRI WIDTH 17.6 % (11.5-15.5)
[2024-09-15 05:48] LABS: ALBUMIN 2.8 g/dL (3.2-5.0); BILIRUBIN, TOTAL 2.1 mg/dL (0.02-1.3); CREATININE 0.6 mg/dL (0.5-1.0); MAGNESIUM 1.6 mg/dL (1.6-2.3); POTASSIUM 3.7 mmol/l (3.5-5.1); TOTAL PROTEIN 7.1 g/dL (6.3-8.2)
[2024-09-15 05:55] VITALS: BP 134/84
[2024-09-15 06:12] VITALS: BP 130/79
[2024-09-15 09:44] VITALS: BP 122/81
[2024-09-15 13:04] VITALS: BP 138/82
[2024-09-15 18:22] VITALS: BP 127/69
[2024-09-15] MEDS ORDERED: SODIUM CHLORIDE 0.9% 100 ML IV ONE (19:56)
[2024-09-16] VITALS (10 sets, daily range): BP systolic 98–151; BP diastolic 49–94
[2024-09-16 07:50] LABS: BASO% 0.7 % (0-3); EOS% 9.5 % (0-8); HEMATOCRIT 39.1 % (37.0-47.0); HEMOGLOBIN 12.1 g/dl (12.0-16.0); IMMATURE GRANULOCYTES 0.2 % (0.0-5.0); LYMPH% 22.8 % (15-41); MEAN CORPUSCULAR HGB 29.1 pG CALC (26.0-32.0); MEAN CORPUSCULAR HGB CONC 30.9 g/dL CAL (32.0-36.0); MONO% 9.3 % (2-13); NEUT# 3.28 thou/uL (2.00-7.15); NEUT% 57.5 % (42-76); RED BLOOD COUNT 4.16 mill/uL (4.20-5.60)
[2024-09-16 09:03] LABS: ALBUMIN 2.7 g/dL (3.2-5.0); BILIRUBIN, TOTAL 1.8 mg/dL (0.02-1.3); CREATININE 0.4 mg/dL (0.5-1.0); MAGNESIUM 1.4 mg/dL (1.6-2.3); POTASSIUM 3.6 mmol/l (3.5-5.1)
[2024-09-16] MEDS ORDERED: ALPRAZolam 0.25 MG PO PRN (10:00)
[2024-09-16] MEDS ORDERED: MAGNESIUM SULFATE HEPTAHYDRATE 100 ML IV SCH (11:30)
[2024-09-16] MEDS ORDERED: SODIUM CHLORIDE 0.9% 250 ML IV PRN (15:15)
[2024-09-16] MEDS ORDERED: ONDANSETRON HCl 4 MG/2 ML SDV IV PRN ×2 (17:55→19:01)
[2024-09-16] MEDS ORDERED: oxyCODONE 5MG/ ACETAMINOPHEN 325MG TAB PO PRN (20:00)
[2024-09-16] MEDS ORDERED: HYDROmorphone HCL 2 MG/AMP IV PRN (20:05)
[2024-09-17] VITALS (8 sets, daily range): BP systolic 109–150; BP diastolic 50–80
[2024-09-17 07:25] LABS: BASO% 0.7 % (0-3); EOS% 13.5 % (0-8); HEMATOCRIT 41.8 % (37.0-47.0); HEMOGLOBIN 12.7 g/dl (12.0-16.0); IMMATURE GRANULOCYTES 0.3 % (0.0-5.0); MEAN CELL VOLUME 95.4 fL CALC (80.0-100.0); MEAN CORPUSCULAR HGB CONC 30.4 g/dL CAL (32.0-36.0); MONO% 10.8 % (2-13); NEUT# 3.42 thou/uL (2.00-7.15); NEUT% 50.7 % (42-76); RED BLOOD COUNT 4.38 mill/uL (4.20-5.60); RED CELL DISTRI WIDTH 18.1 % (11.5-15.5)
[2024-09-17 07:47] LABS: ALBUMIN 3.2 g/dL (3.2-5.0); BILIRUBIN, TOTAL 1.5 mg/dL (0.02-1.3); CREATININE 0.4 mg/dL (0.5-1.0); POTASSIUM 3.6 mmol/l (3.5-5.1); TOTAL PROTEIN 7.6 g/dL (6.3-8.2)
[2024-09-17 07:48] LABS: MAGNESIUM 1.8 mg/dL (1.6-2.3)
[2024-09-18] VITALS (8 sets, daily range): BP systolic 111–156; BP diastolic 62–85
[2024-09-18 04:58] LABS: BASO% 1.1 % (0-3); EOS% 16.3 % (0-8); HEMOGLOBIN 11.4 g/dl (12.0-16.0); IMMATURE GRANULOCYTES 0.4 % (0.0-5.0); LYMPH% 30.3 % (15-41); MEAN CELL VOLUME 97.9 fL CALC (80.0-100.0); MEAN CORPUSCULAR HGB 29.4 pG CALC (26.0-32.0); MONO% 13.9 % (2-13); NEUT# 2.08 thou/uL (2.00-7.15); RED BLOOD COUNT 3.88 mill/uL (4.20-5.60); RED CELL DISTRI WIDTH 18.1 % (11.5-15.5)
[2024-09-18 05:29] LABS: ALBUMIN 3.2 g/dL (3.2-5.0); CREATININE 0.3 mg/dL (0.5-1.0); MAGNESIUM 1.9 mg/dL (1.6-2.3); TOTAL PROTEIN 7.7 g/dL (6.3-8.2)
[2024-09-18 05:43] LABS: POTASSIUM 4.7 mmol/l (3.5-5.1)
[2024-09-19] VITALS (10 sets, daily range): BP systolic 113–126; BP diastolic 64–77
[2024-09-19 07:53] LABS: BASO% 1.4 % (0-3); EOS% 16.6 % (0-8); HEMATOCRIT 41.2 % (37.0-47.0); HEMOGLOBIN 12.2 g/dl (12.0-16.0); LYMPH% 31.1 % (15-41); MEAN CELL VOLUME 95.6 fL CALC (80.0-100.0); MEAN CORPUSCULAR HGB 28.3 pG CALC (26.0-32.0); MEAN CORPUSCULAR HGB CONC 29.6 g/dL CAL (32.0-36.0); MONO% 15.9 % (2-13); NEUT# 1.45 thou/uL (2.00-7.15); RED BLOOD COUNT 4.31 mill/uL (4.20-5.60); RED CELL DISTRI WIDTH 17.6 % (11.5-15.5)
[2024-09-19 08:05] LABS: ALBUMIN 3.6 g/dL (3.2-5.0); BILIRUBIN, TOTAL 1.3 mg/dL (0.02-1.3); CREATININE 0.4 mg/dL (0.5-1.0); MAGNESIUM 1.8 mg/dL (1.6-2.3); TOTAL PROTEIN 8.5 g/dL (6.3-8.2)
[2024-09-19 08:14] LABS: POTASSIUM 3.6 mmol/l (3.5-5.1)
[2024-09-19] MEDS ORDERED: cefTRIAXone SODIUM 2 GM in SODIUM CHLORIDE 0.9% 100 ML IV SCH (12:00)
[2024-09-19] MEDS ORDERED: DAPTOMYCIN/SODI1 IN2 IV (12:11)
[2024-09-19] MEDS ORDERED: CEFTRIAXONE2 GM IV (12:11)
[2024-09-20] VITALS (12 sets, daily range): BP systolic 115–142; BP diastolic 71–89
[2024-09-20] MEDS ORDERED: SODIUM CHLORIDE 0.9% 0 ML IV ONE (13:42)
[2024-09-21] VITALS (7 sets, daily range): BP systolic 114–126; BP diastolic 68–83
[2024-09-21 05:19] LABS: BASO% 1.5 % (0-3); EOS% 13.9 % (0-8); HEMATOCRIT 35.3 % (37.0-47.0); HEMOGLOBIN 10.6 g/dl (12.0-16.0); IMMATURE GRANULOCYTES 0.4 % (0.0-5.0); LYMPH% 32.4 % (15-41); MEAN CELL VOLUME 96.7 fL CALC (80.0-100.0); NEUT# 1.71 thou/uL (2.00-7.15); NEUT% 36.8 % (42-76); RED BLOOD COUNT 3.65 mill/uL (4.20-5.60); RED CELL DISTRI WIDTH 17.7 % (11.5-15.5)
[2024-09-21 05:57] LABS: ALBUMIN 3.2 g/dL (3.2-5.0); BILIRUBIN, TOTAL 0.9 mg/dL (0.02-1.3); CREATININE 0.5 mg/dL (0.5-1.0); MAGNESIUM 1.8 mg/dL (1.6-2.3); POTASSIUM 4.1 mmol/l (3.5-5.1); TOTAL PROTEIN 7.6 g/dL (6.3-8.2)
[2024-09-22] VITALS (10 sets, daily range): BP systolic 120–140; BP diastolic 70–92
[2024-09-22 06:39] LABS: BASO% 1.5 % (0-3); EOS% 13.8 % (0-8); HEMATOCRIT 35.3 % (37.0-47.0); HEMOGLOBIN 10.7 g/dl (12.0-16.0); IMMATURE GRANULOCYTES 0.4 % (0.0-5.0); LYMPH% 29.1 % (15-41); MEAN CELL VOLUME 96.2 fL CALC (80.0-100.0); MEAN CORPUSCULAR HGB 29.2 pG CALC (26.0-32.0); MEAN CORPUSCULAR HGB CONC 30.3 g/dL CAL (32.0-36.0); MONO% 13.1 % (2-13); NEUT# 1.92 thou/uL (2.00-7.15); NEUT% 42.1 % (42-76); RED BLOOD COUNT 3.67 mill/uL (4.20-5.60); RED CELL DISTRI WIDTH 17.6 % (11.5-15.5)
[2024-09-22 06:56] LABS: ALBUMIN 3.2 g/dL (3.2-5.0); BILIRUBIN, TOTAL 0.8 mg/dL (0.02-1.3); CREATININE 0.6 mg/dL (0.5-1.0); MAGNESIUM 1.8 mg/dL (1.6-2.3); POTASSIUM 4.3 mmol/l (3.5-5.1); TOTAL PROTEIN 7.4 g/dL (6.3-8.2)
[2024-09-23 04:58] VITALS: BP 122/81
[2024-09-23 05:46] LABS: CREATININE 0.4 mg/dL (0.5-1.0); MAGNESIUM 1.9 mg/dL (1.6-2.3); POTASSIUM 4.1 mmol/l (3.5-5.1)
[2024-09-23 05:49] LABS: BASO% 1.4 % (0-3); EOS% 8.9 % (0-8); HEMATOCRIT 36.6 % (37.0-47.0); HEMOGLOBIN 11.4 g/dl (12.0-16.0); IMMATURE GRANULOCYTES 0.2 % (0.0-5.0); LYMPH% 33.6 % (15-41); MEAN CELL VOLUME 95.1 fL CALC (80.0-100.0); MEAN CORPUSCULAR HGB 29.6 pG CALC (26.0-32.0); MEAN CORPUSCULAR HGB CONC 31.1 g/dL CAL (32.0-36.0); MONO% 12.4 % (2-13); NEUT# 2.48 thou/uL (2.00-7.15); NEUT% 43.5 % (42-76); RED BLOOD COUNT 3.85 mill/uL (4.20-5.60); RED CELL DISTRI WIDTH 17.4 % (11.5-15.5)
[2024-09-23 07:00] VITALS: BP 129/86
[2024-09-23 10:12] VITALS: BP 152/98
[2024-09-23 14:27] VITALS: BP 130/88
[2024-09-23 18:52] VITALS: BP 119/73
[2024-09-24] VITALS (7 sets, daily range): BP systolic 110–149; BP diastolic 63–90
[2024-09-24 05:56] LABS: BASO% 1.4 % (0-3); EOS% 8.9 % (0-8); HEMATOCRIT 35.2 % (37.0-47.0); HEMOGLOBIN 10.7 g/dl (12.0-16.0); IMMATURE GRANULOCYTES 0.2 % (0.0-5.0); LYMPH% 29.3 % (15-41); MEAN CELL VOLUME 96.4 fL CALC (80.0-100.0); MEAN CORPUSCULAR HGB 29.3 pG CALC (26.0-32.0); MEAN CORPUSCULAR HGB CONC 30.4 g/dL CAL (32.0-36.0); MONO% 13.9 % (2-13); NEUT# 2.4 thou/uL (2.00-7.15); NEUT% 46.3 % (42-76); RED BLOOD COUNT 3.65 mill/uL (4.20-5.60); RED CELL DISTRI WIDTH 17.4 % (11.5-15.5)
[2024-09-24 06:09] LABS: ALBUMIN 3.4 g/dL (3.2-5.0); BILIRUBIN, TOTAL 0.9 mg/dL (0.02-1.3); CREATININE 0.5 mg/dL (0.5-1.0); MAGNESIUM 1.9 mg/dL (1.6-2.3); POTASSIUM 4.5 mmol/l (3.5-5.1); TOTAL PROTEIN 7.7 g/dL (6.3-8.2)
[2024-09-25 03:49] VITALS: BP 121/78
[2024-09-25 06:00] LABS: BASO% 1.7 % (0-3); EOS% 11.3 % (0-8); HEMATOCRIT 31.7 % (37.0-47.0); HEMOGLOBIN 9.8 g/dl (12.0-16.0); IMMATURE GRANULOCYTES 0.2 % (0.0-5.0); LYMPH% 29.6 % (15-41); MEAN CELL VOLUME 95.5 fL CALC (80.0-100.0); MEAN CORPUSCULAR HGB 29.5 pG CALC (26.0-32.0); MEAN CORPUSCULAR HGB CONC 30.9 g/dL CAL (32.0-36.0); MONO% 10.3 % (2-13); NEUT# 2.24 thou/uL (2.00-7.15); NEUT% 46.9 % (42-76); RED BLOOD COUNT 3.32 mill/uL (4.20-5.60); RED CELL DISTRI WIDTH 17.5 % (11.5-15.5)
[2024-09-25 06:24] LABS: ALBUMIN 3.3 g/dL (3.2-5.0); BILIRUBIN, TOTAL 0.7 mg/dL (0.02-1.3); CREATININE 0.5 mg/dL (0.5-1.0); MAGNESIUM 1.8 mg/dL (1.6-2.3); POTASSIUM 4.2 mmol/l (3.5-5.1); TOTAL PROTEIN 7.5 g/dL (6.3-8.2)
[2024-09-25 06:50] VITALS: BP 130/73
[2024-09-25 08:00] VITALS: BP 130/73
[2024-09-25] MEDS ORDERED: SODIUM CHLORIDE 0.9% 0 ML IV ONE (12:06)
[2024-09-25] MEDS ORDERED: LEVOTHYROXIN50 MC1 PO (13:51)
[2024-09-25] MEDS ORDERED: LOSARTAN POTASS50 MG PO (13:51)
[2024-09-25] MEDS ORDERED: GABAPENTIN800 MG PO (13:51)
[2024-09-25] MEDS ORDERED: METFORMIN HCL1000 MG PO (13:51)
[2024-09-25] MEDS ORDERED: LASIX 40 MG TAB40 MG PO (13:51)
[2024-09-26] MEDS ORDERED: XANAX0.25 MG PO (16:03)
== END 2024-09-25 16:13 | disposition home or self-care (01) | DRG 638 ==
LOC: ED 13:07 → ED-I 17:09 → ED 17:53 → MS2 17:54 → ED-I 17:54 → MS2 09-14 11:51
PROVIDERS: Internal Medicine; Nurse Practitioner; Nurse Practitioner Family; ADMIT Internal Medicine; ATTEND Internal Medicine
PROC: 02HV33Z Insertion of Infusion Device into Superior Vena Cava, Percutaneous Approach (ICD-10-PCS; principal; 2024-09-21)
PROC: B518ZZA Fluoroscopy of Superior Vena Cava, Guidance (ICD-10-PCS; 2024-09-21)
DX: E11.69 Type 2 diabetes mellitus with other specified complication (principal); L03.115 Cellulitis of right lower limb; M86.8X7 Other osteomyelitis, ankle and foot; L03.116 Cellulitis of left lower limb; E11.628 Type 2 diabetes mellitus with other skin complications; L03.032 Cellulitis of left toe; L03.031 Cellulitis of right toe; E11.65 Type 2 diabetes mellitus with hyperglycemia; I11.0 Hypertensive heart disease with heart failure; I50.9 Heart failure, unspecified; I25.10 Atherosclerotic heart disease of native coronary artery without angina pectoris; E11.621 Type 2 diabetes mellitus with foot ulcer; L97.529 Non-pressure chronic ulcer of other part of left foot with unspecified severity; E11.42 Type 2 diabetes mellitus with diabetic polyneuropathy; S81.812A Laceration without foreign body, left lower leg, initial encounter; L84 Corns and callosities; K74.60 Unspecified cirrhosis of liver; F15.10 Other stimulant abuse, uncomplicated; F41.9 Anxiety disorder, unspecified; G47.00 Insomnia, unspecified; X58.XXXA Exposure to other specified factors, initial encounter; T50.906A Underdosing of unspecified drugs, medicaments and biological substances, initial encounter; Z91.128 Patient's intentional underdosing of medication regimen for other reason; Z98.84 Bariatric surgery status; Z89.421 Acquired absence of other right toe(s); Z79.84 Long term (current) use of oral hypoglycemic drugs; Z72.0 Tobacco use; Z91.199 Patient's noncompliance with other medical treatment and regimen due to unspecified reason; Z22.322 Carrier or suspected carrier of Methicillin resistant Staphylococcus aureus
CPT/HCPCS: J0456; J0692; J0696; J0878; J1171; J1650; J1815; J2405; J3370; J3475